=== PATIENT | male | born 1945 | race Caucasian/White ===

== ENCOUNTER → 2022-09-02 12:43 | Outpatient (CLI) | payer MEDICARE, SELFPAY ==
--- NOTE | ~2022-09-02 | US_ITS ---
EXAMINATION: US renal BI DATE: 09/02/2022 13:39 INDICATION: N18.4 - Chronic kidney disease, stage 4 (severe) TECHNIQUE: Multiple grayscale and Doppler ultrasound images of the kidneys were obtained. COMPARISON: None. FINDINGS: The right kidney measures 10.0 x 6.0 x 6.1 cm. The left kidney measures 10.4 x 4.9 x 4.2 cm. The kidn eys demonstrate increased parenchymal echogenicity, cortical thinning, and cortical scarring. Multipl e simple bilateral renal cysts. There is no hydronephrosis. The bladder wall is thickened to 7 mm. IMPRESSION: Medical renal disease. Mild renal cortical atrophy. Multiple bilateral simple renal cysts. Bladder wa ll thickening which can occur with outlet compromise and cystitis. Reviewed, dictated and finalized at location K. IMPRESSION: Medical renal disease. Mild renal cortical atrophy. Multiple bilateral simple r enal cysts. Bladder wall thickening which can occur with outlet compromise and cystitis.
== END ==
PROVIDERS: PCP Internal Medicine Cardiovascular Disease; Visit Provider Family Medicine
DX: N18.4 Chronic kidney disease, stage 4 (severe) (principal); N28.1 Cyst of kidney, acquired; R93.41 Abnormal radiologic findings on diagnostic imaging of renal pelvis, ureter, or bladder
CPT/HCPCS: 76775

== ENCOUNTER 2022-12-07 00:14 | Day surgery (SDC) | payer MEDICARE, SELFPAY ==
--- NOTE | 2022-12-07 08:45 | ECG_ITS ---
Measurements Intervals [place] Rate: 123 P: [place]: 0 QRS: 64 QRSD: 97 T: 120 QT: 328 QTc: 471 Interpretive Statements ATRIAL FIBRILLATION WITH RAPID VENTRICULAR RESPONSE ST-T WAVE ABNORMALITY IN ANTERIOR LEADS- CONSIDER ISCHEMIA BASELINE ARTIFACT- AVL, V4-V6 ABNORMAL ECG NO PREVIOUS ECG AVAILABLE FOR COMPARISON Electronically Signed On 12-07-2022 9:16:30 CDT by Sivakumar Alvarez D.O.
[2022-12-07 09:29] VITALS: BMI 28.9
[2022-12-07 09:32] LABS: Anion Gap 9 mmol/L (8-16); Blood Urea Nitrogen 32 mg/dL (9-20); Calcium 8.6 mg/dL (8.4-10.2); Carbon Dioxide 25 mmol/L (22-30); Chloride 106 mmol/L (98-107); Estimated CRCL calculation 31 ml/min; Estimated Glomerular Filt Rate 37; Glucose 173 mg/dL (65-110); Magnesium 2.2 mg/dL (1.6-2.3); Potassium 3.6 mmol/L (3.4-5.0); Sodium 140 mmol/L (137-145)
[2022-12-07 09:43] VITALS: BP 114/87; PULSE 109; RESP 20; TEMP 36.1; O2SAT 92
[2022-12-07] MEDS: DABIGATRAN ETEXILATE 150 MG CAPSULE PO (10:48)
== END 2022-12-07 11:06 | disposition home or self-care (01) ==
PROVIDERS: PCP Family Medicine; Visit Provider Internal Medicine Cardiovascular Disease
PROC: 5A2204Z Restoration of Cardiac Rhythm, Single (ICD-10-PCS; principal; 2022-12-07 08:30)
DX: I48.0 Paroxysmal atrial fibrillation (principal); I25.10 Atherosclerotic heart disease of native coronary artery without angina pectoris; I12.9 Hypertensive chronic kidney disease with stage 1 through stage 4 chronic kidney disease, or unspecified chronic kidney disease; N18.31 Chronic kidney disease, stage 3a; Z95.5 Presence of coronary angioplasty implant and graft; Z79.84 Long term (current) use of oral hypoglycemic drugs; Z79.01 Long term (current) use of anticoagulants; Z53.9 Procedure and treatment not carried out, unspecified reason
CPT/HCPCS: 36415; 80048; 83735; 99212; A9270; G0463

== ENCOUNTER 2022-12-13 00:17 | Day surgery (SDC) | payer MEDICARE, SELFPAY ==
[2022-12-12 17:00] VITALS: BMI 28.9
[2022-12-13] VITALS (23 sets, daily range): BP systolic 69–120; BP diastolic 49–100; PULSE 57–113; RESP 7–26; TEMP 35.9; O2SAT 92–100; BMI 29.2
--- NOTE | 2022-12-13 08:30 | ECG_ITS ---
Measurements Intervals [place] Rate: 59 P: 39 GA: 194 QRS: 67 QRSD: 102 T: 120 QT: 478 QTc: 477 Interpretive Statements SINUS BRADYCARDIA POSSIBLE RIGHT VENTRICULAR CONDUCTION DELAY [RSR (QR) IN V1/V2] ST DEVIATION AND MODERATE T-WAVE ABNORMALITY, CONSIDER ANTERIOR ISCHEMIA [-0.1+ mV T WAVE IN V3/V4] COMPARED TO ECG 12/13/2022 08:53:17 SINUS BRADYCARDIA NOW PRESENT Electronically Signed On 12-13-2022 12:41:33 CDT by Shanita Marin M.D.
[2022-12-13 09:12] LABS: Anion Gap 8 mmol/L (8-16); Blood Urea Nitrogen 32 mg/dL (9-20); Calcium 8.4 mg/dL (8.4-10.2); Carbon Dioxide 27 mmol/L (22-30); Chloride 104 mmol/L (98-107); Estimated CRCL calculation 33 ml/min; Estimated Glomerular Filt Rate 39; Glucose 194 mg/dL (65-110); Magnesium 2.3 mg/dL (1.6-2.3); Potassium 4.5 mmol/L (3.4-5.0); Sodium 139 mmol/L (137-145)
--- NOTE | 2022-12-13 10:01 | WPDHPUPDATE1 ---
History and Physical Update Update Date/Time: 12/13/22 10:01 History and Physical has been reviewed, including an updated exam of the patient. There are NO changes in the patient's condition. Risks, benefits, and alternatives have been discussed and questions answered. Patient agrees to proceed with procedure.
--- NOTE | 2022-12-13 10:01 | WPDMODSED ---
Moderate Sedation Note-Pt Data Patient Data Diagnosis: Atrial fibrillation Present Complaint: Atrial fibrillation Procedure to be performed/Plan: Cardioversion Allergies Allergy/AdvReac Type Severity Reaction Status Date / Time No Known Allergies Allergy NONE Verified 12/12/22 18:41 Home Medications Medication Instructions Recorded Confirmed Type dabigatran etexilate 150 mg 150 mg PO BID 02/05/19 12/12/22 History capsule (Pradaxa) nitroglycerin 0.4 mg sublingual 0.4 mg sublingual Q5M PRN Chest 02/05/19 12/12/22 History tablet (Nitrostat) Pain cholecalciferol (vitamin D3) 50 50 mcg PO DAILY 07/12/19 12/12/22 History mcg (2,000 unit) capsule coenzyme Q10 400 mg capsule (Co 400 mg PO DAILY 07/12/19 12/12/22 History Q-10) multivitamin with minerals (Men's 1 tablet PO DAILY 07/12/19 12/12/22 History One Daily tablet) ezetimibe 10 mg tablet 10 mg PO DAILY 12/02/19 12/12/22 History metoprolol tartrate 100 mg tablet 200 mg PO Q12H 12/02/19 12/12/22 History rosuvastatin 40 mg tablet 40 mg PO DAILY 12/02/19 12/12/22 History garlic 3 mg capsule 3 mg PO DAILY 05/12/20 12/12/22 History blood sugar diagnostic (Contour #100 ea 11/24/21 08/11/22 Rx Test Strips) glimepiride 4 mg tablet 4 mg PO BID #180 tabs 05/30/22 12/12/22 Rx empagliflozin 10 mg tablet 10 mg PO DAILY #90 tabs 11/25/22 12/12/22 Rx (Jardiance) indapamide 2.5 mg tablet 2.5 mg PO EVERY OTHER DAY #15 tabs 12/07/22 12/12/22 Rx Current Medications: Active Medications Sodium Chloride (Normal Saline Iv) 1,000 mls @ 30 mls/hr IV CONT .Q24H ANICETO Sedation/Anesthesia: No previous sedation/anesthesia problems (including family history). [facility] Past Medical History Medical History CAD in [place] artery Carotid artery disease Chronic renal insufficiency, stage IV (severe) Hyperlipidemia Type 2 diabetes mellitus Surgical History Surgical History History of cardiac catheterization (2002) History of carotid endarterectomy (05/15/09) History of heart artery stent History of total hip replacement Hx of right cataract extraction Family History Family History Father Cerebrovascular accident Carcinoma of colon Sibling Family history of malignant neoplasm of breast in first degree relative Mother Family history of heart disease in male family member before age 55 Family history of cardiovascular disease Other Diabetes mellitus Hypertension Social History Social History Smoking status: Never smoker Second hand tobacco smoke exposure: No Alcohol intake: never Substance use: never Substance use type: does not use Lack of Transportation: No Lack of Food: Never True Current Housing: I Have Housing Concerned About Future Housing: No Difficulty Paying Gas/Electric Bills: No Difficulty Paying for Meds: No Currently Unemployed: No Education: High School Diploma/GED Difficulty w/ Childcare or Family Care: No Living arrangements: alone Occupation/Education: retired Gender identity (if verbalized by the patient): Male Sexual Orientation (if Verbalized by the Patient): Straight or Heterosexual Spiritual care concerns: No Agree to blood products: Yes Mod Sed Physical Exam Physical Exam Pre Procedural Exam: Normal: Appearance, Neuro Exam, Extremities and Skin and Variation: Heart Rate (Rate controlled atrial fibrillation ) and Heart Rhythm (Atrial fibrillation, rate controlled) Hours since solid foods: 12 Hours since liquid intake: 8 Mallampati Classification: class III Internal Medicine - PN: Obj Da Vital Signs Vital Signs: Vital Signs - 24 hr 12/13/22 08:52 Temperature 35.9 C L Pulse Rate 91 Respiratory Rate 26 H Pulse Oximetry 92 Oxygen Delivery Room Air Meds/Results Medicat
--- NOTE | 2022-12-13 10:02 | WPDCARDVER ---
Cardioversion Cardioversion Date of procedure: 12/13/22 Procedure: Synchronized electrical cardioversion Pre-op diagnosis: Atrial fibrillation Post-op diagnosis: Other (Sinus rhythm ) Indications: Atrial fibrillation Description of procedure: Patient [facility] for outpatient elective cardioversion for atrial fibrillation. Procedure discussed with the patient, including procedure details, risks vs benefits. Written informed consent obtained. Patient respiratory status and hemodynamics were monitored throughout. Time out performed by SAWYER Yang. Total of Propofol 40mg IV administered by me. After patient was adequately sedated, synchronized cardioversion was performed with 1 shock at 200 joules, which converted patient to sinus rhythm. Sedation: Total of Propofol 40mg IV Findings: Successful cardioversion to sinus rhythm with 1 shock at 200 joules. Conclusion: Successful cardioversion to sinus rhythm with 1 shock at 200 joules.
--- NOTE | 2022-12-13 10:15 | ECG_ITS ---
Measurements Intervals [place] Rate: 100 P: [place]: 0 QRS: 60 QRSD: 97 T: 0 QT: 368 QTc: 475 Interpretive Statements ATRIAL FIBRILLATION WITH RAPID VENTRICULAR RESPONSE ST DEVIATION AND MODERATE T-WAVE ABNORMALITY, CONSIDER ANTERIOR ISCHEMIA [-0.1+ mV T WAVE IN V3/V4] COMPARED TO ECG 12/07/2022 08:52:02 NO SIGNIFICANT CHANGES Electronically Signed On 12-13-2022 12:37:03 CDT by Shanita Marin M.D.
== END 2022-12-13 13:02 | disposition home or self-care (01) ==
PROVIDERS: PCP Family Medicine; Visit Provider Internal Medicine
PROC: 5A2204Z Restoration of Cardiac Rhythm, Single (ICD-10-PCS; principal; 2022-12-13 10:00)
DX: I48.0 Paroxysmal atrial fibrillation (principal); I25.10 Atherosclerotic heart disease of native coronary artery without angina pectoris; I12.9 Hypertensive chronic kidney disease with stage 1 through stage 4 chronic kidney disease, or unspecified chronic kidney disease; E11.22 Type 2 diabetes mellitus with diabetic chronic kidney disease; N18.4 Chronic kidney disease, stage 4 (severe); E78.5 Hyperlipidemia, unspecified; Z79.84 Long term (current) use of oral hypoglycemic drugs; Z79.01 Long term (current) use of anticoagulants; Z95.5 Presence of coronary angioplasty implant and graft
CPT/HCPCS: 36415; 80048; 83735; 92960; J2704; J7030

== ENCOUNTER 2023-01-09 12:03 | Observation (INO) | payer MEDICARE, SELFPAY ==
[2023-01-09] VITALS (14 sets, daily range): BP systolic 99–137; BP diastolic 61–99; PULSE 86–140; RESP 16–20; TEMP 36.2–36.7; O2SAT 95–98; BMI 27.8
--- NOTE | ~2023-01-09 | XR_ITS ---
EXAMINATION: XR chest 1V portable DATE: 01/09/2023 13:21 INDICATION: Atrial fibrillation with rapid ventricular response TECHNIQUE: frontal view of the chest was obtained. COMPARISON: Chest radiograph dated 03/17/2009 FINDINGS: Mild elevation right hemidiaphragm. There are airspace opacities in the right lower lung zone which i nclude a small right pleural effusion. Mild left basilar opacities with very small left pleural effus ion. No pneumothorax. Heart size is normal. Coronary artery stenting. Tortuous and atherosclerotic th oracic aorta. Mild to moderate degenerative skeletal changes in the spine and at both shoulders. IMPRESSION: 1. Opacities at the bilateral lower lung zones, right greater than left which could represent atelect asis, pneumonia, mild pulmonary edema or some combination thereof. 2. Small bilateral pleural effusions, right greater than left. Reviewed, dictated and finalized at location A. IMPRESSION: 1. Opacities at the bilateral lower lung zones, right greater than left which c ould represent atelectasis, pneumonia, mild pulmonary edema or some combination thereof. 2. Small bilateral pleural effusions, right greater than left.
--- NOTE | 2023-01-09 12:12 | ECG_ITS ---
Measurements Intervals [place] Rate: 128 P: RI: 347 QRS: 61 QRSD: 100 T: 260 QT: 335 QTc: 489 Interpretive Statements ATRIAL FIBRILLATION WITH RAPID VENTRICULAR RESPONSE ST DEVIATION AND MODERATE T-WAVE ABNORMALITY, CONSIDER ANTERIOR ISCHEMIA [-0.1+ mV T WAVE IN V3/V4] ST DEVIATION AND MODERATE T-WAVE ABNORMALITY, CONSIDER INFERIOR ISCHEMIA [-0.1+ mV T WAVE IN II/aVF] COMPARED TO ECG 12/13/2022 10:13:36 ATRIAL FIBRILLATION WITH RVR NOW PRESENT Electronically Signed On 01-10-2023 11:20:06 CDT by Shanita Marin M.D.
[2023-01-09] MEDS: SODIUM CHLORIDE 0.9% IV 500 ML 999 ML IV CONT (12:59)
[2023-01-09] MEDS: dilTIAZem HCl INJ 25 MG/5 ML VIAL 10 MG IV PUSH ×2 (13:02→15:39)
[2023-01-09 13:25] LABS: Basophils Percent Auto 0.3 % (0.2-1.2); Eosinophils Absolute Auto 0.1 K/mm3 (0-0.3); Hematocrit 40.4 % (42.0-52.0); Hemoglobin 11.4 g/dL (14.0-18.0); Immature Granulocyte Absolute 0.03 K/mm3 (0.00-0.031); Immature Granulocyte Percent A 0.4 % (0-0.5); Lymphocytes Absolute Auto 0.87 K/mm3 (0.9-3.2); Lymphocytes Percent Auto 12.8 % (18.3-44.2); Mean Corpuscular HGB Conc 28.2 g/dl (32-36); Mean Corpuscular Volume 92.2 fl (80-100); Mean Platelet Volume 10.7 fl (7.4-10.4); Monocytes Absolute Auto 0.7 K/mm3 (0.1-0.6); Monocytes Percent Auto 10.3 % (2.6-8.5); Neutrophils Absolute Auto 5.1 K/mm3 (1.3-6.7); Neutrophils Percent Auto 75.2 % (45.5-73.1); Nucleated Red Blood Cells Perc 0.3 % (0.0-0.2); Platelet Count Result 233 k/mm3 (150-375); Red Blood Count 4.38 M/mm3 (4.6-6.20); Red Cell Distribution Width 18.8 % (11.5-14.5); White Blood Count 6.8 K/mm3 (4.5-10.0)
[2023-01-09 13:38] LABS: Anisocytosis 2+ (NORMAL); Hypochromasia 1+ (NORMAL); Platelet Estimate Adequate (Adequate); Schistocytes None Seen (NORMAL)
[2023-01-09 13:41] LABS: Alanine Aminotransferase 77 U/L (6-50); Albumin Level 3.8 g/dL (3.5-5.1); Alkaline Phosphatase 140 U/L (38-126); Anion Gap 8 mmol/L (8-16); Aspartate Amino Transferase 84 U/L (17-59); Bilirubin,Total 0.9 mg/dL (0.2-1.3); Blood Urea Nitrogen 29 mg/dL (9-20); Calcium 8.8 mg/dL (8.4-10.2); Carbon Dioxide 31 mmol/L (22-30); Chloride 95 mmol/L (98-107); Estimated CRCL calculation 37 ml/min; Estimated Glomerular Filt Rate 45; Glucose 159 mg/dL (65-110); Magnesium 2.3 mg/dL (1.6-2.3); Potassium 3.6 mmol/L (3.4-5.0); Sodium 134 mmol/L (137-145)
[2023-01-09 14:02] LABS: Troponin I 0.043 ng/mL (0.000-0.034)
--- NOTE | 2023-01-09 15:16 | ED.RECABL ---
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 The patient states he was presenting for a routine appointment, when he was found to be tachycardic. He denies chest pain, shortness of breath or loss of consciousness. Related Data Home Medications Medication Instructions Recorded Confirmed dabigatran etexilate 150 mg 150 mg PO BID 02/05/19 01/02/23 capsule (Pradaxa) nitroglycerin 0.4 mg sublingual 0.4 mg sublingual Q5M PRN Chest 02/05/19 01/02/23 tablet (Nitrostat) Pain cholecalciferol (vitamin D3) 50 50 mcg PO DAILY 07/12/19 01/02/23 mcg (2,000 unit) capsule coenzyme Q10 400 mg capsule (Co 400 mg PO DAILY 07/12/19 01/02/23 Q-10) multivitamin with minerals (Men's 1 tablet PO DAILY 07/12/19 01/02/23 One Daily tablet) ezetimibe 10 mg tablet 10 mg PO DAILY 12/02/19 01/02/23 metoprolol tartrate 100 mg tablet 200 mg PO Q12H 12/02/19 01/02/23 rosuvastatin 40 mg tablet 40 mg PO DAILY 12/02/19 01/02/23 garlic 3 mg capsule 3 mg PO DAILY 05/12/20 01/02/23 Allergies Allergy/AdvReac Type Severity Reaction Status Date / Time No Known Allergies Allergy NONE Verified 01/09/23 11:14 Review of Systems Review of Systems: CONSTITUTIONAL: Denies fever, chills, or sweats. CARDIOVASCULAR: Denies chest pain, palpitations, or edema. RESPIRATORY: Denies cough or dyspnea. GASTROINTESTINAL: Denies abdominal pain, nausea, vomiting, or diarrhea. GENITOURINARY: Denies dysuria or hematuria. SKIN: Denies rash or itching. MUSCULOSKELETAL: Denies back pain, joint pain, or myalgia. NEUROLOGIC: Denies headache, numbness, dizziness, or weakness. PSYCHIATRIC: Denies anxiety or depression. [facility] Past Medical History Medical History (Updated 01/09/23 @ 15:20 by Louis Ibrahim MD) Atrial fibrillation with normal ventricular rate CAD in [place] artery Carotid artery disease Chronic renal insufficiency, stage IV (severe) Hyperlipidemia Type 2 diabetes mellitus Surgical History Surgical History History of cardiac catheterization (2002) History of carotid endarterectomy (05/15/09) History of heart artery stent History of total hip replacement Hx of right cataract extraction Family History Family History Father Cerebrovascular accident Carcinoma of colon Sibling Family history of malignant neoplasm of breast in first degree relative Mother Family history of heart disease in male family member before age 55 Family history of cardiovascular disease Other Diabetes mellitus Hypertension Social History Social History Smoking status: Never smoker Second hand tobacco smoke exposure: No Alcohol intake: never Substance use: never Substance use type: does not use Lack of Transportation: No Lack of Food: Never True Current Housing: I Have Housing Concerned About Future Housing: No Difficulty Paying Gas/Electric Bills: No Difficulty Paying for Meds: No Currently Unemployed: No Education: High School Diploma/GED Difficulty w/ Childcare or Family Care: No Living arrangements: alone Occupation/Education: retired Gender identity (if verbalized by the patient): Male Sexual Orientation (if Verbalized by the Patient): Straight or Heterosexual Spiritual care concerns: No Agree to blood products: Yes Exam Narrative: GENERAL: Well-developed, well-nourished, and in no acute distress. HEAD: Normocephalic, atraumatic. EYES: PERRLA and EOMI. ENT: Nares clear, no rhinorrhea or epistaxis. Mucous membranes moist. Oropharynx wit
[2023-01-09 18:06] LABS: Troponin I 0.041 ng/mL (0.000-0.034)
--- NOTE | 2023-01-09 19:00 | ADMGEN ---
This patient, Andrei Rao, was admitted to IMU Room 200-01. Patient/family oriented to hospital policies and general routines including ID bracelet, bed and alarms, visiting hours, pain management, procedures, bathroom and other care routines, personal items, smoking policy, room service/diet, and visiting hours. Information on how to activate the Rapid Response Team has been discussed. Patient/Family are encouraged to report perceived risks to care and to ask questions if they do not understand what they are told or what they should do.
--- NOTE | 2023-01-09 19:09 | PM.IMHP ---
H&P: HPI History of Present Illness Date/Time: 01/09/23 18:00 Chief Complaint: Rapid heart rate. Narrative: This is a pleasant 77-year-old male with coronary artery disease status post stent, carotid artery disease status post carotid endarterectomy, paroxysmal atrial fibrillation on chronic anticoagulation, type 2 diabetes mellitus, chronic kidney disease stage 3, hypertension, and hyperlipidemia who presented to the emergency department from Dr. Dorsey's office for evaluation of a rapid heart rate. The patient provides the following history. In August of this year he saw Dr. Smith in routine follow-up in had lab work drawn which revealed that his GFR has fallen to 29. He was told to stop taking indapamide and sometime later his GFR mino to 40. Since that time however he has developed increasing lower extremity edema and he was started back on the drug 3 times a week which did not seem to help. It was then increased to 4 times a week without much benefit and he has been back on indapamide daily for the last 3 weeks or so. His swelling has improved and today he had an initial consultation with Dr. Dorsey regarding his kidney function. Vital signs during that visit were significant for rapid atrial fibrillation with rates into the 150s and soft blood pressures. He was directed to the emergency department for further evaluation. Aside from a decrease in energy the past couple of months, he does not have any significant complaints. Regarding the atrial fibrillation, he is completely asymptomatic with that. Patient reports that he had an elective cardioversion on December 13 and to his knowledge he thought he was back in a normal rhythm. In the ED today he was given 2 separate boluses of IV diltiazem 10 mg with improvement in his rates. His troponin came back a bit elevated 0.043 and he is being admitted in this setting for rate control and in order to trend troponins though he is not having any chest pain. EKG shows an electronic atrial pacemaker with ST depression and T-wave abnormalities in V2 through V5 and some ST depression in the high lateral leads as well. Review of Systems Review of Systems: Twelve systems were reviewed. No fever, chills, or sweats. He does have a cough which is occasionally productive of clear sputum. He denies sinus congestion sore throat. No known sick contacts. He denies chest and pleuritic pain. No sensations of racing heart or palpitations. He denies shortness of breath. No nausea, vomiting, or diarrhea. Except as documented, all other systems were reviewed and are negative. [facility] Past Medical History Medical History (Updated 01/09/23 @ 22:49 by Francesca Chilel PA-C) Carotid artery disease Chronic anticoagulation Chronic kidney disease, stage 3 Coronary artery disease Hyperlipidemia Paroxysmal atrial fibrillation Type 2 diabetes mellitus Surgical History Surgical History History of cardiac catheterization (2002) History of carotid endarterectomy (05/15/09) History of heart artery stent History of total hip replacement Hx of right cataract extraction Family History Family History Father Cerebrovascular accident Carcinoma of colon Sibling Family history of malignant neoplasm of breast in first degree relative Mother Family history of heart disease in male family member before age 55 Family history of cardiovascular disease Other Diabetes mellitus Hypertension Social History Social History (Updated 01/09/23 @ 22:46 by Francesca Chilel PA-C) Social History: Surrogate medical decision maker: Razia Petit, niece. Code status: Full code. Smoking status: Never smoker Second hand tobacco smoke exposure: No Alcohol intake: never Substance use: never Substance use type: does not use Lack of Transportation: No Lack of Food: Never True Current Housing: I Have
[2023-01-09 19:43] LABS: Troponin I 0.041 ng/mL (0.000-0.034)
[2023-01-09 19:52] LABS: Glucose Point of Care 82 mg/dl (65-105)
[2023-01-09] MEDS: METOPROLOL TARTRATE 50 MG TAB 200 MG PO (23:35)
[2023-01-09] MEDS: DABIGATRAN ETEXILATE 150 MG CAPSULE PO (23:35)
[2023-01-10] VITALS (30 sets, daily range): BP systolic 83–120; BP diastolic 43–98; PULSE 54–127; RESP 11–29; TEMP 36–36.4; O2SAT 92–100
[2023-01-10 05:02] LABS: Basophils Percent Auto 0.6 % (0.2-1.2); Eosinophils Absolute Auto 0.1 K/mm3 (0-0.3); Eosinophils Percent Auto 2.2 % (0-4.4); Hematocrit 36.1 % (42.0-52.0); Hemoglobin 10.2 g/dL (14.0-18.0); Immature Granulocyte Absolute 0.02 K/mm3 (0.00-0.031); Immature Granulocyte Percent A 0.4 % (0-0.5); Lymphocytes Absolute Auto 0.58 K/mm3 (0.9-3.2); Lymphocytes Percent Auto 11.5 % (18.3-44.2); Mean Corpuscular HGB Conc 28.3 g/dl (32-36); Mean Corpuscular Hemoglobin 25.7 pg (26-34); Mean Corpuscular Volume 90.9 fl (80-100); Mean Platelet Volume 10.3 fl (7.4-10.4); Monocytes Absolute Auto 0.7 K/mm3 (0.1-0.6); Monocytes Percent Auto 13.1 % (2.6-8.5); Neutrophils Absolute Auto 3.6 K/mm3 (1.3-6.7); Neutrophils Percent Auto 72.2 % (45.5-73.1); Platelet Count Result 202 k/mm3 (150-375); Red Blood Count 3.97 M/mm3 (4.6-6.20); Red Cell Distribution Width 18.6 % (11.5-14.5)
[2023-01-10 05:15] LABS: Alanine Aminotransferase 64 U/L (6-50); Albumin Level 3.2 g/dL (3.5-5.1); Alkaline Phosphatase 113 U/L (38-126); Anion Gap 5 mmol/L (8-16); Aspartate Amino Transferase 65 U/L (17-59); Bilirubin,Total 0.7 mg/dL (0.2-1.3); Blood Urea Nitrogen 29 mg/dL (9-20); Calcium 8.4 mg/dL (8.4-10.2); Carbon Dioxide 30 mmol/L (22-30); Chloride 100 mmol/L (98-107); Estimated CRCL calculation 40 ml/min; Estimated Glomerular Filt Rate 49; Glucose 186 mg/dL (65-110); Magnesium 2.3 mg/dL (1.6-2.3); Potassium 3.3 mmol/L (3.4-5.0); Sodium 135 mmol/L (137-145)
[2023-01-10 05:36] LABS: Anisocytosis 1+ (NORMAL); Hypochromasia 1+ (NORMAL); Platelet Estimate Adequate (Adequate); Schistocytes None Seen (NORMAL)
--- NOTE | 2023-01-10 08:35 | PM.CNCAR ---
Assessment and Plan Assessment and plan (1) Atrial fibrillation with rapid ventricular response: Code(s): I48.91 - Unspecified atrial fibrillation Status: Acute Assessment and Plan: History of paroxysmal atrial fibrillation status post electrical cardioversion on 12/13/2022 with jew of sinus rhythm now with recurrence of atrial fibrillation with RVR. Plan for DCCV today. K+ 3.3, so will give 40 mEq p.o. now Continue a/c with Pradaxa (confirmed with pt. that he has not missed any doses). Continue metoprolol tartrate - can shift to Toprol XL at d/c for dosing convenience Close outpatient EP follow up to consider ablation/PPM placement or other management options If he remains stable after DCCV, could discharge later today (2) Coronary artery disease: Code(s): I25.10 - Atherosclerotic heart disease of [place] coronary artery without angina pectoris Status: Acute Assessment and Plan: Stable, asymptomatic. Continue statin. Not on ASA since he takes DOAC (3) Chronic anticoagulation: Code(s): Z79.01 - jail (current) use of anticoagulants Status: Acute Assessment and Plan: Continue a/c with Pradaxa (4) Hypokalemia: Code(s): E87.6 - Hypokalemia Status: Acute Assessment and Plan: K+ 3.3. Give 40 mEq KCL now. History of Present Illness History of Present Illness Consult date/time: 01/10/23 08:35 Requesting physician: Francesca Chilel PA-C Consult reason: atrial fibrillation Reason For Visit: Afib RVR Narrative: Andrei Rao is a 77-year-old male with history of coronary artery disease with chronic total occlusion of the RCA, carotid artery disease status post carotid endarterectomy, peripheral arterial disease, hypertension, dyslipidemia, and paroxysmal atrial fibrillation. He also has a history of persistent atrial flutter status post ablation of cavotricuspid isthmus dependent atrial flutter on 04/20/2021. This is a patient who underwent electrical cardioversion here with successful jew of sinus rhythm. He presents to the hospital now with recurrent atrial fibrillation with rapid ventricular response. 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 He denies feeling any palpitations, chest pain, shortness of breath. He does endorse fatigue. He was given a couple of doses of IV push diltiazem and his rate remains elevated but he is asymptomatic. Review of Systems Review of Systems: All systems reviewed & are unremarkable except as noted in HPI and below PMFSH Past Medical History Medical History Carotid artery disease Chronic anticoagulation Chronic kidney disease, stage 3 Coronary artery disease Hyperlipidemia Paroxysmal atrial fibrillation Type 2 diabetes mellitus Surgical History Surgical History History of cardiac catheterization (2002) History of carotid endarterectomy (05/15/09) History of heart artery stent History of total hip replacement Hx of right cataract extraction Family History Family History Father Cerebrovascular accident Carcinoma of colon Sibling Family history of malignant neoplasm of breast in first degree relative Mother Family history of heart disease in male family member before age 55 Family history of cardiovascular disease Other Diabetes mellitus Hypertension Social History Social History Social History: Surrogate medical decision maker: Razia Petit, niece. Code status: Full code. Smoking status: Never smoker Second hand tobacco smoke exposure: No Alcohol intake: never Substance use: never Substance use type: does not use Lack of Transportation: No Lack of Food: Never True Current
[2023-01-10 08:56] LABS: Glucose Point of Care 158 mg/dl (65-105)
[2023-01-10] MEDS: GLIMEPIRIDE 2 MG TABLET 4 MG PO ×2 (09:08→17:01)
[2023-01-10] MEDS: CHOLECALCIFEROL 1,000 UNITS TABLET 2000 UNITS PO (09:08)
[2023-01-10] MEDS: METOPROLOL TARTRATE 50 MG TAB 200 MG PO ×2 (09:09→20:22)
[2023-01-10] MEDS: EMPAGLIFLOZIN 10 MG TABLET PO (09:13)
[2023-01-10] MEDS: INDAPAMIDE 2.5 MG TABLET PO (09:15)
[2023-01-10] MEDS: EZETIMIBE 10 MG TABLET PO (09:16)
[2023-01-10] MEDS: ROSUVASTATIN 10 MG TABLET 40 MG PO (09:18)
[2023-01-10] MEDS: DABIGATRAN ETEXILATE 150 MG CAPSULE PO ×2 (09:21→20:21)
[2023-01-10] MEDS: POTASSIUM CHLORIDE 20 MEQ ER TABLET 40 MEQ PO (10:47)
--- NOTE | 2023-01-10 12:56 | PC.NURSE ---
to [facility] for cardioversion-via bed accompanied by [facility] RN -consent signed-
--- NOTE | 2023-01-10 13:03 | ECG_ITS ---
Measurements Intervals [place] Rate: 54 P: [place]: 0 QRS: 35 QRSD: 102 T: -60 QT: 464 QTc: 441 Interpretive Statements SINUS BRADYCARDIA ATRIAL PREMATURE COMPLEX AND NON-CONDUCTED ATRIAL PREMATURE COMPLEX INCOMPLETE RIGHT BUNDLE BRANCH BLOCK ST-T WAVE ABNORMALITY IN ANTERIOR LEADS- CONSIDER ISCHEMIA BASELINE ARTIFACT- II, III, V1 ABNORMAL ECG COMPARED TO ECG 01/09/2023 12:19:01 SINUS BRADYCARDIA NOW PRESENT Electronically Signed On 01-11-2023 6:39:16 CDT by Sivakumar Alvarez D.O.
[2023-01-10 13:07] LABS: Glucose Point of Care 135 mg/dl (65-105)
--- NOTE | 2023-01-10 13:37 | WPDMODSED ---
Moderate Sedation Note-Pt Data Patient Data Diagnosis: Atrial fibrillation with RVR Present Complaint: Atrial fibrillation with RVR Procedure to be performed/Plan: Cardioversion Allergies Allergy/AdvReac Type Severity Reaction Status Date / Time No Known Allergies Allergy NONE Verified 01/09/23 11:14 Home Medications Medication Instructions Recorded Confirmed Type dabigatran etexilate 150 mg 150 mg PO BID 02/05/19 01/09/23 History capsule (Pradaxa) nitroglycerin 0.4 mg sublingual 0.4 mg sublingual Q5M PRN Chest 02/05/19 01/09/23 History tablet (Nitrostat) Pain cholecalciferol (vitamin D3) 50 50 mcg PO DAILY 07/12/19 01/09/23 History mcg (2,000 unit) capsule coenzyme Q10 400 mg capsule (Co 400 mg PO DAILY 07/12/19 01/09/23 History Q-10) multivitamin with minerals (Men's 1 tablet PO DAILY 07/12/19 01/09/23 History One Daily tablet) ezetimibe 10 mg tablet 10 mg PO DAILY 12/02/19 01/09/23 History metoprolol tartrate 100 mg tablet 200 mg PO Q12H 12/02/19 01/09/23 History rosuvastatin 40 mg tablet 40 mg PO DAILY 12/02/19 01/09/23 History garlic 3 mg capsule 3 mg PO DAILY 05/12/20 01/09/23 History glimepiride 4 mg tablet 4 mg PO BID #180 tabs 05/30/22 01/09/23 Rx empagliflozin 10 mg tablet 10 mg PO DAILY #90 tabs 11/25/22 01/09/23 Rx (Jardiance) blood sugar diagnostic (Contour #100 ea 01/03/23 01/09/23 Rx Test Strips) ferrous sulfate 325 mg (65 mg 325 mg PO DAILY #30 tabs 01/04/23 01/09/23 Rx iron) tablet (Iron (ferrous sulfate)) indapamide 2.5 mg tablet 2.5 mg PO DAILY 01/09/23 01/09/23 History Current Medications: Active Medications Dabigatran (Dabigatran Etexilate 150 Mg Capsule) 150 mg PO Q12HR ANICETO Last Admin: 01/10/23 09:21 Dose: 150 mg Dextrose (Dextrose 50% 25 Gm/50 Ml Syringe) 12.5 gm IV PUSH PRN PRN; Protocol PRN Reason: Hypoglycemia Ezetimibe (Ezetimibe 10 Mg Tablet) 10 mg PO DAILY [facility] Last Admin: 01/10/23 09:16 Dose: 10 mg Empagliflozin (Empagliflozin 10 Mg Tablet) 10 mg PO DAILY [facility] Last Admin: 01/10/23 09:13 Dose: 10 mg Ferrous Sulfate (Ferrous Sulfate [address]) 325 mg BY MOUTH DAILY [facility] Last Admin: 01/10/23 09:14 Dose: Not Given Glimepiride (Glimepiride 2 Mg Tablet) 4 mg PO BIDWM [facility] Last Admin: 01/10/23 09:08 Dose: 4 mg Glucagon (Glucagon For Inj 1 Mg Vial) 1 mg IM PRN PRN; Protocol PRN Reason: Hypoglycemia Glucose (Glucose Oral Gel 15 Gm Of Glucse In 37.5 Gm Tube) 15 gm PO PRN PRN; Protocol PRN Reason: Hypoglycemia Dextrose (Dextrose 5% 1,000 Ml) 1,000 mls @ 100 mls/hr IVPB PRN PRN; Protocol PRN Reason: Hypoglycemia Sodium Chloride (Normal Saline Iv) 500 mls @ 500 mls/hr IV CONT .Q1H ONE Stop: 01/10/23 14:03 Indapamide (Indapamide 2.5 Mg Tablet) 2.5 mg PO DAILY [facility] Last Admin: 01/10/23 09:15 Dose: 2.5 mg Insulin Aspart (Insulin Aspart (*Bkc) 100 Units/Ml) 3 - 6 units SUB-Q TIDWM [facility]; Protocol Last Admin: 01/10/23 12:48 Dose: Not Given Insulin Aspart (Insulin Aspart (*Bkc) 100 Units/Ml) 1 - 3 units SUB-Q HS [facility]; Protocol Metoprolol Tartrate (Metoprolol Tartrate 50 Mg Tab) 200 mg PO Q12HR [facility] Last Admin: 01/10/23 09:09 Dose: 200 mg Multivitamins/Calcium (Therapeutic Multivitamins/Minerals Tab (*Bkc)) 1 tablet PO DAILY [facility] Last Admin: 01/10/23 09:17 Dose: Not Given Coenzyme Q10 [Co Q- (10] 400 Mg Capsule) 1 each XX DAILY [facility] Stop: 02/09/23 08:59 Garlic 3 Mg Capsule 1 each XX DAILY [facility] Stop: 11/29/23 23:14 Rosuvastatin Calcium (Rosuvastatin 10 Mg Tablet) 40 mg PO DAILY [facility] Last Admin: 01/10/23 09:18 Dose: 40 mg Vitamin D (Cholecalciferol 1,000 Units Tablet) 2,000 units PO DAILY [facility] Last Admin: 01/10/23 09:08 Dose: 2,000 units Sedation/Anesthesia: No previous sedation/anesthesia problems (including family history). [facility] Past Medical History Medical History Carotid artery disease Chronic anticoagulation Chronic kidney disease, stage 3
--- NOTE | 2023-01-10 13:38 | WPDCARDVER ---
Cardioversion Cardioversion Date of procedure: 01/10/23 Procedure: Synchronized electrical cardioversion Pre-op diagnosis: Atrial fibrillation with RVR Post-op diagnosis: Other (Sinus rhythm) Indications: Atrial fibrillation with RVR Description of procedure: Patient presented [facility]version for atrial fibrillation. Procedure discussed with the patient, including procedure details, risks vs benefits. Written informed consent obtained. Patient respiratory status and hemodynamics were monitored throughout. Time out performed by SAWYER Yang. Total of Propofol 40mg IV administered by me. After patient was adequately sedated, synchronized cardioversion was performed with 1 shock at 200 joules, which converted patient to sinus rhythm. Sedation: Total of Propofol 40mg IV Findings: Successful cardioversion to sinus rhythm with 1 shock at 200 joules. Conclusion: Successful cardioversion to sinus rhythm with 1 shock at 200 joules.
--- NOTE | 2023-01-10 14:44 | PM.IMPN ---
Progress Note: A&P Assessment and Plan (1) Atrial fibrillation with rapid ventricular response: Code(s): I48.91 - Unspecified atrial fibrillation Status: Acute Assessment and Plan: SEE BELOW (2) Elevated troponin: Code(s): R79.89 - Other specified abnormal findings of blood chemistry Status: Acute (3) Chronic kidney disease, stage 3: Code(s): N18.30 - Chronic kidney disease, stage 3 unspecified Status: Acute (4) Elevated LFTs: Code(s): R79.89 - Other specified abnormal findings of blood chemistry Status: Acute (5) Chronic anticoagulation: Code(s): Z79.01 - nursing home (current) use of anticoagulants Status: Acute (6) Essential (primary) hypertension: Code(s): I10 - Essential (primary) hypertension Status: Acute (7) Type 2 diabetes mellitus: Qualifiers: Diabetes mellitus terminal operator insulin use: without terminal operator use Diabetes mellitus complication status: without complication Qualified Code(s): E11.9 - Type 2 diabetes mellitus without complications Code(s): E11.9 - Type 2 diabetes mellitus without complications Status: Acute Plan The patient presented to the emergency department for evaluation after he was found to be in atrial fibrillation with rapid ventricular response with rates into the 150s. Labs, imaging, EKG, and all reports were personally reviewed. He is really asymptomatic with the rapid heart rate and the patient thought he had been in normal rhythm since elective cardioversion earlier this month. Rates have improved with IV diltiazem 10 mg IV x2. Patient states compliance with his home medications and is unclear why he is back in atrial fibrillation. Continue p.o. metoprolol to 100 mg q.12 hours and dabigatran for stroke prophylaxis. Pt had successful cardioversion unfortunately pt blood pressure went low continue to watch overnite continue to watch blood pressure and HR in hospital Subjective Date/time seen: 01/10/23 14:44 Interval history: 77-year-old male with coronary artery disease status post stent, carotid artery disease status post carotid endarterectomy, paroxysmal atrial fibrillation on chronic anticoagulation, type 2 diabetes mellitus, chronic kidney disease stage 3, hypertension, and hyperlipidemia who presented to the emergency department from Dr. Dorsey's office for evaluation of a rapid heart rate. The patient provides the following history. In August of this year he saw Dr. Smith in routine follow-up in had lab work drawn which revealed that his GFR has fallen to 29. Pt had successful cardioversion unfortunately pt blood pressure went low continue to watch overnite consider DC in AM Review of Systems Review of Systems: ASymptomatic Exam Narrative: General: Well-developed, nontoxic-appearing male sitting up in bed in no acute distress. Weight: 87.9 kg. BMI: 27.8. HEENT: PERRL, EOMI. Sclera anicteric. Tacky mucous membranes. Neck: Supple. No significant JVD. Respiratory: Respirations are nonlabored. Lung sounds are a bit diminished at the bases but are otherwise clear to auscultation. Cardiovascular: Irregularly irregular rate and rhythm. Gastrointestinal: Abdomen is soft, nontender, and nondistended with positive bowel sounds. Skin: Warm and dry. No rash or lesions on limited exam. Chronic skin changes of the lower extremities. Extremities: No cyanosis or clubbing. 2+ lower extremity edema softening to the knees. Neurological: Alert. Cranial nerves 2-12 are grossly intact. No gross focal deficits to casual conversation. Psychiatric: Pleasant and cooperative with normal mood and affect. Judgment and insight intact. Objective Data Vital Signs Vital Signs: Vital Signs - 24 hr 01/09/23 15:16 01/09/23 15:53 01/09/23 17:38 Temperature Pulse Rate 104 H 97 96 Respiratory Rate 16 16 18 Blood Pressure 128/77 126/72 137/71 Pulse Oximetry 97 95 95 Oxygen Delivery Ox
--- NOTE | 2023-01-10 14:53 | PC.NURSE ---
1445-returned to room post cardioversion- monitor SR 60's with PAC's, BP 107/58- pt alert and oriented - wanting to eat- meal ordered
[2023-01-10 16:59] LABS: Glucose Point of Care 229 mg/dl (65-105)
[2023-01-10 17:13] LABS: Glucose Point of Care 271 mg/dl (65-105)
[2023-01-10] MEDS: INSULIN ASPART (*BKC) 100 UNITS/ML SUB-Q ×2 (17:14→20:23)
[2023-01-10 19:47] LABS: Glucose Point of Care 232 mg/dl (65-105)
[2023-01-11] VITALS (10 sets, daily range): BP systolic 111–140; BP diastolic 69–85; PULSE 56–80; RESP 16–20; TEMP 36.3–36.7; O2SAT 95–98
[2023-01-11] MEDS: GLIMEPIRIDE 2 MG TABLET 4 MG PO ×2 (07:58→17:10)
[2023-01-11] MEDS: METOPROLOL TARTRATE 50 MG TAB 200 MG PO (07:58)
[2023-01-11] MEDS: DABIGATRAN ETEXILATE 150 MG CAPSULE PO (07:59)
[2023-01-11] MEDS: ROSUVASTATIN 10 MG TABLET 40 MG PO (07:59)
[2023-01-11] MEDS: CHOLECALCIFEROL 1,000 UNITS TABLET 2000 UNITS PO (07:59)
[2023-01-11] MEDS: EZETIMIBE 10 MG TABLET PO (07:59)
[2023-01-11] MEDS: THERAPEUTIC MULTIVITAMINS/MINERALS TAB (*BKC) 1 TABLET PO (07:59)
[2023-01-11] MEDS: EMPAGLIFLOZIN 10 MG TABLET PO (08:00)
[2023-01-11] MEDS: INDAPAMIDE 2.5 MG TABLET PO (08:00)
[2023-01-11 08:23] LABS: Glucose Point of Care 155 mg/dl (65-105)
[2023-01-11 08:44] LABS: Anion Gap 10 mmol/L (8-16); Blood Urea Nitrogen 33 mg/dL (9-20); Calcium 8.7 mg/dL (8.4-10.2); Carbon Dioxide 22 mmol/L (22-30); Chloride 103 mmol/L (98-107); Estimated CRCL calculation 31 ml/min; Estimated Glomerular Filt Rate 37; Glucose 164 mg/dL (65-110); Potassium 4.4 mmol/L (3.4-5.0); Sodium 135 mmol/L (137-145)
--- NOTE | 2023-01-11 10:18 | PM.PNCARD ---
Progress Note: A&P Assessment and Plan (1) Atrial fibrillation with rapid ventricular response: Code(s): I48.91 - Unspecified atrial fibrillation Status: Acute Assessment and Plan: History of paroxysmal atrial fibrillation status post electrical cardioversion on 12/13/2022 with roman catholic of sinus rhythm now with recurrence of atrial fibrillation with RVR. Continue a/c with Pradaxa (confirmed with pt. that he has not missed any doses). Continue metoprolol tartrate Underwent cardioversion on 01/10 with roman catholic of sinus rhythm and remains in sinus Close outpatient EP follow up to consider ablation/PPM placement or other management options (2) Coronary artery disease: Code(s): I25.10 - Atherosclerotic heart disease of [place] coronary artery without angina pectoris Status: Acute Assessment and Plan: Stable, asymptomatic.? Continue statin.? Not on ASA since he takes DOAC (3) Chronic anticoagulation: Code(s): Z79.01 - salvage determiner (current) use of anticoagulants Status: Acute Assessment and Plan: Continue a/c with Pradaxa Plan Okay to discharge home from a cardiology standpoint. Recommendations/plan discussed with Hospitalist. Subjective Date/time seen: 01/11/23 10:18 Interval history: Reason for visit: Atrial fibrillation with RVR HPI: Andrei Rao is a 77-year-old male with history of coronary artery disease with chronic total occlusion of the RCA, carotid artery disease status post carotid endarterectomy, peripheral arterial disease, hypertension, dyslipidemia, and paroxysmal atrial fibrillation.? He also has a history of persistent atrial flutter status post ablation of cavotricuspid isthmus dependent atrial flutter on 04/20/2021.? This is a patient who underwent electrical cardioversion here with successful roman catholic of sinus rhythm.? He presents to the hospital now with recurrent atrial fibrillation with rapid ventricular response.? 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 He denies feeling any palpitations, chest pain, shortness of breath.? He does endorse fatigue.? He was given a couple of doses of IV push diltiazem and his rate remains elevated but he is asymptomatic. Date of service 01/11: Remains in sinus rhythm on tele with frequent PACs. Feeling well this morning. Exam Const: General: comfortable and no acute distress HENMT: Mouth: Yes moist mucous membranes Eyes: General: appearance normal, both eyes and all related structures Sclera: sclerae normal Resp: Effort & Inspection: normal respiratory effort Cardio: Rate: regular rate Rhythm: regular rhythm Heart sounds: no murmurs Skin: General skin exam: normal color Neuro: Speech: normal speech Psych: Mental Status: mental status grossly normal Affect: normal affect Objective Data Vital Signs Vital Signs: Vital Signs - 24 hr 01/10/23 12:00 01/10/23 12:00 01/10/23 12:00 Temperature 36.0 C L Pulse Rate 120 H 127 H 127 H Respiratory Rate 20 Blood Pressure 120/76 Pulse Oximetry 94 Oxygen Delivery Room Air Oxygen Flow Rate 01/10/23 13:05 01/10/23 13:15 01/10/23 13:35 Temperature Pulse Rate 110 H 94 58 L Respiratory Rate 23 H 20 25 H Blood Pressure 115/73 113/98 H 83/60 L Pulse Oximetry 94 100 100 Oxygen Delivery Room Air Nasal Cannula Nasal Cannula Oxygen Flow Rate 3 3 01/10/23 13:45 01/10/23 13:20 01/10/23 13:25 Temperature Pulse Rate 65 119 H 116 H Respiratory Rate 11 L 24 H 29 H Blood Pressure 83/60 L 99/72 L 90/70 L Pulse Oximetry 96 100 100 Oxygen Delivery Room Air Nasal Cannula Nasal Cannula Oxygen Flow Rate 3 3 01/10/23 13:30 01/10/23 14:01 01/10/23 14:15 Temperature Pulse Rate 104 H 59 L 62 Respiratory Rate 24 H 13 19 Blood Pressure 96/67 L 89/57 L 92/57 L Pulse Oximetry 100 92 92 Oxygen Delivery Nasal Cannula Room Air Room Air Oxygen Flow Rate 3 01/10
[2023-01-11 12:08] LABS: Glucose Point of Care 189 mg/dl (65-105)
--- NOTE | 2023-01-11 15:02 | PM.DS ---
DS: Admitting Diagnosis Discharge Date 01/11/2023 Admitting Diagnosis Rapid heart rate. DS: Discharge Diagnosis Discharge Diagnosis (1) Atrial fibrillation with rapid ventricular response: Code(s): I48.91 - Unspecified atrial fibrillation Status: Acute Assessment and Plan: SEE BELOW (2) Elevated troponin: Code(s): R79.89 - Other specified abnormal findings of blood chemistry Status: Acute (3) Chronic kidney disease, stage 3: Code(s): N18.30 - Chronic kidney disease, stage 3 unspecified Status: Acute (4) Elevated LFTs: Code(s): R79.89 - Other specified abnormal findings of blood chemistry Status: Acute (5) Chronic anticoagulation: Code(s): Z79.01 - halfway (current) use of anticoagulants Status: Acute (6) Essential (primary) hypertension: Code(s): I10 - Essential (primary) hypertension Status: Acute (7) Type 2 diabetes mellitus: Qualifiers: Diabetes mellitus complication status: without complication Diabetes mellitus emt intermediate insulin use: without alf use Qualified Code(s): E11.9 - Type 2 diabetes mellitus without complications Code(s): E11.9 - Type 2 diabetes mellitus without complications Status: Acute Plan The patient presented to the emergency department for evaluation after he was found to be in atrial fibrillation with rapid ventricular response with rates into the 150s. Labs, imaging, EKG, and all reports were personally reviewed. He is really asymptomatic with the rapid heart rate and the patient thought he had been in normal rhythm since elective cardioversion earlier this month. Rates have improved with IV diltiazem 10 mg IV x2. Patient states compliance with his home medications and is unclear why he is back in atrial fibrillation. Continue p.o. metoprolol to 100 mg q.12 hours and dabigatran for stroke prophylaxis. Pt had successful cardioversion unfortunately pt blood pressure went low continue to watch overnite continue to watch blood pressure and HR in hospital pt is stable now ok to DC seen by cardiology ok to DC DS: Summary Hospital Course Hospital Course: 77-year-old male with coronary artery disease status post stent, carotid artery disease status post carotid endarterectomy, paroxysmal atrial fibrillation on chronic anticoagulation, type 2 diabetes mellitus, chronic kidney disease stage 3, hypertension, and hyperlipidemia who presented to the emergency department from Dr. Dorsey's office for evaluation of a rapid heart rate. The patient provides the following history. In [place] of this year he saw Dr. Smith in routine follow-up in had lab work drawn which revealed that his GFR has fallen to 29. Pt had successful cardioversion unfortunately pt blood pressure went low continue to watch overnite. [facility] Time Spent with Patient Time attestation: Total time spent providing and/or coordinating discharge services:40 minutes on day of DC Exam Narrative: General: Well-developed, nontoxic-appearing male sitting up in bed in no acute distress. Respiratory: Respirations are nonlabored. Lung sounds are a bit diminished at the bases but are otherwise clear to auscultation. Cardiovascular: NSR Gastrointestinal: Abdomen is soft, nontender, and nondistended with positive bowel sounds. Skin: Warm and dry. No rash or lesions on limited exam. Chronic skin changes of the lower extremities. Extremities: No cyanosis or clubbing. 2+ lower extremity edema softening to the knees. Neurological: Alert. Cranial nerves 2-12 are grossly intact. No gross focal deficits to casual conversation. Psychiatric: Pleasant and cooperative with normal mood and affect. Judgment and insight intact. DS: Data Data Completed and Pending Labs on day of discharge: Labs from last 24 hours 01/11/23 01/11/23 01/11/23 12:02 07:59 07:27 Sodium 135 L Potassium 4.4 Chloride 103 Car
--- NOTE | 2023-01-11 17:56 | PC.NURSE ---
discharged instructions discussed with pt and family - both verbalized understanding
== END 2023-01-11 17:54 | disposition home or self-care (01) ==
LOC: ANHED 16:57 → ANHIMU 19:00
PROVIDERS: Internal Medicine; Physician Assistant; Admitting Provider Internal Medicine; Emergency Provider Preventive Medicine Aerospace Medicine; PCP Family Medicine; Visit Provider Family Medicine
PROC: 5A2204Z Restoration of Cardiac Rhythm, Single (ICD-10-PCS; principal; 2023-01-10 11:00)
DX: I48.91 Unspecified atrial fibrillation (principal); R77.8 Other specified abnormalities of plasma proteins; I77.9 Disorder of arteries and arterioles, unspecified; R91.8 Other nonspecific abnormal finding of lung field; I25.10 Atherosclerotic heart disease of native coronary artery without angina pectoris; Z95.5 Presence of coronary angioplasty implant and graft; E11.22 Type 2 diabetes mellitus with diabetic chronic kidney disease; N18.4 Chronic kidney disease, stage 4 (severe); I65.21 Occlusion and stenosis of right carotid artery; R94.31 Abnormal electrocardiogram [ECG] [EKG]; D63.1 Anemia in chronic kidney disease; E87.6 Hypokalemia; E87.1 Hypo-osmolality and hyponatremia; E78.5 Hyperlipidemia, unspecified; Z79.01 Long term (current) use of anticoagulants; Z79.84 Long term (current) use of oral hypoglycemic drugs; Z79.899 Other long term (current) drug therapy
CPT/HCPCS: 36415; 71045; 80048; 80053; 80076; 82948; 83036; 83735; 84443; 84484; 85025; 92960; 93005; 96361; 96374; 96376; 99285; A9270; G0378; J1815; J2704; J7040

== ENCOUNTER 2023-01-12 11:01 | Emergency (ER) | payer MEDICARE, SELFPAY ==
[2023-01-12] VITALS (12 sets, daily range): BP systolic 86–111; BP diastolic 42–64; PULSE 63–81; RESP 14–27; TEMP 36.7; O2SAT 93–99
--- NOTE | ~2023-01-12 | CT_ITS ---
EXAMINATION: CT cervical spine wo con DATE: 01/12/2023 11:22 INDICATION: Syncope. TECHNIQUE: Computed tomography (CT) of the cervical spine was performed without intravenous contrast. Automated exposure control and iterative reconstruction technique were employed. The dose-length pro duct was 453.19 mGy-cm. COMPARISON: CTA neck 02/26/2009 FINDINGS: There is calcified plaque in proximal right internal carotid artery. There are surgical cli ps around proximal left internal carotid artery. There is worsened chronic pleural thickening at righ t lung apex. There is 4 degrees levocurvature of cervicothoracic spine. Vertebral body heights are no rmal. There is severely decreased disc height at C3-C4, C5-C6, and C6-C7. The following disc levels a re specifically discussed: C2-C3: There is no uncovertebral joint osteoarthritis. There is mild right and severe left facet join t osteoarthritis. There is mild left neural foraminal stenosis. There is no central canal stenosis. C3-C4: There is severe bilateral uncovertebral joint osteoarthritis. There is severe bilateral facet joint osteoarthritis. There is mild bilateral neural foraminal stenosis. There is mild central canal stenosis. C4-C5: There is mild bilateral uncovertebral joint osteoarthritis. There is mild right and severe lef t facet joint osteoarthritis. There is no neural foraminal stenosis. There is no central canal stenos is. C5-C6: There is severe bilateral uncovertebral joint osteoarthritis. There is moderate bilateral face t joint osteoarthritis. There is mild bilateral neural foraminal stenosis. There is mild central soham l stenosis. C6-C7: There is severe bilateral uncovertebral joint osteoarthritis. There is moderate bilateral face t joint osteoarthritis. There is mild bilateral neural foraminal stenosis. There is mild central soham l stenosis. C7-T1: There is no uncovertebral joint osteoarthritis. There is severe right and moderate left facet joint osteoarthritis. There is mild right neural foraminal stenosis. There is no central canal stenos is. IMPRESSION: 1. No fracture. 2. Severe cervical spondylosis. Reviewed, dictated and finalized at location E.
--- NOTE | ~2023-01-12 | XR_ITS ---
EXAMINATION: XR chest 1V portable INDICATION: Transient alteration of awareness TECHNIQUE: Portable AP chest at 1128 hours COMPARISON: 01/09/2023 FINDINGS: There are small stable pleural effusions. Bibasilar airspace opacities persist without fletcher ge. There are minimal interstitial opacities. The cardiomediastinal silhouette is stable. No pneumoth orax is identified. IMPRESSION: 1. Small, stable pleural effusions. 2. Bibasilar airspace opacities, consistent with atelectasis versus pneumonia. 3. Mild pulmonary edema. Reviewed, dictated and finalized at location A.
--- NOTE | ~2023-01-12 | CT_ITS ---
EXAMINATION: CT brain wo con DATE: 01/12/2023 11:21 INDICATION: Syncope. TECHNIQUE: Computed tomography (CT) of the head was performed without intravenous contrast. The mA wa s adjusted according to patient size. Iterative reconstruction technique was employed. The dose-lengt h product was 605.33 mGy-cm. COMPARISON: CTA neck 02/26/2009 FINDINGS: There are scattered areas of low attenuation in the cerebral white matter, which is within normal limits for the patient's age. There is no acute infarction or abnormal intracranial mass lesio n. There is a small volume of acute hematoma in left lateral ventricle. The ventricles are normal in size. There is dependent fluid in right maxillary sinus. There is thickening and sclerosis of the wal ls of right maxillary sinus, consistent with chronic sinusitis. The mastoid air cells are normal. The re are likely changes of right ocular lens replacement surgery. IMPRESSION: 1. Small volume of acute hematoma in left lateral ventricle. 2. Chronic sinusitis. Reviewed, dictated and finalized at location E.
--- NOTE | 2023-01-12 11:03 | ECG_ITS ---
Measurements Intervals [place] Rate: 66 P: 53 MO: 188 QRS: 74 QRSD: 103 T: -84 QT: 472 QTc: 495 Interpretive Statements SINUS RHYTHM INCOMPLETE RIGHT BUNDLE BRANCH BLOCK ST-T WAVE ABNORMALITY IN ANTERIOR LEADS- CONSIDER ISCHEMIA BASELINE WANDER- V4-V6 ABNORMAL ECG COMPARED TO ECG 01/10/2023 13:36:11 SINUS RHYTHM NOW PRESENT Electronically Signed On 01-12-2023 11:23:15 CDT by Sivakumar Alvarez D.O.
[2023-01-12 11:36] LABS: Glucose Point of Care 264 mg/dl (65-105)
[2023-01-12 11:40] LABS: Hematocrit 33.8 % (42.0-52.0); Hemoglobin 9.8 g/dL (14.0-18.0); Mean Corpuscular Hemoglobin 26.2 pg (26-34); Mean Corpuscular Volume 90.4 fl (80-100); Platelet Count Result 209 k/mm3 (150-375); Red Blood Count 3.74 M/mm3 (4.6-6.20); Red Cell Distribution Width 18.7 % (11.5-14.5); White Blood Count 17.3 K/mm3 (4.5-10.0)
[2023-01-12 11:52] LABS: Alanine Aminotransferase 55 U/L (6-50); Albumin Level 3.2 g/dL (3.5-5.1); Alkaline Phosphatase 123 U/L (38-126); Anion Gap 8 mmol/L (8-16); Aspartate Amino Transferase 70 U/L (17-59); Bilirubin,Total 1.1 mg/dL (0.2-1.3); Blood Urea Nitrogen 36 mg/dL (9-20); Calcium 8.5 mg/dL (8.4-10.2); Carbon Dioxide 30 mmol/L (22-30); Chloride 95 mmol/L (98-107); Estimated CRCL calculation 28 ml/min; Estimated Glomerular Filt Rate 32; Glucose 263 mg/dL (65-110); Lipase 36 U/L (23-300); Potassium 3.4 mmol/L (3.4-5.0); Sodium 133 mmol/L (137-145)
[2023-01-12 11:54] LABS: INR 2.9; Prothrombin Time 33.1 Seconds (11.1-14.7)
[2023-01-12 11:55] LABS: Partial Thromboplastin Time 84.7 SECONDS (22.3-36.8)
[2023-01-12] MEDS: SODIUM CHLORIDE 0.9% IV 1,000 ML 999 ML IV CONT (12:03)
[2023-01-12 12:07] LABS: Band Neutrophils Percent 13 % (0-6); Lymphocytes Absolute Manual 0.86 K/mm3 (1.1-4.5); Monocytes Absolute Manual 0.51 K/mm3 (0.1-0.90); Monocytes Percent Manual 3 % (3-9); NT Pro B Type Natriuretic Pept 7470 pg/mL (19.9-100); Neutrophils Absolute Manual 15.91 K/mm3 (1.3-6.7); Neutrophils Percent Manual 79 % (46-73); Platelet Estimate Adequate (Adequate); Total Cells Counted 100; Troponin I 0.052 ng/mL (0.000-0.034)
[2023-01-12 12:08] LABS: Anisocytosis 1+ (NORMAL); Burr Cells 1+ (NORMAL); Poikilocytosis 1+ (NORMAL); Polychromasia 1+ (NORMAL); Schistocytes None Seen (NORMAL)
[2023-01-12] MEDS: PHENYLEPHRINE 1,000 MCG/10 ML SYRINGE 100 MCG IV PUSH (12:48)
--- NOTE | 2023-01-12 13:00 | ED.GENADULT ---
HPI - General Adult General Chief complaint: Shortness of Breath/Dyspnea Stated complaint: Code Blue Time Seen by Provider: 01/12/23 11:04 Source: family Mode of arrival: other (strecher) Limitations: no limitations History of Present Illness HPI narrative: 77-year-old with a history of A-fib on Pradaxa, CKD, CAD was brought in from [facility] with a complaint of syncopal episode. Patient was on his way to the rewriter office was found flat in the [facility]. CODE BANDAR was called and upon my arrival patient was alert but slow to respond. Patient was later transferred to the ER for further evaluation. Upon chart review patient was admitted 2 days ago for A-fib with RVR and was discharged home yesterday. Patient presently denies having any headache, chest pain or shortness of breath. Onset (ago): minute(s) (10) Location: head Related Data Home Medications Medication Instructions Recorded Confirmed dabigatran etexilate 150 mg 150 mg PO BID 02/05/19 01/09/23 capsule (Pradaxa) nitroglycerin 0.4 mg sublingual 0.4 mg sublingual Q5M PRN Chest 02/05/19 01/09/23 tablet (Nitrostat) Pain cholecalciferol (vitamin D3) 50 50 mcg PO DAILY 07/12/19 01/09/23 mcg (2,000 unit) capsule coenzyme Q10 400 mg capsule (Co 400 mg PO DAILY 07/12/19 01/09/23 Q-10) multivitamin with minerals (Men's 1 tablet PO DAILY 07/12/19 01/09/23 One Daily tablet) ezetimibe 10 mg tablet 10 mg PO DAILY 12/02/19 01/09/23 metoprolol tartrate 100 mg tablet 200 mg PO Q12H 12/02/19 01/09/23 rosuvastatin 40 mg tablet 40 mg PO DAILY 12/02/19 01/09/23 garlic 3 mg capsule 3 mg PO DAILY 05/12/20 01/09/23 indapamide 2.5 mg tablet 2.5 mg PO DAILY 01/09/23 01/09/23 Allergies Allergy/AdvReac Type Severity Reaction Status Date / Time No Known Allergies Allergy NONE Verified 01/12/23 11:24 Review of Systems Review of Systems: All systems reviewed & are unremarkable except as noted in HPI and below Constitutional: Constitutional: Reports no additional constitutional complaints Eyes: Eyes: Reports no additional eye complaints ENT: Reports system reviewed and no additional complaints, except as documented Cardiovascular: Cardiovascular: Reports no additional cardiovascular complaints Respiratory: Respiratory: Reports no additional respiratory complaints Gastrointestinal: Gastrointestinal: Reports no additional gastrointestinal complaints Musculoskeletal: Musculoskeletal: Reports no additional musculoskeletal complaints Neurologic: Reports system reviewed and no additional complaints, except as documented [facility] Past Medical History Medical History Carotid artery disease Chronic anticoagulation Chronic kidney disease, stage 3 Coronary artery disease Hyperlipidemia Paroxysmal atrial fibrillation Type 2 diabetes mellitus Surgical History Surgical History History of cardiac catheterization (2002) History of carotid endarterectomy (05/15/09) History of heart artery stent History of total hip replacement Hx of right cataract extraction Family History Family History Father Cerebrovascular accident Carcinoma of colon Sibling Family history of malignant neoplasm of breast in first degree relative Mother Family history of heart disease in male family member before age 55 Family history of cardiovascular disease Other Diabetes mellitus Hypertension Social History Social History Social History: Surrogate medical decision maker: Razia Petit, niece. Code status: Full code. Smoking status: Never smoker Second hand tobacco smoke exposure: No Alcohol intake: never Substance use: never Substance use type: does not use Lack of Transportation: No Lack of Food: Never True Current Housing: I Have Housing Concerned A
== END 2023-01-12 13:04 | disposition short-term general hospital (02) ==
LOC: ANHED 11:39
PROVIDERS: Emergency Provider Family Medicine; PCP Family Medicine
DX: I61.5 Nontraumatic intracerebral hemorrhage, intraventricular (principal); R55 Syncope and collapse; I48.0 Paroxysmal atrial fibrillation; I25.10 Atherosclerotic heart disease of native coronary artery without angina pectoris; E11.22 Type 2 diabetes mellitus with diabetic chronic kidney disease; N18.30 Chronic kidney disease, stage 3 unspecified; E78.5 Hyperlipidemia, unspecified; Z79.02 Long term (current) use of antithrombotics/antiplatelets; Z79.84 Long term (current) use of oral hypoglycemic drugs; I45.10 Unspecified right bundle-branch block; R94.31 Abnormal electrocardiogram [ECG] [EKG]; J32.9 Chronic sinusitis, unspecified; M47.812 Spondylosis without myelopathy or radiculopathy, cervical region; R91.8 Other nonspecific abnormal finding of lung field; J81.1 Chronic pulmonary edema
CPT/HCPCS: 36415; 70450; 71045; 72125; 80053; 82948; 83690; 83880; 84484; 85025; 85610; 85730; 92950; 93005; 96365; 96375; 99291; J2371; J7030; J7168

== ENCOUNTER 2023-02-17 08:47 | Inpatient (IN) | payer MEDICARE, SELFPAY ==
[2023-02-17] VITALS (35 sets, daily range): BP systolic 94–115; BP diastolic 47–93; PULSE 57–63; RESP 12–20; TEMP 36.4; O2SAT 89–100; BMI 33.7
--- NOTE | ~2023-02-17 | US_ITS ---
EXAMINATION: US renal BI DATE: 02/19/2023 12:34 INDICATION: elevated creatinine TECHNIQUE: Multiple grayscale and Doppler ultrasound images of the kidneys were obtained. COMPARISON: None. FINDINGS: The right kidney measures 12.7 x 5.5 x 5.9 cm. The left kidney measures 10.4 x 4.4 x 5.1 cm. The kidn eys demonstrate normal parenchymal echogenicity. Cortical thinning on the left. Simple appearing midp ole cyst. There is no hydronephrosis. The bladder is decompressed by Le catheter. IMPRESSION: Left renal atrophy, otherwise unremarkable renal sonogram findings. Reviewed, dictated and finalized at location K. CAPTAIN
--- NOTE | ~2023-02-17 | CT_ITS ---
CT head without contrast Indication: Encephalopathy COMPARISON: 02/27/2023 Technique: Serial scans were obtained through the brain without the administration of contrast. Dose reduction technique was used on this scan by utilizing automated exposure control and iterative recon struction technique. The dose-length product (DLP) was 681.00 mGy-cm. Findings: There is no evidence of intracranial hemorrhage, mass lesion, or acute infarct. The ventri cles and subarachnoid spaces are dilated, consistent with mild atrophy. Low attenuation regions are seen within the periventricular white matter bilaterally, likely representing changes from chronic mi crovascular ischemic disease. There is no evidence of edema, mass effect or midline shift. The visu alized paranasal sinuses and mastoid air cells are clear. Impression: No intracranial hemorrhage, mass, or acute infarct. Atrophy and chronic white matter changes, as above. Reviewed, dictated and finalized at [facility]. WRAPPER Impression: No intracranial hemorrhage, mass, or acute infarct. Atrophy and chronic white matter changes, as above.
--- NOTE | ~2023-02-17 | XR_ITS ---
EXAMINATION: XR chest ET placement INDICATION: Respiratory failure TECHNIQUE: Portable AP chest at 0813 hours COMPARISON: 0152 hours FINDINGS: Endotracheal tube has been inserted which ends 4.5 cm above the alex. The nasogastric tub e is followed as far as the stomach. Its tip is beyond the inferior margin of the radiograph. A right internal jugular central venous catheter ends with its tip in the proximal superior vena cava. There are small pleural effusions. There are is subsegmental atelectasis in the right midlung zone. There are diffuse interstitial and airspace opacities with more focal consolidation seen in the lung bases. The cardiomediastinal silhouette is stable. IMPRESSION: 1. Endotracheal tube ending approximately 4.5 cm above the alex. 2. Nasogastric tube insertion. 3. Diffuse lung disease, consistent with pulmonary edema versus pneumonia 4. Small pleural effusions. 5. Bibasilar airspace opacities, likely atelectasis. Reviewed, dictated and finalized at location B. HEMICAL DEVELOPMENT ENGINEER
--- NOTE | ~2023-02-17 | CT_ITS ---
EXAMINATION: CT abdomen pelvis wo con DATE: 02/18/2023 10:49 INDICATION: Urinary retention TECHNIQUE: Computed tomography (CT) of the abdomen and pelvis was performed without intravenous contr ast. The dose-length product (DLP) was 1510.43 mGy-cm. Automated exposure control and iterative recon struction technique were employed. COMPARISON: None FINDINGS: There are small pleural effusions. There is mild atelectasis of the visualized lung bases. Cardiomegaly is noted. Punctate calcifications in an otherwise normal spleen likely represent healed granulomatous disease. The liver, pancreas, gallbladder, and left adrenal gland are normal. There is a 12 mm low-attenuation lesion of the right adrenal gland, consistent with an adenoma. There is a 1.5 cm hemorrhagic cyst of the left kidney. Simple cysts of the kidneys measure up to 1.5 cm on the left . No stones are identified in the kidneys, ureters, or bladder. No hydronephrosis or hydroureter. The bladder is decompressed by Le catheter. There is circumferential wall thickening of the urinary b ladder. There is calcified atherosclerosis of the aorta and many of the other arteries. No pathologic ally enlarged abdominal or pelvic lymph nodes are identified. Colonic diverticulosis is present witho ut evidence of diverticulitis. No free intraperitoneal gas or evidence of bowel obstruction. Diffuse anasarca is noted. There is a small volume of ascites. The appendix is normal. There is moderate lumb ar spondylosis. There are changes of right hip arthroplasty. IMPRESSION: 1. Circumferential wall thickening of the urinary bladder which could reflect cystitis. 2. Diffuse anasarca. 3. Small pleural effusions with associated atelectasis in the visualized lung bases. Reviewed, dictated and finalized at location F. BLANK GAUGER IMPRESSION: 1. Circumferential wall thickening of the urinary bladder which could reflect c ystitis. 2. Diffuse anasarca. 3. Small pleural effusions with associated atelectasis in the visualized lung b ases.
--- NOTE | ~2023-02-17 | XR_ITS ---
XR chest 1V portable 02/17/2023 09:17 Indication: Shortness of breath and weakness Procedure: AP portable chest Comparison: Comparison to multiple prior studies sequentially, with oldest reviewed study dated 07/2021. Findings: Diffuse bilateral airspace disease which may represent edema or pneumonia. Small pleural ef fusions. No pneumothorax. Cardiomegaly. Impression: 1: Diffuse bilateral airspace disease is unchanged, edema versus pneumonia. 2: Small pleural effusions. Reviewed, dictated and finalized at location B. FORCE SPECIALIST Impression: 1: Diffuse bilateral airspace disease is unchanged, edema versus pneumonia. 2: Small pleural effusions.
--- NOTE | ~2023-02-17 | US_ITS ---
EXAMINATION: US abdomen limited DATE: 02/23/2023 08:18 INDICATION: Hepatitis. TECHNIQUE: Multiple grayscale and Doppler ultrasound images of the abdomen were obtained. COMPARISON: CT abdomen and pelvis 02/18/2023 FINDINGS: There is a 9 mm cyst in the pancreas. The liver is normal without focal lesion. There is an tegrade flow in main portal vein. The gallbladder is normal in size. No gallstones or gallbladder wal l thickening. There is no sonographic Calloway sign. The common duct is normal and measures 6 mm. IMPRESSION: 1. 9 mm pancreatic cyst. The differential diagnosis includes pseudocyst, intraductal papillary mucino us neoplasm (IPMN), mucinous cystic neoplasm (MCN), serous cystadenoma, and neuroendocrine tumor. Con ent physician abdomen MRI without and with contrast in 2 years. Reviewed, dictated and finalized at location A. LITIES COORDINATOR IMPRESSION: 1. 9 mm pancreatic cyst. The differential diagnosis includes pseudocyst, intrad uctal papillary mucinous neoplasm (IPMN), mucinous cystic neoplasm (MCN), serou s cystadenoma, and neuroendocrine tumor. Consider abdomen MRI without and with contrast in 2 years.
--- NOTE | ~2023-02-17 | XR_ITS ---
EXAMINATION: XR chest 1V portable INDICATION: Shortness of breath TECHNIQUE: Portable AP chest at 1321 hours COMPARISON: 02/20/2023 FINDINGS: A moderate interstitial pattern persists but has improved. There are small pleural effusion s, right greater than left. There is no pneumothorax. The cardiomediastinal silhouette is stable. The re is enlargement of the main and central pulmonary arteries, consistent with pulmonary hypertension. IMPRESSION: 1. Diffuse lung disease with interval improvement, consistent with pneumonia and/or pulmonary edema. 2. Small right pleural effusion. Reviewed, dictated and finalized at location B. CIATE MARKETING MANAGER IMPRESSION: 1. Diffuse lung disease with interval improvement, consistent with pneumonia an d/or pulmonary edema. 2. Small right pleural effusion.
--- NOTE | ~2023-02-17 | CT_ITS ---
Clinical Indication: Septic shock CT Scan of the Chest, Abdomen, and Pelvis without Contrast: Technique: Contiguous sections were acquired throughout the chest, abdomen, and pelvis without IV con trast administration. Dose reduction technique was used on this scan by utilizing automated exposure control and iterative reconstruction technique. The dose-length product (DLP) was 1743.17 mGy-cm. COMPARISON: 02/18/2023 Findings: There is no evidence of any significant mediastinal, hilar or axillary lymphadenopathy. There are ath erosclerotic ossifications of the aorta and coronary arteries. Endotracheal tube and NG tube are in p lace. No pericardial effusion. There is moderate to large left pleural effusion, with extensive left lower lobe atelectasis. There i s mild patchy groundglass opacity in the aerated left lung. There is a small to moderate right pleura l effusion, possibly partially loculated. There is mild right basilar atelectasis. There is patchy gr oundglass opacity in the right lung. The liver, spleen, pancreas, adrenals and kidneys are within normal limits. Probable gallbladder slud ge. There are atherosclerotic calcifications of the aorta. No lymphadenopathy. No bowel obstruction or bowel wall thickening. There is no evidence to suggest acute appendicitis. Urinary bladder is collapsed around a Le catheter, with possible superimpose wall thickening. Ther e is streak artifact from right hip arthroplasty. No pelvic mass evident. Small to moderate abdominop elvic ascites present. There are diffuse soft tissue anasarca changes. Impression: Moderate to large left pleural effusion, and small to moderate right pleural effusion which may be pa rtially loculated. Mild pulmonary edema and bibasilar atelectatic change. Small to moderate abdominal pelvic ascites and diffuse soft tissue anasarca, nonspecific. Suspected urinary bladder wall thickening despite decompression. Correlate for cystitis. Probable gallbladder sludge. Reviewed, dictated and finalized at location . ATOR BUILDER Impression: Moderate to large left pleural effusion, and small to moderate right pleural ef fusion which may be partially loculated. Mild pulmonary edema and bibasilar atelectatic change. Small to moderate abdominal pelvic ascites and diffuse soft tissue anasarca, no nspecific. Suspected urinary bladder wall thickening despite decompression. Correlate for cystitis. Probable gallbladder sludge.
--- NOTE | ~2023-02-17 | XR_ITS ---
Portable chest x-ray Comparison: 02/17/2023 Clinical History: CHF Findings: Woniy-[id number] right pleural effusion and minimal left pleural effusion are present. Th ere is probable moderate central pulmonary edema pattern. Cardiomediastinal silhouette is stable. Alexi fernie and soft tissues are unremarkable. Impression: [id number]-rm-[id number] right pleural effusion and minimal left pleural effusion with probable moderate zachary tral pulmonary edema pattern. Correlate clinically for pneumonia. Reviewed, dictated and finalized at location . RN CAR ATTENDANT Impression: Lauul-[id number] right pleural effusion and minimal left pleural effusion with probable moderate central pulmonary edema pattern. Correlate clinically for pneumonia.
--- NOTE | ~2023-02-17 | XR_ITS ---
EXAMINATION: XR abdomen gastric tube insert INDICATION: OG placement TECHNIQUE: Portable AP [id number] at 0812 hours COMPARISON: None available FINDINGS: The OG tube is in the stomach. There are small pleural effusions. The bowel gas pattern is nonspecific. IMPRESSION: 1. OG tube in the stomach. Reviewed, dictated and finalized at location B. TRICAL TRANSMISSION ENGINEER IMPRESSION: 1. OG tube in the stomach.
--- NOTE | ~2023-02-17 | XR_ITS ---
Portable chest x-ray Comparison: 02/28/2023 Clinical History: Line placement Findings: Right IJ line is in satisfactory position. There is patchy, hazy bilateral airspace diseas e, with lower lobe and perihilar predominance. Probable small left pleural effusion. Probable discoid right basilar atelectasis. Cardiomediastinal silhouette is stable. Bones and soft tissues are unrem arkable. Impression: Right IJ line in satisfactory position. No pneumothorax. Patchy airspace disease, as above, suggestive of moderate pulmonary edema versus infection. Correlate clinically. Small left pleural effusion. Discoid right basilar atelectasis. Reviewed, dictated and finalized at [facility]. ETL DEVELOPER Impression: Right IJ line in satisfactory position. No pneumothorax. Patchy airspace disease, as above, suggestive of moderate pulmonary edema versu s infection. Correlate clinically. Small left pleural effusion. Discoid right basilar atelectasis.
--- NOTE | ~2023-02-17 | CT_ITS ---
EXAMINATION: CT brain wo con DATE: 02/27/2023 23:26 INDICATION: Lethargy. TECHNIQUE: Computed tomography (CT) of the head was performed without intravenous contrast. The dose- length product was 681.00 mGy-cm. Automated exposure control and iterative reconstruction technique w ere employed. COMPARISON: CT dated 01/12/2023 FINDINGS: Generalized atrophy. There are scattered mild periventricular and subcortical white matter changes, most likely related to small vessel ischemic disease (microangiopathy). There is intracrania l atherosclerosis. No acute infarction, hemorrhage, mass or mass effect. Paranasal sinuses and mastoi ds are pneumatized. No depressed skull fractures. Resolution of intraventricular hemorrhage on the le ft. IMPRESSION: 1. No acute intracranial abnormality. Reviewed, dictated and finalized at location A. SHIELD REPAIR TECHNICIAN
--- NOTE | ~2023-02-17 | XR_ITS ---
Portable chest x-ray Comparison: 02/27/2023 Clinical History: Hypotension, lethargy Findings: Extensive hazy airspace disease is worsened from prior exam. Probable minimal left pleural effusion. Cardiomediastinal silhouette is stable. Bones and soft tissues are unremarkable. Impression: Worsening hazy bilateral airspace disease. Correlate for worsening pulmonary edema versus infection. Small left pleural effusion. Reviewed, dictated and finalized at [facility]. SUPERVISOR Impression: Worsening hazy bilateral airspace disease. Correlate for worsening pulmonary ed ari versus infection. Small left pleural effusion.
--- NOTE | 2023-02-17 08:51 | ECG_ITS ---
Measurements Intervals [place] Rate: 63 P: 48 TX: 198 QRS: 78 QRSD: 116 T: 240 QT: 482 QTc: 494 Interpretive Statements SINUS RHYTHM INCOMPLETE RIGHT BUNDLE BRANCH BLOCK [90+ ms QRS DURATION, TERMINAL R IN V1/V2, 40+ ms S IN I/aVL/V4/V5/V6] ST DEVIATION AND MODERATE T-WAVE ABNORMALITY, CONSIDER ANTEROLATERAL ISCHEMIA [-0.1+ mV T WAVE IN V3-V6] ABNORMAL ECG COMPARED TO ECG 01/12/2023 11:04:28 NO SIGNIFICANT CHANGES Electronically Signed On 02-17-2023 10:45:50 MAILROOM ASSISTANT by David Blackmon M.D.
[2023-02-17 08:54] LABS: Glucose Point of Care 237 mg/dl (65-105)
--- NOTE | 2023-02-17 09:12 | ED.GENADULT ---
HPI - General Adult General Chief complaint: Weakness Stated complaint: weakness History of Present Illness HPI narrative: 77-year-old male presenting the emergency department for evaluation of increased generalized weakness. Patient reports that over the course of the last month he has been having worsening weakness. Patient reports that he did have ceased a recent cardiac arrest and ultimately got transferred to [facility]. Patient reports he was admitted to [facility] for approximately 1 month. Patient states he is not at home and does have multiple caregivers. Patient states that he has had worsening lower extremity swelling and increased generalized weakness. Related Data Home Medications Medication Instructions Recorded Confirmed dabigatran etexilate 150 mg 150 mg PO BID 02/05/19 02/17/23 capsule (Pradaxa) multivitamin with minerals (Men's 1 tablet PO DAILY 07/12/19 02/17/23 One Daily tablet) rosuvastatin 40 mg tablet 40 mg PO DAILY 02/17/23 02/17/23 torsemide 10 mg tablet 10 mg PO DAILY 02/17/23 02/17/23 Allergies Allergy/AdvReac Type Severity Reaction Status Date / Time No Known Allergies Allergy NONE Verified 02/17/23 08:56 Review of Systems Review of Systems: All systems reviewed & are unremarkable except as noted in HPI and below PMFSH Past Medical History Medical History Carotid artery disease Chronic anticoagulation Chronic kidney disease, stage 3 Coronary artery disease Hyperlipidemia Paroxysmal atrial fibrillation Type 2 diabetes mellitus Surgical History Surgical History History of cardiac catheterization (2002) History of carotid endarterectomy (05/15/09) History of heart artery stent History of total hip replacement Hx of right cataract extraction Family History Family History Father Cerebrovascular accident Carcinoma of colon Sibling Family history of malignant neoplasm of breast in first degree relative Mother Family history of heart disease in male family member before age 55 Family history of cardiovascular disease Other Diabetes mellitus Hypertension Social History Social History Social History: Surrogate medical decision maker: Razia Petit, niece. Code status: Full code. 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 Spiritual care concerns: No Agree to blood products: Yes Exam Narrative: APPEARANCE: Well appearing, no pain, no distress, well-nourished. HEAD: normocephalic, atraumatic. EYES: PERRLA/EOMI, conjunctivae clear. NOSE: Normal no drainage EARS:TMS clear with good light reflex. THROAT: Pharynx clear, no exudate. NECK: Supple. No adenopathy, no masses. RESPIRATORY: Airway patent, respirations nonlabored. Clear to auscultation bilaterally, no rales, rhonchi, wheezing. CARDIOVASCULAR: Regular rate and rhythm without murmurs rubs or gallops. ABDOMINAL: Soft, nontender, nondistended, normal bowel sounds MUSCULOSKELETAL: extensive lower and upper extremity edema NEURO: Alert. Cranial nerves II through XII intact. Good gait. Good coordination SKIN: Warm, dry. Normal Color Course Course Emergency Course: 77-year-old male lavonne
[2023-02-17 09:25] LABS: Basophils Percent Auto 0.2 % (0.2-1.2); Eosinophils Absolute Auto 0.1 K/mm3 (0-0.3); Eosinophils Percent Auto 0.6 % (0-4.4); Hematocrit 32.5 % (42.0-52.0); Hemoglobin 9.2 g/dL (14.0-18.0); Immature Granulocyte Absolute 0.04 K/mm3 (0.00-0.031); Immature Granulocyte Percent A 0.4 % (0-0.5); Lymphocytes Absolute Auto 0.66 K/mm3 (0.9-3.2); Lymphocytes Percent Auto 6.9 % (18.3-44.2); Mean Corpuscular HGB Conc 28.3 g/dl (32-36); Mean Corpuscular Hemoglobin 25.8 pg (26-34); Mean Corpuscular Volume 91.3 fl (80-100); Mean Platelet Volume 11.4 fl (7.4-10.4); Monocytes Absolute Auto 0.8 K/mm3 (0.1-0.6); Monocytes Percent Auto 8.4 % (2.6-8.5); Neutrophils Absolute Auto 7.9 K/mm3 (1.3-6.7); Neutrophils Percent Auto 83.5 % (45.5-73.1); Nucleated Red Blood Cells Perc 0.4 % (0.0-0.2); Platelet Count Result 193 k/mm3 (150-375); Red Blood Count 3.56 M/mm3 (4.6-6.20); Red Cell Distribution Width 22.4 % (11.5-14.5); White Blood Count 9.5 K/mm3 (4.5-10.0)
[2023-02-17 09:38] LABS: Alanine Aminotransferase 78 U/L (6-50); Alkaline Phosphatase 189 U/L (38-126); Anion Gap 10 mmol/L (8-16); Aspartate Amino Transferase 76 U/L (17-59); Bilirubin,Total 0.8 mg/dL (0.2-1.3); Blood Urea Nitrogen 73 mg/dL (9-20); Calcium 7.4 mg/dL (8.4-10.2); Carbon Dioxide 21 mmol/L (22-30); Chloride 105 mmol/L (98-107); Estimated CRCL calculation 16 ml/min; Estimated Glomerular Filt Rate 14; Glucose 237 mg/dL (65-110); Potassium 4.5 mmol/L (3.4-5.0); Sodium 136 mmol/L (137-145)
[2023-02-17 09:44] LABS: NT Pro B Type Natriuretic Pept 6500 pg/mL (19.9-100)
[2023-02-17 09:56] LABS: Anisocytosis 1+ (NORMAL); Ovalocytes 1+ (NORMAL); Platelet Estimate Adequate (Adequate); Poikilocytosis 2+ (NORMAL)
[2023-02-17 09:57] LABS: Schistocytes None Seen (NORMAL)
[2023-02-17 10:02] LABS: Influenza A QL RT-PCR Negative (Negative); Influenza B QL RT-PCR Negative (Negative); RSV RNA, RT-PCR Negative (Negative); SARS-CoV-2 RNA PCR Negative (Negative)
[2023-02-17 10:02] LABS: Appearance Urine Cloudy (Clear); Bacteria Urine None Seen /hpf; Bilirubin Urine Negative (Negative); Blood Urine Negative (Negative); Color Urine Yellow (Yellow); Glucose Urine UA 3+ mg/dL (Negative); Ketones Urine Negative (Negative); Leukocyte Esterase Ur Negative LEU/UL (Negative); Nitrate Urine Negative (Negative); Protein Urine 2+ mg/dL (Negative); RBC Urine 0-2 /hpf (0-2); Squamous Epithelial Cell Urine Occasional /hpf (Few); WBC Urine 0-5 /hpf
[2023-02-17 10:23] LABS: Add Urine Microscopic? YES
[2023-02-17] MEDS: FUROSEMIDE INJ 40 MG/4 ML VIAL IV PUSH ×2 (11:38→20:10)
[2023-02-17] MEDS: SODIUM CHLORIDE 0.9% IV 500 ML IV CONT (12:06)
--- NOTE | 2023-02-17 14:38 | ADMGEN ---
This patient, Andrei Rao, was admitted to Medical Room [address] [place] [address]. Patient/family oriented to hospital policies and general routines including ID bracelet, bed and alarms, visiting hours, pain management, procedures, bathroom and other care routines, personal items, smoking policy, room service/diet, and visiting hours. Information on how to activate the Rapid Response Team has been discussed. Patient/Family are encouraged to report perceived risks to care and to ask questions if they do not understand what they are told or what they should do.
--- NOTE | 2023-02-17 19:55 | PM.IMHP ---
H&P: HPI History of Present Illness Date/Time: 02/17/23 19:55 Chief Complaint: SOB, BLE Edema, Weakness Narrative: 77 y/o M presented here with weakness, BLE edema, and SOB with PMH of CAD, CKD3, HLD, persistent AFib, DM2 and history of cardiac stent placement. Patient presented to the emergency department this morning, 02/17, for bilateral lower extremity weakness, increased swelling to bilateral lower extremities, and worsening shortness of breath. States the BLE swelling and SOB have been ongoing issues since August when he was taken off of his Lasix. Reports that his lower extremity weakness tends to be worse with increased swelling. However, patient was recently seen in [place] ED on 01/12 after he sustained a syncopal episode while in the hospital on his way to the cardiology office. Patient was transferred to ED for further evaluation and found to have a left-sided intraventricular hemorrhage. Transferred to be [facility] ED. Per chart review, he was hospitalized there from 01/12-01/31 where his bleed was monitored and he was treated for his persistent dysrhythmias. Discharged to [facility] due to deconditioning. Received PT/OT from 01/31-02/08 and discharged home with home health. Since this admission, patient has been experiencing the BLE weakness intermittently. States he was able to do his physical therapy exercises a few days ago. Today, patient was unable to move his lower extremities due to swelling and weakness. States he slid out of his chair onto the floor without trauma. However was unable to get up so presented to the emergency department. He was also found to have urinary retention, last urine output before bed on 02/16 around 630-7 p.m. states he had urge to go this morning but due to immobility was unable to get up to go to the bathroom, then urge dissipated. Patient was bladder scanned in the ED and found to be retaining greater than 603 mLs, Le placed and had 900 mLs of output. No abdominal discomfort throughout. ED Workup revealed a normal WBC, stable anemia, BNP of 6500, and a ELIZABETH in setting of CKD (2.0 -> 4.2). UA did not have findings consistent with a UTI. Patient's CXR was largely unchanged from prior, showed diffuse bilateral airspace disease unchanged and small pleural effusions. Review of Systems Review of Systems: All systems reviewed & are unremarkable except as noted in HPI and below [facility] Past Medical History Medical History (Updated 02/17/23 @ 21:07 by Donna Bobby APRN) Carotid artery disease Chronic anticoagulation Chronic kidney disease, stage 3 Coronary artery disease Hyperlipidemia Intraventricular hemorrhage Resolved, Discovered on 01/12/23 Paroxysmal atrial fibrillation Type 2 diabetes mellitus Surgical History Surgical History History of cardiac catheterization (2002) History of carotid endarterectomy (05/15/09) History of heart artery stent History of total hip replacement Hx of right cataract extraction Family History Family History Father Cerebrovascular accident Carcinoma of colon Sibling Family history of malignant neoplasm of breast in first degree relative Mother Family history of heart disease in male family member before age 55 Family history of cardiovascular disease Other Diabetes mellitus Hypertension Social History Social History Social History: Surrogate medical decision maker: Razia Petit, niece. Code status: Full code. Smoking status: Never smoker Second hand tobacco smoke exposure: No Alcohol intake: former Drinks per week: 0 Substance use: never Substance use type: does not use Lack of Transportation: No Lack of Food: Never True Current Housing: I Have Housing Concerned About Future Housing: No Difficulty Paying Gas/Electric Bills: No Dif
[2023-02-17] MEDS: METOPROLOL TARTRATE 50 MG TAB 200 MG PO (22:22)
[2023-02-18] VITALS (11 sets, daily range): BP systolic 92–95; BP diastolic 46–47; PULSE 59–62; RESP 12–16; TEMP 36.2–36.5; O2SAT 93
--- NOTE | 2023-02-18 | ECHO_ITS ---
Patient Info Name: Andrei Rao Age: 77 years : 1945 Gender: Male Ht: 70 in Wt: 235 lbs BSA: 2.33 m2 HR: 60 bpm BP: 95 / 47 mmHg Heart Rhythm: Sinus Rhythm Technical Quality: Good Exam Date: 02/18/2023 9:31 AM Exam Location: Echo Lab Patient Status: Inpatient Admit Date: 02/17/2023 Staff Ordering Physician: Donna Bobby APRN [employer] Tank Car Unloader: Linnea Bolaños RDCS Attending Provider: Jose Fletcher MD Referring Physician: Kanu SHEPPARD; Exam Type: CA echo doppler color flow Study Info Indications - BLE SWELLING, SOB Complete two-dimensional, color flow and Doppler transthoracic echocardiogram is performed. Summary 1. Complete two-dimensional, color flow and Doppler transthoracic echocardiogram is performed. Recommendations * Normal LV size, moderate LVH; normal LV systolic function, ejection fraction 65-70%. Diastolic dysfunction is present. Moderate RV enlargement with hypokinesis. Systolic and diastolic interventricular septal flattening suggestive of RV pressure and volume overload. Mild biatrial enlargement. Normal mitral valve leaflet structure. Moderate MR. Mild aortic valve calcification, moderate aortic stenosis, calculated FRANSISCO 1.3 cm2. Mild aortic regurgitation. Mild tricuspid regurgitation, moderate pulmonary hypertension, RVSP 55 mmHg. Left Ventricle Left ventricular chamber dimension is normal. Left ventricular systolic function is normal, estimated at 65-70%. There is moderately increased left ventricular wall thickness. The left ventricular diastolic function is abnormal. E/e' 16.7 is abnormal. Right Ventricle Right ventricular chamber dimension is moderately enlarged. Right ventricular systolic function is reduced. Left Atria Left atrial chamber dimension is mildly enlarged. Right Atria Right atrial chamber dimension is mildly enlarged. Aortic Valve There is moderate aortic valve stenosis with a peak velocity of 132 cm/s, mean gradient of 5 mmHg, and aortic valve area of 1.3 cm2. There is mild aortic valve regurgitation. There is mild aortic valve calcification. Pulmonic Valve The pulmonic valve is not well visualized. Mitral Valve The mitral valve has normal leaflets. There is moderate mitral valve regurgitation. Tricuspid Valve The tricuspid valve leaflets are normal. There is mild tricuspid valve regurgitation. Moderate pulmonary hypertension, estimated pulmonary arterial systolic pressure is 55 mmHg. Pericardium/Pleural The pericardium appears normal. Inferior Vena Cava Dilated inferior vena cava with <50% collapse upon inspiration consistent with elevated right atrial pressure, 10 mmHg. Aorta The aortic root size at the sinus of Valsalva is normal. Left Ventricular Outflow Tract Name Value Normal LVOT 2D LVOT Diameter 1.9 cm LVOT Doppler LVOT Peak Gradient 2 mmHg LVOT Mean Gradient 1 mmHg LVOT VTI 17 cm LVOT VTI/AV VTI Ratio 0.5 LVOT Stroke Volume 47 ml LVOT CO 2.7 l/min LVOT CI 1.2 l/min/m2 Pulmonic Valve
[2023-02-18 05:04] LABS: Hematocrit 30.4 % (42.0-52.0); Hemoglobin 8.5 g/dL (14.0-18.0); Mean Corpuscular Hemoglobin 25.2 pg (26-34); Mean Corpuscular Volume 90.2 fl (80-100); Platelet Count Result 178 k/mm3 (150-375); Red Blood Count 3.37 M/mm3 (4.6-6.20); Red Cell Distribution Width 22.1 % (11.5-14.5); White Blood Count 9.3 K/mm3 (4.5-10.0)
[2023-02-18 05:05] LABS: Basophils Percent Auto 0.2 % (0.2-1.2); Eosinophils Absolute Auto 0.1 K/mm3 (0-0.3); Eosinophils Percent Auto 1.4 % (0-4.4); Immature Granulocyte Absolute 0.04 K/mm3 (0.00-0.031); Immature Granulocyte Percent A 0.4 % (0-0.5); Lymphocytes Absolute Auto 0.74 K/mm3 (0.9-3.2); Mean Platelet Volume 11.8 fl (7.4-10.4); Monocytes Absolute Auto 0.6 K/mm3 (0.1-0.6); Monocytes Percent Auto 6.8 % (2.6-8.5); Neutrophils Absolute Auto 7.7 K/mm3 (1.3-6.7); Neutrophils Percent Auto 83.2 % (45.5-73.1); Nucleated Red Blood Cells Perc 0.4 % (0.0-0.2)
[2023-02-18 05:17] LABS: Alanine Aminotransferase 65 U/L (6-50); Albumin Level 2.7 g/dL (3.5-5.1); Alkaline Phosphatase 157 U/L (38-126); Anion Gap 10 mmol/L (8-16); Aspartate Amino Transferase 50 U/L (17-59); Blood Urea Nitrogen 76 mg/dL (9-20); Calcium 7.2 mg/dL (8.4-10.2); Carbon Dioxide 20 mmol/L (22-30); Chloride 104 mmol/L (98-107); Estimated CRCL calculation 15 ml/min; Estimated Glomerular Filt Rate 12; Glucose 219 mg/dL (65-110); Magnesium 2.6 mg/dL (1.6-2.3); Phosphorus 4.5 mg/dL (2.5-4.5); Potassium 3.9 mmol/L (3.4-5.0); Sodium 134 mmol/L (137-145)
[2023-02-18 06:08] LABS: Platelet Estimate Adequate (Adequate)
[2023-02-18 06:09] LABS: Crenated RBC 1+ (NORMAL); Hypochromasia 1+ (NORMAL); Ovalocytes 1+ (NORMAL); Schistocytes None Seen (NORMAL); Tear Drop Cells 1+ (NORMAL)
[2023-02-18 07:18] LABS: Creatine Kinase 38 U/L (55-170)
[2023-02-18 07:57] LABS: Glucose Point of Care 205 mg/dl (65-105)
[2023-02-18] MEDS: THERAPEUTIC MULTIVITAMINS/MINERALS TAB (*BKC) 1 TABLET PO (08:34)
[2023-02-18] MEDS: ROSUVASTATIN 10 MG TABLET 40 MG PO (08:34)
[2023-02-18] MEDS: EMPAGLIFLOZIN 25 MG TABLET PO (08:35)
[2023-02-18] MEDS: EZETIMIBE 10 MG TABLET PO (08:35)
[2023-02-18] MEDS: GABAPENTIN 100 MG CAPSULE 200 MG PO ×3 (08:35→16:53)
[2023-02-18] MEDS: INSULIN ASPART (*BKC) 100 UNITS/ML SUB-Q ×3 (08:35→16:54)
[2023-02-18] MEDS: METOPROLOL TARTRATE 50 MG TAB 200 MG PO ×2 (08:35→20:05)
[2023-02-18] MEDS: FUROSEMIDE INJ 40 MG/4 ML VIAL IV PUSH (08:36)
[2023-02-18] MEDS: DABIGATRAN ETEXILATE 150 MG CAPSULE PO (08:57)
--- NOTE | 2023-02-18 10:51 | PCOTNOTE ---
Attempted OT evaluation; pt. out of the room for testing
--- NOTE | 2023-02-18 11:44 | PM.IMPN ---
Progress Note: A&P Assessment and Plan (1) Acute kidney injury superimposed on CKD: Code(s): N17.9 - Acute kidney failure, unspecified; N18.9 - Chronic kidney disease, unspecified Status: Acute Assessment and Plan: Cloth Bolt Bander 4.2, previously 2.00 on 02/08/23. BUN 73, ECC 16, and GFR 14. Suspect this is secondary to obstructive uropathy, unclear etiology. will obtain non-con abd/pelvis CT. No reported difficulty placing Le, no suprapubic or flank pain. UA: cloudy, 2+ protein, 3+glucose. will consult nephrology for further recs. monitor I&Os, renal function and electrolytes. (2) Weakness of both lower extremities: Code(s): R29.898 - Other symptoms and signs involving the musculoskeletal system Status: Acute Assessment and Plan: has been intermittent/ongoing since d/c from [facility] after admission for IVH, believed to be secondary to deconditioning due to this hospitalization. received rehab services and was discharged home with home health. no focal abnormalities on exam. will consult PT/OT for reevaluation for return to rehab facility. weakness worsened by significant BLE swelling, will gently diurese due to ELIZABETH superimposed on CKD. (3) CHF (congestive heart failure): Code(s): I50.9 - Heart failure, unspecified Status: Acute Assessment and Plan: Per d/c summary from [facility], the Echo done on 01/19 showed EF 45-50%, enlarged RV size, slightly decreased RV function, LAE, GENARO, MAC, MV not well visualized, moderate MR, mid to mod TR, trace to small pericardial effusion. proBNP 15,000, treated with spot dose diuresis with resulting ELIZABETH that resolved with discontinuation of diuresis. requesting echo report from [facility]. due to ELIZABETH from diuresis previously and current ELIZABETH superimposed on CKD, will reduce Lasix to 40 IVP daily v Q12H. hold torsemide until further workup of urinary retention. monitor I&O and daily weights. (4) Paroxysmal atrial fibrillation: Code(s): I48.0 - Paroxysmal atrial fibrillation Status: Acute Assessment and Plan: Experienced persistent AFib RVR during admission at the [facility], current home meds prior to admission were Pradaxa and Metoprolol. Previously on sotalol which was discontinued due to prolonged QT. given IV metoprolol and amiodarone bolus then gtt, transitioned to oral amiodarone which was subsequently discontinued due to elevated LFTs. Metoprolol was uptitrated to 200 mg b.i.d. and pradaxa continued. EKG today (01/18) showed sinus rhythm with incomplete RBBB, ST deviation and moderate T-wave abnormality. no significant changes compared to prior on 01/12/23. continue tele monitoring. (5) Type 2 diabetes mellitus: Qualifiers: Diabetes mellitus interactive media designer insulin use: without interactive media designer use Diabetes mellitus complication status: without complication Qualified Code(s): E11.9 - Type 2 diabetes mellitus without complications Code(s): E11.9 - Type 2 diabetes mellitus without complications Status: Acute Assessment and Plan: Hypoglycemia protocol POC blood glucose ACHS home medications resumed/held - Jardiance continued, glimepiride held due to worsening CKD correct regimen ordered - low dose TIDWM and HS A1C 8.0 on 01/09/23 (6) Cellulitis of lower extremity: Code(s): L03.119 - Cellulitis of unspecified part of limb Status: Acute Assessment and Plan: Cipro 250mg po bid for 7 days Plan Home Meds/Chronic Conditions - zetia, gabapentin, crestor, and multivitamin continued Diet: Renal Dialysis Diet GI Prophylaxis: not currently indicated DVT Prophylaxis: SCDs, Pradaxa continued Lines: pIV Code Status: Full Code Subjective Date/time seen: 02/18/23 11:44 Interval history: Patient was seen during the morning rounds today. No shortness of breath or chest pain. No abdominal pain, nausea, no vomiting. Mood stable. Review of Systems Review of Systems: All systems reviewed & are unremarkable ex
[2023-02-18 11:51] LABS: Glucose Point of Care 264 mg/dl (65-105)
--- NOTE | 2023-02-18 13:06 | PCPTNOTE ---
Pt refused evaluation. Educated on purpose and benefit of participating in therapy, pt cont to decline stating may try tomorrow.
--- NOTE | 2023-02-18 13:19 | PCOTNOTE ---
Attempted OT evaluation; pt. refused stating he is unable to move his legs. Requests to try tomorrow.
--- NOTE | 2023-02-18 13:26 | PM.CNNEP ---
Assessment and Plan Assessment and plan (1) Chronic kidney disease, stage 3b: Code(s): N18.32 - Chronic kidney disease, stage 3b Status: Acute Assessment and Plan: The patient has chronic kidney disease. This is most likely due to hypertension and diabetes. He never did have the evaluation for this. Will go ahead in order this. Most likely this is due to the diabetes and the high blood pressure. There are other causes such as glomerulonephritis, interstitial nephritis, infiltrative diseases, and inflammatory diseases. We will check for these. (2) ELIZABETH (acute kidney injury): Code(s): N17.9 - Acute kidney failure, unspecified Status: Acute Assessment and Plan: The patient has acute kidney injury. BUN and creatinine are much higher. He recently had a creatinine of 2.0 on 02/08. Most likely the cause of this acute kidney injury is prostatic obstruction. He has a Le catheter and is making much more urine. His creatinine did rise today but hopefully will start to come down tomorrow. Will check a CPK, urine electrolytes, and a renal ultrasound to complete the evaluation, especially since his creatinine mino and did not yet start falling.. (3) Paroxysmal atrial fibrillation: Code(s): I48.0 - Paroxysmal atrial fibrillation Status: Acute Assessment and Plan: The patient has paroxysmal atrial fibrillation. He is in sinus rhythm now. (4) Anemia: Code(s): D64.9 - Anemia, unspecified Status: Acute Assessment and Plan: Hemoglobin is low. Will check iron levels B12 folate and reticulocyte count. (5) CHF (congestive heart failure): Code(s): I50.9 - Heart failure, unspecified Status: Acute Assessment and Plan: The patient has congestive heart failure. It is not clear about the current anatomy of the heart but it seems that this might be mostly right-sided based on an echocardiogram done in 2020. He is making a lot of urine now so hopefully his swelling will improve since the catheter was placed. (6) Essential (primary) hypertension: Code(s): I10 - Essential (primary) hypertension Status: Acute Assessment and Plan: His blood pressure is a little bit soft. He is no longer on antihypertensives right now he is on metoprolol currently mostly for his heart and for rate control. (7) Type 2 diabetes mellitus: Qualifiers: Diabetes mellitus watermelon inspector insulin use: without shelter use Diabetes mellitus complication status: without complication Qualified Code(s): E11.9 - Type 2 diabetes mellitus without complications Code(s): E11.9 - Type 2 diabetes mellitus without complications Status: Acute Assessment and Plan: The patient has diabetes. Hospitalist to manage this. History of Present Illness Reason for Consult Consult date: 02/18/23 Chief Complaint Chief complaint: ELIZABETH on CKD/Obstructive Uropathy/Edema History of Present Illness Narrative: Andrei is a very pleasant 77-year-old gentleman who has multiple medical problems including chronic kidney disease stage 3, coronary artery disease, paroxysmal atrial fibrillation, diabetes, recent intraventricular hemorrhage, hyperlipidemia, and carotid artery disease. The patient says he has chronic swelling. This was managed pretty well last year and for the 1st half of this year. Then in August, it was noted that his creatinine mino from about 1.4 to about 2.3. This is when he was on ?7 diuretic pills ?. These were all discontinued. Then sometime in September the patient developed swelling and so he called Dr. Patel who started medicines back gradually. At it was 1 a week then 3 week then every day. The escalation and diuretics happened sometime in September through November. Records are unavailable. Once he was on every day his swelling seemed to be controlled better. At the end of December he was seen in my office for his elevated creatinine but he
[2023-02-18 16:06] LABS: Appearance Urine Cloudy (Clear); Bacteria Urine None Seen /hpf; Bilirubin Urine Negative (Negative); Blood Urine 2+ (Negative); Color Urine Yellow (Yellow); Glucose Urine UA 3+ mg/dL (Negative); Hyaline Casts Urine Present /lpf; Ketones Urine Negative (Negative); Leukocyte Esterase Ur Trace LEU/UL (NEGATIVE); Nitrate Urine Negative (Negative); Protein Urine 2+ mg/dL (Negative); RBC Urine 21-50 /hpf (0-2); Specific Grav Ur 1.013 (1.001-1.035); Squamous Epithelial Cell Urine Few /hpf (Few); pH Urine 5.5 (5.0-9.0)
[2023-02-18 16:07] LABS: Add Urine Microscopic? YES
[2023-02-18 16:16] LABS: Creatinine Urine 30.2 mg/dL; Total Protein Urine Random 71 mg/dL; Ur Ttl Prot Creatinine Ratio 2.35 mg/mg (0-0.20); Urea Random Urine 331 MG/DL
[2023-02-18 16:28] LABS: Sodium Urine Random 46 meq/L
[2023-02-18 16:43] LABS: Glucose Point of Care 244 mg/dl (65-105)
[2023-02-18 20:05] LABS: Glucose Point of Care 198 mg/dl (65-105)
[2023-02-18] MEDS: CIPROFLOXACIN 250 MG TABLET PO (20:05)
[2023-02-18 21:26] LABS: Immature Reticulocyte Fraction 36.3 % (3.0-15.9); Reticulocyte Hemoglobin Conten 18.3 pg (28.2-35.7); Reticulocytes Absolute 0.08 M/mm3 (0.02-0.1)
[2023-02-18 21:38] LABS: Creatine Kinase 32 U/L (55-170)
[2023-02-18 21:45] LABS: Complement C3 98 mg/dL (88-165)
[2023-02-18 21:49] LABS: Erythrocyte Sedimentation Rate 57 mm/hr (0-20)
[2023-02-18 22:44] LABS: Folic Acid 11.9 ng/mL (2.76->20)
[2023-02-19] VITALS (11 sets, daily range): BP systolic 97–102; BP diastolic 45–53; PULSE 59–100; RESP 16–20; TEMP 36.6–36.9; O2SAT 92–96; BMI 10.0
[2023-02-19 00:01] LABS: Iron 40 ug/dL (49-181)
[2023-02-19 00:08] LABS: Percent Iron Saturation 12 % (20-50)
[2023-02-19 06:05] LABS: Hematocrit 32.2 % (42.0-52.0); Hemoglobin 9.1 g/dL (14.0-18.0); Mean Corpuscular HGB Conc 28.3 g/dl (32-36); Mean Corpuscular Hemoglobin 25.6 pg (26-34); Mean Corpuscular Volume 90.4 fl (80-100); Platelet Count Result 176 k/mm3 (150-375); Red Blood Count 3.56 M/mm3 (4.6-6.20); Red Cell Distribution Width 21.8 % (11.5-14.5); White Blood Count 8.8 K/mm3 (4.5-10.0)
[2023-02-19 06:23] LABS: Alanine Aminotransferase 64 U/L (6-50); Albumin Level 2.7 g/dL (3.5-5.1); Alkaline Phosphatase 157 U/L (38-126); Anion Gap 9 mmol/L (8-16); Aspartate Amino Transferase 70 U/L (17-59); Bilirubin,Total 0.9 mg/dL (0.2-1.3); Blood Urea Nitrogen 77 mg/dL (9-20); Calcium 7.5 mg/dL (8.4-10.2); Carbon Dioxide 18 mmol/L (22-30); Chloride 105 mmol/L (98-107); Estimated CRCL calculation 15 ml/min; Estimated Glomerular Filt Rate 13; Glucose 189 mg/dL (65-110); Phosphorus 5.1 mg/dL (2.5-4.5); Sodium 132 mmol/L (137-145)
[2023-02-19 08:21] LABS: Glucose Point of Care 228 mg/dl (65-105)
[2023-02-19] MEDS: ROSUVASTATIN 10 MG TABLET 40 MG PO (08:37)
[2023-02-19] MEDS: GABAPENTIN 100 MG CAPSULE 200 MG PO ×3 (08:37→16:53)
[2023-02-19] MEDS: EMPAGLIFLOZIN 25 MG TABLET PO (08:37)
[2023-02-19] MEDS: FUROSEMIDE INJ 40 MG/4 ML VIAL IV PUSH (08:37)
[2023-02-19] MEDS: METOPROLOL TARTRATE 50 MG TAB 200 MG PO ×2 (08:37→20:05)
[2023-02-19] MEDS: INSULIN ASPART (*BKC) 100 UNITS/ML SUB-Q ×4 (08:37→20:02)
[2023-02-19] MEDS: EZETIMIBE 10 MG TABLET PO (08:38)
[2023-02-19] MEDS: THERAPEUTIC MULTIVITAMINS/MINERALS TAB (*BKC) 1 TABLET PO (08:38)
--- NOTE | 2023-02-19 09:25 | PM.IMPN ---
Progress Note: A&P Assessment and Plan (1) Acute kidney injury superimposed on CKD: Code(s): N17.9 - Acute kidney failure, unspecified; N18.9 - Chronic kidney disease, unspecified Status: Acute Assessment and Plan: [employer] Supervisor 4.5 today, previously 2.00 on 02/08/23. BUN 73, ECC 16, and GFR 14. Suspect this is secondary to obstructive uropathy, unclear etiology. will obtain non-con abd/pelvis CT. No reported difficulty placing Le, no suprapubic or flank pain. UA: cloudy, 2+ protein, 3+glucose. Nephrology consult noted. Will continue current treatment. (2) Weakness of both lower extremities: Code(s): R29.898 - Other symptoms and signs involving the musculoskeletal system Status: Acute Assessment and Plan: Feeling better today. moving extremities. has been intermittent/ongoing since d/c from [facility] after admission for IVH, believed to be secondary to deconditioning due to this hospitalization. received rehab services and was discharged home with home health. no focal abnormalities on exam. will consult PT/OT for reevaluation for return to rehab facility. weakness worsened by significant BLE swelling, will gently diurese due to ELIZABETH superimposed on CKD. (3) CHF (congestive heart failure): Code(s): I50.9 - Heart failure, unspecified Status: Acute Assessment and Plan: Per d/c summary from [facility], the Echo done on 01/19 showed EF 45-50%, enlarged RV size, slightly decreased RV function, LAE, GENARO, MAC, MV not well visualized, moderate MR, mid to mod TR, trace to small pericardial effusion. proBNP 15,000, treated with spot dose diuresis with resulting ELIZABETH that resolved with discontinuation of diuresis. requesting echo report from [facility]. due to ELIZABETH from diuresis previously and current ELIZABETH superimposed on CKD, will reduce Lasix to 40 IVP daily v Q12H. hold torsemide until further workup of urinary retention. monitor I&O and daily weights. Swelling of legs is better, will continue current treatment, consult cardiology. (4) Paroxysmal atrial fibrillation: Code(s): I48.0 - Paroxysmal atrial fibrillation Status: Acute Assessment and Plan: Experienced persistent AFib RVR during admission at the [facility], current home meds prior to admission were Pradaxa and Metoprolol. Previously on sotalol which was discontinued due to prolonged QT. given IV metoprolol and amiodarone bolus then gtt, transitioned to oral amiodarone which was subsequently discontinued due to elevated LFTs. Metoprolol was uptitrated to 200 mg b.i.d. and pradaxa continued. EKG today (01/18) showed sinus rhythm with incomplete RBBB, ST deviation and moderate T-wave abnormality. no significant changes compared to prior on 01/12/23. continue tele monitoring. Will ask cardio if Pradaxa is need in light of his bleeding. (5) Type 2 diabetes mellitus: Qualifiers: Diabetes mellitus exterminator termite insulin use: without exterminator termite use Diabetes mellitus complication status: without complication Qualified Code(s): E11.9 - Type 2 diabetes mellitus without complications Code(s): E11.9 - Type 2 diabetes mellitus without complications Status: Acute Assessment and Plan: Continue current treatment and monitor closely. Hypoglycemia protocol POC blood glucose ACHS home medications resumed/held - Jardiance continued, glimepiride held due to worsening CKD correct regimen ordered - low dose TIDWM and HS A1C 8.0 on 01/09/23 (6) Cellulitis of lower extremity: Code(s): L03.119 - Cellulitis of unspecified part of limb Status: Acute Assessment and Plan: Cipro 250mg po bid for 7 days Plan Home Meds/Chronic Conditions - zetia, gabapentin, crestor, and multivitamin continued Diet: Renal Dialysis Diet GI Prophylaxis: not currently indicated DVT Prophylaxis: SCDs, Lines: pIV Code Status: Full Code Subjective Date/time seen: 02/19/23 09:25 Interval history: Patient was seen during the mo
[2023-02-19 12:13] LABS: Glucose Point of Care 248 mg/dl (65-105)
--- NOTE | 2023-02-19 13:09 | PM.PNNEP ---
Progress Note: A&P Assessment and Plan (1) Chronic kidney disease, stage 3b: Code(s): N18.32 - Chronic kidney disease, stage 3b Status: Acute Assessment and Plan: The patient has chronic kidney disease. This is most likely due to hypertension and diabetes. Ultrasound is pending Most likely this is due to the diabetes and the high blood pressure. There are other causes such as glomerulonephritis, interstitial nephritis, infiltrative diseases, and inflammatory diseases. CKD evaluation is underway (2) ELIZABETH (acute kidney injury): Code(s): N17.9 - Acute kidney failure, unspecified Status: Acute Assessment and Plan: The patient has acute kidney injury. BUN and creatinine are much higher. He recently had a creatinine of 2.0 on 02/08. UA shows blood, and protein. the blood could be from the decompression of the bladder or from the barrientos itself. he was on pradaxa at the time. await serology and immunofix. Most likely the cause of this acute kidney injury is prostatic obstruction. however, the creatinine is not coming down. It was 2 only 10 days ago so we can't blame prolongued obstruction. He has a Barrientos catheter and is making much more urine. His creatinine did rise today but hopefully will start to come down tomorrow. see how the eval turns out. stay off pradaxa now and consider biopsy if the ultrasound doesn't show anything anatomic to explain the high creatinine. (3) Paroxysmal atrial fibrillation: Code(s): I48.0 - Paroxysmal atrial fibrillation Status: Acute Assessment and Plan: The patient has paroxysmal atrial fibrillation. He is in sinus rhythm now. (4) Anemia: Code(s): D64.9 - Anemia, unspecified Status: Acute Assessment and Plan: Hemoglobin is low. Tsat is low. ferritin is low as well. consider iron once UTI is treated. (5) CHF (congestive heart failure): Code(s): I50.9 - Heart failure, unspecified Status: Acute Assessment and Plan: The patient has congestive heart failure. It is not clear about the current anatomy of the heart but it seems that this might be mostly right-sided based on an echocardiogram done in 2019. He is making a lot of urine now so hopefully his swelling will improve since the catheter was placed. (6) Essential (primary) hypertension: Code(s): I10 - Essential (primary) hypertension Status: Acute Assessment and Plan: His blood pressure is a little bit soft. He is no longer on antihypertensives right now he is on metoprolol currently mostly for his heart and for rate control. (7) Type 2 diabetes mellitus: Qualifiers: Diabetes mellitus complication status: without complication Diabetes mellitus halfway insulin use: without extermination supervisor use Qualified Code(s): E11.9 - Type 2 diabetes mellitus without complications Code(s): E11.9 - Type 2 diabetes mellitus without complications Status: Acute Assessment and Plan: The patient has diabetes. Hospitalist to manage this. (8) Pyuria: Code(s): R82.81 - Pyuria Status: Acute Assessment and Plan: possibly a UTI? on cipro. will change this to BID. check urine culture Subjective Date/time seen: 02/19/23 13:09 Interval history: Patient feels okay. no cp or sob eating okay Review of Systems Cardiovascular: Cardiovascular: Reports no additional cardiovascular complaints Respiratory: Respiratory: Reports no additional respiratory complaints Gastrointestinal: Gastrointestinal: Reports no additional gastrointestinal complaints Genitourinary: Genitourinary: Reports no additional male genitourinary complaints Exam Narrative: WDWN in NAD skin no rash head ncat lungs clear cor reg no rub abd BS+ nontender and soft ext no edema. Objective Data Vital Signs Vital Signs: Vital Signs - 24 hr 02/18/23 13:40 02/18/23 16:00 02/18/23 19:33 Temper
[2023-02-19 16:58] LABS: Glucose Point of Care 257 mg/dl (65-105)
[2023-02-19 17:47] LABS: Glucose Point of Care 279 mg/dl (65-105)
[2023-02-19] MEDS: CIPROFLOXACIN 250 MG TABLET PO (20:05)
[2023-02-19 20:41] LABS: Glucose Point of Care 287 mg/dl (65-105)
[2023-02-20] VITALS (13 sets, daily range): BP systolic 100–106; BP diastolic 52–58; PULSE 59–77; RESP 14–16; TEMP 36.5; O2SAT 93–95
[2023-02-20 05:29] LABS: Basophils Percent Auto 0.2 % (0.2-1.2); Eosinophils Absolute Auto 0.1 K/mm3 (0-0.3); Eosinophils Percent Auto 1.4 % (0-4.4); Hematocrit 29.7 % (42.0-52.0); Hemoglobin 8.5 g/dL (14.0-18.0); Immature Granulocyte Absolute 0.03 K/mm3 (0.00-0.031); Immature Granulocyte Percent A 0.4 % (0-0.5); Lymphocytes Absolute Auto 0.54 K/mm3 (0.9-3.2); Lymphocytes Percent Auto 6.7 % (18.3-44.2); Mean Corpuscular HGB Conc 28.6 g/dl (32-36); Mean Corpuscular Hemoglobin 25.4 pg (26-34); Mean Corpuscular Volume 88.9 fl (80-100); Monocytes Absolute Auto 0.6 K/mm3 (0.1-0.6); Monocytes Percent Auto 6.9 % (2.6-8.5); Neutrophils Absolute Auto 6.8 K/mm3 (1.3-6.7); Neutrophils Percent Auto 84.4 % (45.5-73.1); Nucleated Red Blood Cells Perc 0.4 % (0.0-0.2); Platelet Count Result 191 k/mm3 (150-375); Red Blood Count 3.34 M/mm3 (4.6-6.20); Red Cell Distribution Width 21.8 % (11.5-14.5); White Blood Count 8.1 K/mm3 (4.5-10.0)
[2023-02-20 05:47] LABS: Alanine Aminotransferase 94 U/L (6-50); Albumin Level 2.6 g/dL (3.5-5.1); Alkaline Phosphatase 192 U/L (38-126); Anion Gap 10 mmol/L (8-16); Aspartate Amino Transferase 117 U/L (17-59); Bilirubin,Total 0.8 mg/dL (0.2-1.3); Blood Urea Nitrogen 72 mg/dL (9-20); Calcium 7.6 mg/dL (8.4-10.2); Carbon Dioxide 21 mmol/L (22-30); Chloride 103 mmol/L (98-107); Estimated CRCL calculation 15 ml/min; Estimated Glomerular Filt Rate 13; Glucose 236 mg/dL (65-110); Phosphorus 5.5 mg/dL (2.5-4.5); Potassium 3.2 mmol/L (3.4-5.0); Sodium 134 mmol/L (137-145)
[2023-02-20 06:03] LABS: Hypochromasia 1+ (NORMAL); Large Platelets Present; Platelet Estimate Adequate (Adequate)
[2023-02-20 06:04] LABS: Anisocytosis 1+ (NORMAL); Burr Cells 1+ (NORMAL); Microcytosis 1+ (NORMAL); Ovalocytes 1+ (NORMAL); Poikilocytosis 1+ (NORMAL); Schistocytes None Seen (NORMAL)
--- NOTE | 2023-02-20 08:35 | PM.CNCAR ---
Assessment and Plan Assessment and plan (1) Paroxysmal atrial fibrillation: Code(s): I48.0 - Paroxysmal atrial fibrillation Status: Acute Assessment and Plan: History of atrial fibrillation. On sotalol which was discontinued due to prolonged QT. It also been on metoprolol and amiodarone. Currently controlled on metoprolol alone. Previously on Pradaxa for anticoagulation. Recent brain bleed following a fall or syncopal episode. Treated conservatively with monitoring for several weeks at [facility]. Will need to review records from [facility] regarding plans and recommendations regarding anticoagulation. Obviously given fall risk, recent bleed, continuing anticoagulation is not without significant risk yet he is at significant stroke risk because of his atrial fibrillation without anticoagulation. This likely would result in considering the patient for candidacy of a left atrial appendage occluded device when more medically stable. (2) Chronic anticoagulation: Code(s): Z79.01 - senior care (current) use of anticoagulants Status: Acute Assessment and Plan: As above (3) CAD in craig artery: Code(s): I25.10 - Atherosclerotic heart disease of craig coronary artery without angina pectoris Status: Acute Assessment and Plan: On statin (4) Intraventricular hemorrhage: Code(s): I61.5 - Nontraumatic intracerebral hemorrhage, intraventricular Status: Acute Assessment and Plan: Recent IV bleed treated conservatively. Will need to review records from what she recited (5) Acute on chronic heart failure with preserved ejection fraction (HFpEF): Code(s): I50.33 - Acute on chronic diastolic (congestive) heart failure Status: Acute Assessment and Plan: Predominantly right-sided. Worsened by worsening renal failure. Diuretics per Dr. Dorsey at this point. Potassium is low and will replace with 40 mEq p.o. x1 today History of Present Illness History of Present Illness Consult date/time: 02/20/23 08:35 Requesting physician: Yordy Marcial MD Consult reason: atrial fibrillation and Other (? Need for anticoagulation) Reason For Visit: ELIZABETH on CKD/Obstructive Uropathy/Edema Narrative: Date of service 02/20/2023 Reason consultation: History of atrial fibrillation brain bleed? Need for anticoagulation Requesting provider: Dr. Marcial History: Patient is a 77-year-old male who has had a complex history as of late. He has been admitted and underwent a cardioversion as recently as December. In early January he either tripped and fell or passed out. He hit his head and had a subsequent interventricular hemorrhage and was transferred and treated at [facility]. He was an [facility] for about 3 weeks and then discharged [facility] for another week to 10 days. He was recently discharged to home. He has a history of CAD, CKD, hyperlipidemia, atrial fibrillation, diabetes who came to this hospital most recently on 02/17/2023 because of worsening swelling, weakness and shortness of breath. Patient states that he slid out of his chair onto the floor without any significant trauma. He was unable to get up. He was having urinary retention and was found have acute renal failure with a baseline creatinine of 2.0 an initial creatinine upon admission was 4.2. This is thought to be related to bladder outlet obstruction. Because of his history, the question from the hospitalist is whether not he needs Pradaxa for anticoagulation at this point. He has severe edema and states that he was so swollen he could not move his feet. He has no significant shortness of breath. No chest pain. No paroxysmal nocturnal dyspnea, orthopnea, palpitations, syncope or presyncope. Review of Systems Review of Systems: All systems reviewed & are unremarkable except as noted in HPI and below Constitutional: Constitutional: Reports weakness Eyes: Eyes: Denies blurry vision ENT: Denies
[2023-02-20 08:42] LABS: Glucose Point of Care 216 mg/dl (65-105)
[2023-02-20] MEDS: INSULIN ASPART (*BKC) 100 UNITS/ML SUB-Q ×4 (08:52→22:15)
[2023-02-20] MEDS: EZETIMIBE 10 MG TABLET PO (08:53)
[2023-02-20] MEDS: THERAPEUTIC MULTIVITAMINS/MINERALS TAB (*BKC) 1 TABLET PO (08:53)
[2023-02-20] MEDS: GABAPENTIN 100 MG CAPSULE 200 MG PO ×3 (08:53→17:28)
[2023-02-20] MEDS: EMPAGLIFLOZIN 25 MG TABLET PO (08:53)
[2023-02-20] MEDS: ROSUVASTATIN 10 MG TABLET 40 MG PO (08:53)
[2023-02-20] MEDS: CIPROFLOXACIN 250 MG TABLET PO ×2 (08:54→20:51)
[2023-02-20] MEDS: FUROSEMIDE INJ 40 MG/4 ML VIAL IV PUSH (08:54)
[2023-02-20] MEDS: POTASSIUM CHLORIDE 20 MEQ ER TABLET 40 MEQ PO (09:23)
--- NOTE | 2023-02-20 11:17 | PM.PNNEP ---
Progress Note: A&P Assessment and Plan (1) ELIZABETH (acute kidney injury): Code(s): N17.9 - Acute kidney failure, unspecified Status: Acute Assessment and Plan: etiology? suspicion falls on obstruction -- however, despite barrientos catheter placement, creatininie not coming down.... continue to make good urine output evaluation to date: renal ultrasound with left renal atrophy UA with blood and protein urine electrolytes non-prenal CPK low serological testing pending consider renal biopsy? follow trend of repeat labs and UOP (2) Chronic kidney disease, stage 3b: Code(s): N18.32 - Chronic kidney disease, stage 3b Status: Acute Assessment and Plan: baseline creatinine runs around 1.4 - 2.0mg/dl in the last several months suspect secondary to hypertension, diabetes, and age related change (3) Paroxysmal atrial fibrillation: Code(s): I48.0 - Paroxysmal atrial fibrillation Status: Acute Assessment and Plan: rate control strategy Cardiology following holding anticoagulation currently (4) Anemia: Code(s): D64.9 - Anemia, unspecified Status: Acute Assessment and Plan: due to iron deficiency and ELIZABETH along with CKD follow trend of H/H IV iron once infection treated (5) CHF (congestive heart failure): Code(s): I50.9 - Heart failure, unspecified Status: Acute Assessment and Plan: appears right sided based on last Echo good urine output noted (on diuretics) follow volume status (6) Essential (primary) hypertension: Code(s): I10 - Essential (primary) hypertension Status: Acute Assessment and Plan: soft BP/relative hypotension noted BP meds on hold except for metoprolol metoprolol is more for rate control follow trend of hemodynamics (7) Pyuria: Code(s): R82.81 - Pyuria Status: Acute Assessment and Plan: possible UTI follow culture data on antibiotics (8) Type 2 diabetes mellitus: Qualifiers: Diabetes mellitus complication status: without complication Diabetes mellitus detention insulin use: without vermin exterminator use Qualified Code(s): E11.9 - Type 2 diabetes mellitus without complications Code(s): E11.9 - Type 2 diabetes mellitus without complications Status: Chronic Assessment and Plan: follow accu-cheks glycemic control per hospitalists Will continue to follow. Subjective Date/time seen: 02/20/23 11:17 Interval history: Follow-up for acute kidney injury/acute renal failure on chronic kidney disease. Chart reviewed -- assuming care from Dr. Doresy; renal function/creatinine about the same in the last 24 hours but continues to make good urine output; no apparent distress noted/voiced; no other issues/events overnight or earlier this morning. Exam Narrative: General: WD/WN male in NAD Heart: normal S1 and S2; no rub Lungs: clear to auscultation Abdomen: soft, nontender, nondistended, positive bowel sounds Extremities: no cyanosis or clubbing; no edema Skin: warm and dry Objective Data Vital Signs Vital Signs: Vital Signs Temp Pulse Resp BP Pulse Ox O2 Del Method O2 Flow Rate 02/20/23 11:00 97.7 F 62 14 103/56 L 95 02/20/23 09:25 65 02/20/23 08:45 65 16 94 Nasal Cannula 2 02/20/23 09:19 65 106/55 L 02/20/23 05:45 97.7 F 60 16 100/52 L 94 02/20/23 04:00 72 02/20/23 00:00 61 02/19/23 20:00 62 02/19/23 20:00 92 Nasal Cannula 1 02/19/23 20:05 100 02/19/23 19:50 97.9 F 100 16 100/53 L 92 02/19/23 16:00 60 Intake/Output Intake/Output: Intake & Output 02/17/23 02/18/23 02/19/23 02/20/23 23:59 23:59 23:59 23:59 Intake Total 1210 1830 1520 830 Output Total 900 2200 2500 1400 Balance 310 -370 -980 -570 Meds/Results Medications: Active Medications Generic Name Dose Route St
--- NOTE | 2023-02-20 11:17 | P.PNNP_ITS ---
Progress Note: A&P Assessment and Plan (1) ELIZABETH (acute kidney injury): Code(s): N17.9 - Acute kidney failure, unspecified Status: Acute Assessment and Plan: * etiology? * suspicion falls on obstruction -- however, despite barrientos catheter placement, creatininie not coming down.... * continue to make good urine output * evaluation to date: * renal ultrasound with left renal atrophy * UA with blood and protein * urine electrolytes non-prenal * CPK low * serological testing pending * consider renal biopsy? * follow trend of repeat labs and UOP (2) Chronic kidney disease, stage 3b: Code(s): N18.32 - Chronic kidney disease, stage 3b Status: Acute Assessment and Plan: * baseline creatinine runs around 1.4 - 2.0mg/dl in the last several months * suspect secondary to hypertension, diabetes, and age related change (3) Paroxysmal atrial fibrillation: Code(s): I48.0 - Paroxysmal atrial fibrillation Status: Acute Assessment and Plan: * rate control strategy * Cardiology following * holding anticoagulation currently (4) Anemia: Code(s): D64.9 - Anemia, unspecified Status: Acute Assessment and Plan: * due to iron deficiency and ELIZABETH along with CKD * follow trend of H/H * IV iron once infection treated (5) CHF (congestive heart failure): Code(s): I50.9 - Heart failure, unspecified Status: Acute Assessment and Plan: * appears right sided based on last Echo * good urine output noted (on diuretics) * follow volume status (6) Essential (primary) hypertension: Code(s): I10 - Essential (primary) hypertension Status: Acute Assessment and Plan: * soft BP/relative hypotension noted * BP meds on hold except for metoprolol * metoprolol is more for rate control * follow trend of hemodynamics (7) Pyuria: Code(s): R82.81 - Pyuria Status: Acute Assessment and Plan: * possible UTI * follow culture data * on antibiotics (8) Type 2 diabetes mellitus: Qualifiers: Diabetes mellitus complication status: without complication Diabetes mellitus buttermaker insulin use: without buttermaker use Qualified Code(s): E11.9 - Type 2 diabetes mellitus without complications Code(s): E11.9 - Type 2 diabetes mellitus without complications Status: Chronic Assessment and Plan: * follow accu-cheks * glycemic control per hospitalists Will continue to follow. Subjective Date/time seen: 02/20/23 11:17 Interval history: Follow-up for acute kidney injury/acute renal failure on chronic kidney disease. Chart reviewed -- assuming care from Dr. Dorsey; renal function/creatinine about the same in the last 24 hours but continues to make good urine output; no apparent distress noted/voiced; no other issues/events overnight or earlier this morning. Exam Narrative: General: WD/WN male in NAD Heart: normal S1 and S2; no rub Lungs: clear to auscultation Abdomen: soft, nontender, nondistended, positive bowel sounds Extremities: no cyanosis or clubbing; no edema Skin: warm and dry Objective Data Vital Signs Vital Signs: Vital Signs Temp Pulse Resp BP Pulse Ox O2 Del Method O2 Flow Rate 02/20/23 11:00 97.7 F 62 14 103/56 L 95 02/20/23 09:25 65
[2023-02-20 12:07] LABS: Glucose Point of Care 254 mg/dl (65-105)
--- NOTE | 2023-02-20 13:18 | PM.IMPN ---
Progress Note: A&P Assessment and Plan (1) Type 2 diabetes mellitus: Qualifiers: Diabetes mellitus residential insulin use: without residential use Diabetes mellitus complication status: without complication Qualified Code(s): E11.9 - Type 2 diabetes mellitus without complications Code(s): E11.9 - Type 2 diabetes mellitus without complications Status: Acute (2) Hyperlipidemia: Qualifiers: Hyperlipidemia type: mixed hyperlipidemia Qualified Code(s): E78.2 - Mixed hyperlipidemia Code(s): E78.5 - Hyperlipidemia, unspecified Status: Acute (3) Primary hypertension: Code(s): I10 - Essential (primary) hypertension Status: Acute (4) Paroxysmal atrial fibrillation: Code(s): I48.0 - Paroxysmal atrial fibrillation Status: Acute (5) Chronic renal insufficiency, stage IV (severe): Code(s): N18.4 - Chronic kidney disease, stage 4 (severe) Status: Acute Plan unclear etiology for advancing CKD as of now, biopsy would be helpful. multimodal contributions including possible UTI, possible outlet obstruction, DM, HTN. pending further workup with nephrology. cont to trend I/O's and BMP fluid overload, combination of ELIZABETH and right heart failure w/ diastolic dysfunction seen on echo 02/18/23. lasix 40mg iv daily p a fib. cardiology consulted. pradaxa on hold for now, pending record review from [facility]. Cont metoprolol 200mg po BID replacing hypokalemia, recheck bmp and magnesium in AM. ciprofloxacin for possible UTI/cellulitis. pending urine culture guarded. full code. SCD's Subjective Date/time seen: 02/20/23 13:18 Interval history: naoe. pt is resting comfortably in bed, flat. he denies symptoms, although does not appear to want to participate with exam much Review of Systems Review of Systems: All systems reviewed & are unremarkable except as noted in HPI and below (subjective) Exam Const: General: comfortable and no acute distress Resp: Effort & Inspection: normal respiratory effort Auscultation: diminished lung sounds Cardio: Rate: regular rate Rhythm: regular rhythm GI: GI Palp: Yes Soft to palpation Extrem: General: edema Objective Data Vital Signs Vital Signs: Vital Signs - 24 hr 02/19/23 14:00 02/19/23 16:00 02/19/23 19:50 Temperature 98.4 F 97.9 F Pulse Rate 60 60 100 Respiratory Rate 20 16 Blood Pressure 97/52 L 100/53 L Pulse Oximetry 92 92 Oxygen Delivery Oxygen Flow Rate 02/19/23 20:05 02/19/23 20:00 02/19/23 20:00 Temperature Pulse Rate 100 62 Respiratory Rate Blood Pressure Pulse Oximetry 92 Oxygen Delivery Nasal Cannula Oxygen Flow Rate 1 02/20/23 00:00 02/20/23 04:00 02/20/23 05:45 Temperature 97.7 F Pulse Rate 61 72 60 Respiratory Rate 16 Blood Pressure 100/52 L Pulse Oximetry 94 Oxygen Delivery Oxygen Flow Rate 02/20/23 09:19 02/20/23 08:45 02/20/23 09:25 Temperature Pulse Rate 65 65 65 Respiratory Rate 16 Blood Pressure 106/55 L Pulse Oximetry 94 Oxygen Delivery Nasal Cannula Oxygen Flow Rate 2 Intake/Output Intake/Output: Intake & Output 02/17/23 02/18/23 02/19/23 02/20/23 23:59 23:59 23:59 23:59 Intake Total 1210 1830 1520 590 Output Total 900 2200 2500 1400 Balance 310 370 980 -810 Meds/Results Medications: Active Medications Generic Name Dose Route Start Last Admin Trade Name Freq PRN Reason Stop Dose Admin Ciprofloxacin 250 mg 02/19/23 09:00 02/20/23 09:24 Ciprofloxacin 250 Mg Tablet PO Not Given Q12HR ANICETO Dabigatran 150 mg 02/18/23 09:00 02/18/23 08:57 Dabigatran Etexilate 150 Mg Capsule PO 150 mg BID ANICETO Administration Dextrose 12.5 gm 02/17/23 22:12 Dextrose 50% 25 Gm/50 Ml Syringe IV PUSH PRN PRN Hypoglycemia Protocol Ezetimibe 10 mg 02/18/23 09:00 02/20/23 08:53 Ezetimibe 10 Mg Tablet PO 10 mg DAILY ANICETO Administration Em
[2023-02-20 16:59] LABS: Glucose Point of Care 262 mg/dl (65-105)
[2023-02-20] MEDS: METOPROLOL TARTRATE 50 MG TAB 200 MG PO (20:52)
[2023-02-20 22:08] LABS: Glucose Point of Care 249 mg/dl (65-105)
[2023-02-21] VITALS (15 sets, daily range): BP systolic 92–105; BP diastolic 43–77; PULSE 59–67; RESP 16–18; TEMP 36.4–36.5; O2SAT 92–98
[2023-02-21 06:26] LABS: Basophils Percent Auto 0.1 % (0.2-1.2); Eosinophils Absolute Auto 0.2 K/mm3 (0-0.3); Eosinophils Percent Auto 2.4 % (0-4.4); Hematocrit 31.3 % (42.0-52.0); Hemoglobin 8.8 g/dL (14.0-18.0); Immature Granulocyte Absolute 0.04 K/mm3 (0.00-0.031); Immature Granulocyte Percent A 0.5 % (0-0.5); Lymphocytes Absolute Auto 0.77 K/mm3 (0.9-3.2); Lymphocytes Percent Auto 9.2 % (18.3-44.2); Mean Corpuscular HGB Conc 28.1 g/dl (32-36); Mean Corpuscular Hemoglobin 25.1 pg (26-34); Mean Corpuscular Volume 89.4 fl (80-100); Monocytes Absolute Auto 0.7 K/mm3 (0.1-0.6); Monocytes Percent Auto 7.8 % (2.6-8.5); Neutrophils Absolute Auto 6.7 K/mm3 (1.3-6.7); Nucleated Red Blood Cells Perc 0.2 % (0.0-0.2); Platelet Count Result 201 k/mm3 (150-375); White Blood Count 8.4 K/mm3 (4.5-10.0)
[2023-02-21 06:55] LABS: Platelet Estimate Adequate (Adequate)
[2023-02-21 06:56] LABS: Crenated RBC 1+ (NORMAL); Helmet Cells 1+ (NORMAL); Ovalocytes 1+ (NORMAL); Schistocytes None Seen (NORMAL); Tear Drop Cells 1+ (NORMAL)
[2023-02-21 07:05] LABS: Alanine Aminotransferase 183 U/L (6-50); Albumin Level 2.7 g/dL (3.5-5.1); Alkaline Phosphatase 230 U/L (38-126); Anion Gap 7 mmol/L (8-16); Aspartate Amino Transferase 314 U/L (17-59); Bilirubin,Total 1.1 mg/dL (0.2-1.3); Blood Urea Nitrogen 70 mg/dL (9-20); Calcium 7.9 mg/dL (8.4-10.2); Carbon Dioxide 26 mmol/L (22-30); Chloride 102 mmol/L (98-107); Estimated CRCL calculation 16 ml/min; Estimated Glomerular Filt Rate 14; Glucose 158 mg/dL (65-110); Magnesium 2.4 mg/dL (1.6-2.3); Phosphorus 5.2 mg/dL (2.5-4.5); Potassium 3.4 mmol/L (3.4-5.0); Sodium 135 mmol/L (137-145)
[2023-02-21 08:10] LABS: Glucose Point of Care 156 mg/dl (65-105)
--- NOTE | 2023-02-21 09:02 | PCPTNOTE ---
Attempted to see patient for PT, however patient declined this morning. Patient reported he has an important meeting at 9:00 a.m. and asked PT to come back later.
[2023-02-21] MEDS: EMPAGLIFLOZIN 25 MG TABLET PO (10:37)
[2023-02-21] MEDS: GABAPENTIN 100 MG CAPSULE 200 MG PO ×3 (10:37→17:24)
[2023-02-21] MEDS: ROSUVASTATIN 10 MG TABLET 40 MG PO (10:37)
[2023-02-21] MEDS: EZETIMIBE 10 MG TABLET PO (10:37)
[2023-02-21] MEDS: THERAPEUTIC MULTIVITAMINS/MINERALS TAB (*BKC) 1 TABLET PO (10:38)
[2023-02-21] MEDS: FUROSEMIDE INJ 40 MG/4 ML VIAL IV PUSH (10:38)
[2023-02-21] MEDS: CIPROFLOXACIN 250 MG TABLET PO ×2 (10:38→22:00)
--- NOTE | 2023-02-21 11:18 | PM.PNNEP ---
Progress Note: A&P Assessment and Plan (1) ELIZABETH (acute kidney injury): Code(s): N17.9 - Acute kidney failure, unspecified Status: Acute Assessment and Plan: slow improvement noted etiology? suspicion falls on obstruction -- however, despite barrientos catheter placement, creatininie not coming down.... continue to make good urine output evaluation to date: renal ultrasound with left renal atrophy UA with blood and protein urine electrolytes non-prenal CPK low serological testing pending consider renal biopsy? follow trend of repeat labs and UOP (2) Chronic kidney disease, stage 3b: Code(s): N18.32 - Chronic kidney disease, stage 3b Status: Acute Assessment and Plan: baseline creatinine runs around 1.4 - 2.0mg/dl in the last several months suspect secondary to hypertension, diabetes, and age related change (3) Paroxysmal atrial fibrillation: Code(s): I48.0 - Paroxysmal atrial fibrillation Status: Acute Assessment and Plan: rate control strategy Cardiology following holding anticoagulation currently (4) Anemia: Code(s): D64.9 - Anemia, unspecified Status: Acute Assessment and Plan: due to iron deficiency and ELIZABETH along with CKD follow trend of H/H IV iron once infection treated (5) CHF (congestive heart failure): Code(s): I50.9 - Heart failure, unspecified Status: Acute Assessment and Plan: appears right sided based on last Echo good urine output noted (on diuretics) follow volume status (6) Essential (primary) hypertension: Code(s): I10 - Essential (primary) hypertension Status: Acute Assessment and Plan: soft BP/relative hypotension noted BP meds on hold except for metoprolol metoprolol is more for rate control follow trend of hemodynamics (7) Pyuria: Code(s): R82.81 - Pyuria Status: Acute Assessment and Plan: possible UTI follow culture data on antibiotics (8) Type 2 diabetes mellitus: Qualifiers: Diabetes mellitus jail insulin use: without manager of marketing use Diabetes mellitus complication status: without complication Qualified Code(s): E11.9 - Type 2 diabetes mellitus without complications Code(s): E11.9 - Type 2 diabetes mellitus without complications Status: Chronic Assessment and Plan: follow accu-cheks glycemic control per hospitalists Will continue to follow. Subjective Date/time seen: 02/21/23 11:18 Interval history: Follow-up for acute kidney injury/acute renal failure on chronic kidney disease. Continues to make good urine output and renal function is a tad better by AM labs; otherwise, report feeling quite well; lowe extremity edema still persists; no apparent distress voiced. Exam Narrative: General: WD/WN male in NAD Heart: normal S1 and S2; no rub Lungs: clear to auscultation Abdomen: soft, nontender, nondistended, positive bowel sounds Extremities: no cyanosis or clubbing; != edema Skin: warm and intact Objective Data Vital Signs Vital Signs: Vital Signs Temp Pulse Resp BP Pulse Ox O2 Del Method O2 Flow Rate 02/21/23 10:15 98 Nasal Cannula 1 02/21/23 10:20 63 104/48 L 98 02/21/23 05:42 97.7 F 60 16 103/56 L 98 02/21/23 04:00 59 L 02/21/23 00:00 65 02/20/23 21:52 97.7 F 77 16 102/58 L 93 02/20/23 20:00 63 14 95 Nasal Cannula 1 02/20/23 20:00 63 02/20/23 20:52 63 02/20/23 16:00 64 02/20/23 12:00 65 02/20/23 14:30 97.7 F 62 14 103/56 L 95 Intake/Output Intake/Output: Intake & Output 02/18/23 02/19/23 02/20/23 02/21/23 23:59 23:59 23:59 23:59 Intake Total 1830 1520 1520 790 Output Total 2200 2500 3450 1700 Balance -370 -980 -1930 -910 Meds/Results Medications: Active Medications Generic Name Dose Route Start Last Admin Trade N
--- NOTE | 2023-02-21 11:18 | P.PNNP_ITS ---
Progress Note: A&P Assessment and Plan (1) ELIZABETH (acute kidney injury): Code(s): N17.9 - Acute kidney failure, unspecified Status: Acute Assessment and Plan: * slow improvement noted * etiology? * suspicion falls on obstruction -- however, despite barrientos catheter placement, creatininie not coming down.... * continue to make good urine output * evaluation to date: * renal ultrasound with left renal atrophy * UA with blood and protein * urine electrolytes non-prenal * CPK low * serological testing pending * consider renal biopsy? * follow trend of repeat labs and UOP (2) Chronic kidney disease, stage 3b: Code(s): N18.32 - Chronic kidney disease, stage 3b Status: Acute Assessment and Plan: * baseline creatinine runs around 1.4 - 2.0mg/dl in the last several months * suspect secondary to hypertension, diabetes, and age related change (3) Paroxysmal atrial fibrillation: Code(s): I48.0 - Paroxysmal atrial fibrillation Status: Acute Assessment and Plan: * rate control strategy * Cardiology following * holding anticoagulation currently (4) Anemia: Code(s): D64.9 - Anemia, unspecified Status: Acute Assessment and Plan: * due to iron deficiency and ELIZABETH along with CKD * follow trend of H/H * IV iron once infection treated (5) CHF (congestive heart failure): Code(s): I50.9 - Heart failure, unspecified Status: Acute Assessment and Plan: * appears right sided based on last Echo * good urine output noted (on diuretics) * follow volume status (6) Essential (primary) hypertension: Code(s): I10 - Essential (primary) hypertension Status: Acute Assessment and Plan: * soft BP/relative hypotension noted * BP meds on hold except for metoprolol * metoprolol is more for rate control * follow trend of hemodynamics (7) Pyuria: Code(s): R82.81 - Pyuria Status: Acute Assessment and Plan: * possible UTI * follow culture data * on antibiotics (8) Type 2 diabetes mellitus: Qualifiers: Diabetes mellitus manager intermediate insulin use: without alf use Diabetes mellitus complication status: without complication Qualified Code(s): E11.9 - Type 2 diabetes mellitus without complications Code(s): E11.9 - Type 2 diabetes mellitus without complications Status: Chronic Assessment and Plan: * follow accu-cheks * glycemic control per hospitalists Will continue to follow. Subjective Date/time seen: 02/21/23 11:18 Interval history: Follow-up for acute kidney injury/acute renal failure on chronic kidney disease. Continues to make good urine output and renal function is a tad better by AM labs; otherwise, report feeling quite well; lowe extremity edema still persists; no apparent distress voiced. Exam Narrative: General: WD/WN male in NAD Heart: normal S1 and S2; no rub Lungs: clear to auscultation Abdomen: soft, nontender, nondistended, positive bowel sounds Extremities: no cyanosis or clubbing; != edema Skin: warm and intact Objective Data Vital Signs Vital Signs: Vital Signs Temp Pulse Resp BP Pulse Ox O2 Del Method O2 Flow Rate 02/21/23 10:15 98 Nasal Cannula 1 02/21/23 10:20 63 104/48 L 98 02/21/23 05:42 97.7 F 6
[2023-02-21 12:10] LABS: IFOB Positive Control Positive; Immunochemical Fecal Occult Bl Positive (N)
[2023-02-21 12:17] LABS: Glucose Point of Care 310 mg/dl (65-105)
[2023-02-21] MEDS: INSULIN ASPART (*BKC) 100 UNITS/ML SUB-Q ×3 (12:52→22:04)
--- NOTE | 2023-02-21 16:56 | PM.PNCARD ---
Progress Note: A&P Assessment and Plan (1) Paroxysmal atrial fibrillation: Code(s): I48.0 - Paroxysmal atrial fibrillation Status: Acute Assessment and Plan: History of atrial fibrillation.? On Sotalol which was discontinued due to prolonged QT.? He has also been on Metoprolol and Amiodarone.? Currently controlled on Metoprolol alone.? Previously on Pradaxa for anticoagulation.? Recent brain bleed following a fall or syncopal episode.? Treated conservatively with monitoring for several weeks at [facility].? Records from [facility] reviewed -- he was discharged on Pradaxa after being admitted with brain bleed. Pradaxa is currently on hold for potential renal biopsy, can resume when no longer needing to be held for biospy. Will need outpatient follow up for consideration for candidacy of a left atrial appendage occluded device when more medically stable. (2) Chronic anticoagulation: Code(s): Z79.01 - terminal clerk (current) use of anticoagulants Status: Acute Assessment and Plan: As noted above. (3) Coronary artery disease: Code(s): I25.10 - Atherosclerotic heart disease of [place] coronary artery without angina pectoris Status: Acute Assessment and Plan: Stable, continue statin (4) Acute on chronic heart failure with preserved ejection fraction (HFpEF): Code(s): I50.33 - Acute on chronic diastolic (congestive) heart failure Status: Acute Assessment and Plan: Predominantly right-sided.? Worsened by worsening renal failure.? Diuretics per Nephrology at this point. Subjective Date/time seen: 02/21/23 16:56 Interval history: Reason for visit: ELIZABETH on CKD/Obstructive Uropathy/Edema HPI: Patient is a 77-year-old male who has had a complex history as of late.? He has been admitted and underwent a cardioversion as recently as December.? In early January he either tripped and fell or passed out.? He hit his head and had a subsequent interventricular hemorrhage and was transferred and treated at [facility].? He was an [facility] for about 3 weeks and then discharged [facility] for another week to 10 days.? He was recently discharged to home.? He has a history of CAD, CKD, hyperlipidemia, atrial fibrillation, diabetes who came to this hospital most recently on 02/17/2023 because of worsening swelling, weakness and shortness of breath.? Patient states that he slid out of his chair onto the floor without any significant trauma.? He was unable to get up.? He was having urinary retention and was found have acute renal failure with a baseline creatinine of 2.0 an initial creatinine upon admission was 4.2.? This is thought to be related to bladder outlet obstruction.? Because of his history, the question from the hospitalist is whether not he needs Pradaxa for anticoagulation at this point.? He has severe edema and states that he was so swollen he could not move his feet.? He has no significant shortness of breath.? No chest pain.? No paroxysmal nocturnal dyspnea, orthopnea, palpitations, syncope or presyncope. Date of service 02/21: Patient tells me that he feels great. No shortness of breath or orthopnea. Still with lower extremity edema. Not a big fan of being on a renal diet. Review of Systems Review of Systems: - Chest pain - Shortness of breath - Orthopnea + Lower extremity edema Exam Const: General: comfortable and no acute distress HENMT: Mouth: Yes moist mucous membranes Eyes: General: appearance normal, both eyes and all related structures Sclera: sclerae normal Neck: Neck: supple Resp: Effort & Inspection: normal respiratory effort Cardio: Rate: regular rate Rhythm: regular rhythm Other: Significant bilateral lower extremity edema Skin: General skin exam: normal color Neuro: Speech: normal speech Psych: Mental Status: mental status grossly normal Affect: normal affect Objective Data Vital Signs Vital Signs: Vital Signs - 24 hr 02/20/23 20:52 02/20
[2023-02-21 17:08] LABS: Glucose Point of Care 235 mg/dl (65-105)
--- NOTE | 2023-02-21 17:24 | PM.IMPN ---
Progress Note: A&P Assessment and Plan (1) Intraventricular hemorrhage: Code(s): I61.5 - Nontraumatic intracerebral hemorrhage, intraventricular Status: Acute (2) Atrial fibrillation with RVR: Code(s): I48.91 - Unspecified atrial fibrillation Status: Acute (3) Chronic kidney disease, stage 3: Code(s): N18.30 - Chronic kidney disease, stage 3 unspecified Status: Acute (4) CHF (congestive heart failure): Code(s): I50.9 - Heart failure, unspecified Status: Acute Plan mild improvement in sCR. continue to monitor this. the patient has no symptoms and he is now off of oxygen. cont treating with abx and lasix. pradaxa on hold until no biopsy needed for sure. reconsider tomorrow if sCR is better again. for now will cover with HSC TID. continue to monitor lfts. at the moment suspect hepatic congestion but need to ensure improvement of LFT's. appreciate nephrology recs full code Subjective Date/time seen: 02/21/23 17:24 Interval history: naoe. the niece is present in room and helps with history. the patient is mainly concerned about what diet he should be eating at home. educated. Review of Systems Review of Systems: All systems reviewed & are unremarkable except as noted in HPI and below (subjective) Exam Const: General: comfortable and no acute distress Eyes: Pupils: Equal, round and reactive pupils present Neck: Neck: supple Resp: Effort & Inspection: normal respiratory effort Auscultation: crackles (scant diffuse) Cardio: Rate: regular rate Rhythm: regular rhythm Heart sounds: no gallops, no murmurs and no rubs GI: GI Palp: Yes Soft to palpation and No Tenderness to palpation present (GI) Extrem: General: edema (3+ edema of LES, erythema b/l LES L>R) Objective Data Vital Signs Vital Signs: Vital Signs - 24 hr 02/20/23 20:52 02/20/23 20:00 02/20/23 20:00 Temperature Pulse Rate 63 63 63 Respiratory Rate 14 Blood Pressure Pulse Oximetry 95 Oxygen Delivery Nasal Cannula Oxygen Flow Rate 1 02/20/23 21:52 02/21/23 00:00 02/21/23 04:00 Temperature 97.7 F Pulse Rate 77 65 59 L Respiratory Rate 16 Blood Pressure 102/58 L Pulse Oximetry 93 Oxygen Delivery Oxygen Flow Rate 02/21/23 05:42 02/21/23 10:20 02/21/23 10:15 Temperature 97.7 F Pulse Rate 60 63 Respiratory Rate 16 Blood Pressure 103/56 L 104/48 L Pulse Oximetry 98 98 98 Oxygen Delivery Nasal Cannula Oxygen Flow Rate 1 02/21/23 08:00 02/21/23 13:13 02/21/23 12:00 Temperature 97.6 F Pulse Rate 66 64 64 Respiratory Rate 18 Blood Pressure 92/47 L Pulse Oximetry 97 Oxygen Delivery Oxygen Flow Rate 02/21/23 13:54 02/21/23 16:00 02/21/23 17:23 Temperature Pulse Rate 65 66 Respiratory Rate Blood Pressure 105/43 L Pulse Oximetry 92 Oxygen Delivery Room Air Oxygen Flow Rate Intake/Output Intake/Output: Intake & Output 02/18/23 02/19/23 02/20/23 02/21/23 23:59 23:59 23:59 23:59 Intake Total 1830 1520 1520 1030 Output Total 2200 2500 3450 1700 Balance -370 -980 -1930 -670 Meds/Results Medications: Active Medications Generic Name Dose Route Start Last Admin Trade Name Freq PRN Reason Stop Dose Admin Ciprofloxacin 250 mg 02/19/23 09:00 02/21/23 10:38 Ciprofloxacin 250 Mg Tablet PO 250 mg Q12HR ANICETO Administration Dabigatran 150 mg 02/18/23 09:00 02/18/23 08:57 Dabigatran Etexilate 150 Mg Capsule PO 150 mg BID ANICETO Administration Dextrose 12.5 gm 02/17/23 22:12 Dextrose 50% 25 Gm/50 Ml Syringe IV PUSH PRN PRN Hypoglycemia Protocol Ezetimibe 10 mg 02/18/23 09:00 02/21/23 10:37 Ezetimibe 10 Mg Tablet PO 10 mg DAILY ANICETO Administration Empagliflozin 25 mg 02/18/23 09:00 02/21/23 10:37 Empagliflozin 25 Mg Tablet PO 25 mg DAILY ANICETO Administration Furosemide 40 mg 02/18/23 09:00 02/21/23 10:38 Furosemide Inj 40 Mg/4 Ml V
[2023-02-21 21:16] LABS: Kappa\\Lambda Light Chains 1.84 (0.26-1.65)
[2023-02-21] MEDS: HEPARIN SODIUM 5,000 UNITS/ML VIAL 5000 UNITS SUB-Q (22:00)
[2023-02-21 22:01] LABS: Glucose Point of Care 265 mg/dl (65-105)
[2023-02-22] VITALS (21 sets, daily range): BP systolic 90–108; BP diastolic 47–70; PULSE 64–130; RESP 17–18; TEMP 36.4–36.7; O2SAT 93–99
[2023-02-22] MEDS: SODIUM CHLORIDE 0.9% IV 500 ML IV CONT (05:20)
--- NOTE | 2023-02-22 05:20 | ECG_ITS ---
Measurements Intervals [place] Rate: 133 P: [place]: 0 QRS: 69 QRSD: 106 T: 258 QT: 359 QTc: 535 Interpretive Statements ATRIAL FIBRILLATION WITH RAPID VENTRICULAR RESPONSE POSSIBLE RIGHT VENTRICULAR CONDUCTION DELAY [RSR (QR) IN V1/V2] ST DEVIATION AND MODERATE T-WAVE ABNORMALITY, CONSIDER ANTEROLATERAL ISCHEMIA [-0.1+ mV T WAVE IN V3-V6] ST DEVIATION AND MODERATE T-WAVE ABNORMALITY, CONSIDER INFERIOR ISCHEMIA [-0.1+ mV T WAVE IN II/aVF] ABNORMAL ECG COMPARED TO ECG 02/17/2023 08:52:53 ATRIAL FIBRILLATION NOW PRESENT Electronically Signed On 02-22-2023 10:40:35 [employer] ARCHITECT by Christo Brennan M.D.
[2023-02-22 05:51] LABS: Hematocrit 34.3 % (42.0-52.0); Hemoglobin 9.8 g/dL (14.0-18.0); Mean Corpuscular HGB Conc 28.6 g/dl (32-36); Mean Corpuscular Hemoglobin 25.8 pg (26-34); Mean Corpuscular Volume 90.3 fl (80-100); Mean Platelet Volume 10.9 fl (7.4-10.4); Platelet Count Result 195 k/mm3 (150-375); Red Cell Distribution Width 22.3 % (11.5-14.5); White Blood Count 7.2 K/mm3 (4.5-10.0)
[2023-02-22 06:05] LABS: Alanine Aminotransferase 415 U/L (6-50); Albumin Level 3.1 g/dL (3.5-5.1); Alkaline Phosphatase 331 U/L (38-126); Anion Gap 10 mmol/L (8-16); Bilirubin,Total 1.3 mg/dL (0.2-1.3); Blood Urea Nitrogen 69 mg/dL (9-20); Calcium 8.1 mg/dL (8.4-10.2); Carbon Dioxide 22 mmol/L (22-30); Chloride 105 mmol/L (98-107); Estimated CRCL calculation 17 ml/min; Estimated Glomerular Filt Rate 15; Glucose 182 mg/dL (65-110); Magnesium 2.4 mg/dL (1.6-2.3); Potassium 3.2 mmol/L (3.4-5.0); Sodium 137 mmol/L (137-145)
[2023-02-22 06:15] LABS: Aspartate Amino Transferase 891 U/L (17-59); Troponin I 0.044 ng/mL (0.000-0.034)
[2023-02-22] MEDS: dilTIAZem HCl INJ 25 MG/5 ML VIAL 10 MG IV PUSH (06:27)
[2023-02-22] MEDS: HEPARIN SODIUM 5,000 UNITS/ML VIAL 5000 UNITS SUB-Q ×3 (06:28→21:29)
--- NOTE | 2023-02-22 06:42 | P.PNCROSS_ITS ---
Event Note Event Note Event Note: I was called to the 2nd floor to see this 77 yo male with male with history of AFIB, who was admitted for nontraumatic intra ventricular hemorrhage and ELIZABETH. he has been on metoprolol twice a day but this was held 2 days ago due to borderline low blood pressure. he does also have history of sleep apnea, he uses CPAP at night but refuses seat. he went into atrial fibrillation with RVR and I was called to see. patient was awake and follows instruction, denies any symptoms. has rapid irregular heartbeat. bilateral lower extremity 2+ edema, decreased breath sound anteriorly bilaterally. EKG showed atrial fibrillation with RVR, patient was given 250 cc of normal saline, blood pressure improved significantly, he was given IV push 10 mg of Cardizem, 100 mg of Lopressor given orally( patient takes 200 mg twice a day). reviewed his labs, he has a rise in liver enzymes which is most likely secondary to hepatic congestion, troponin is borderline elevated, this will be trended. will monitor patient closely and if heart rate rebounds, he will be p laced on a Cardizem drip done transferred to IMU.
[2023-02-22] MEDS: METOPROLOL TARTRATE 50 MG TAB 100 MG PO (06:54)
[2023-02-22 08:28] LABS: Glucose Point of Care 214 mg/dl (65-105)
[2023-02-22] MEDS: INSULIN ASPART (*BKC) 100 UNITS/ML SUB-Q ×3 (08:47→18:40)
[2023-02-22] MEDS: ROSUVASTATIN 10 MG TABLET 40 MG PO (09:02)
[2023-02-22] MEDS: METOPROLOL TARTRATE TAB 25 MG, METOPROLOL TARTRATE TAB 50 MG 75 MG PO (09:02)
[2023-02-22] MEDS: GABAPENTIN 100 MG CAPSULE 200 MG PO ×3 (09:03→17:11)
[2023-02-22] MEDS: EMPAGLIFLOZIN 25 MG TABLET PO (09:03)
[2023-02-22] MEDS: EZETIMIBE 10 MG TABLET PO (09:03)
[2023-02-22] MEDS: POTASSIUM CHLORIDE 20 MEQ ER TABLET 40 MEQ PO (09:03)
[2023-02-22] MEDS: THERAPEUTIC MULTIVITAMINS/MINERALS TAB (*BKC) 1 TABLET PO (09:03)
[2023-02-22] MEDS: FUROSEMIDE INJ 40 MG/4 ML VIAL IV PUSH (09:03)
[2023-02-22] MEDS: CIPROFLOXACIN 250 MG TABLET PO ×2 (09:03→21:29)
[2023-02-22 10:10] LABS: Troponin I 0.039 ng/mL (0.000-0.034)
--- NOTE | 2023-02-22 10:30 | PCOTNOTE ---
The patient treatment was not able to be completed. HR 130 at rest supine. Patient is not appropriate at this time. Discussed with RN. Will plan to continue treatment per plan of care.
[2023-02-22 12:12] LABS: Glucose Point of Care 210 mg/dl (65-105)
--- NOTE | 2023-02-22 13:03 | PM.PNNEP ---
Progress Note: A&P Assessment and Plan (1) ELIZABETH (acute kidney injury): Code(s): N17.9 - Acute kidney failure, unspecified Status: Acute Assessment and Plan: slow improvement noted etiology? suspicion falls on obstruction -- however, despite barrientos catheter placement, creatininie not coming down.... continue to make good urine output evaluation to date: renal ultrasound with left renal atrophy UA with blood and protein urine electrolytes non-prenal CPK low serological testing pending consider renal biopsy? follow trend of repeat labs and UOP (2) Chronic kidney disease, stage 3b: Code(s): N18.32 - Chronic kidney disease, stage 3b Status: Acute Assessment and Plan: baseline creatinine runs around 1.4 - 2.0mg/dl in the last several months suspect secondary to hypertension, diabetes, and age related change (3) Paroxysmal atrial fibrillation: Code(s): I48.0 - Paroxysmal atrial fibrillation Status: Acute Assessment and Plan: rate control strategy Cardiology following holding anticoagulation currently (4) Anemia: Code(s): D64.9 - Anemia, unspecified Status: Acute Assessment and Plan: due to iron deficiency and ELIZABETH along with CKD follow trend of H/H (5) CHF (congestive heart failure): Code(s): I50.9 - Heart failure, unspecified Status: Acute Assessment and Plan: appears right sided based on last Echo good urine output noted (on diuretics) follow volume status (6) Essential (primary) hypertension: Code(s): I10 - Essential (primary) hypertension Status: Acute Assessment and Plan: soft BP/relative hypotension noted BP meds on hold except for metoprolol metoprolol is more for rate control follow trend of hemodynamics (7) Type 2 diabetes mellitus: Qualifiers: Diabetes mellitus [facility] insulin use: without intermodal customer service use Diabetes mellitus complication status: without complication Qualified Code(s): E11.9 - Type 2 diabetes mellitus without complications Code(s): E11.9 - Type 2 diabetes mellitus without complications Status: Chronic Assessment and Plan: follow accu-cheks glycemic control per hospitalists Will continue to follow. Subjective Date/time seen: 02/22/23 13:03 Interval history: Follow-up for acute kidney injury/acute renal failure on chronic kidney disease. Afib with RVR last night but responded to diltiazem and metoprolol administration; renal function continues to slowly improve by recent testing; no apparent distress voiced at the time of my visit. Exam Narrative: General: WD/WN male in NAD Heart: normal S1 and S2; no rub Lungs: clear to auscultation Abdomen: soft, nontender, nondistended, positive bowel sounds Extremities: no cyanosis or clubbing; != edema Skin: no rash Objective Data Vital Signs Vital Signs: Vital Signs Temp Pulse Resp BP Pulse Ox O2 Del Method O2 Flow Rate 02/22/23 13:00 97.6 F 112 H 17 106/62 93 02/22/23 11:45 93 Nasal Cannula 1 02/22/23 11:15 99 Nasal Cannula 2.5 02/22/23 10:00 97 Nasal Cannula 2.5 02/22/23 08:50 113 H 108/58 L 02/22/23 09:02 113 H 02/22/23 06:00 105/60 02/22/23 06:54 120 H 02/22/23 06:51 115 H 102/70 Intake/Output Intake/Output: Intake & Output 02/20/23 02/21/23 02/22/23 02/23/23 23:59 23:59 23:59 23:59 Intake Total 1520 1670 1502 Output Total 3450 3750 4800 7210 Balance -1930 -2080 -3298 -2700 Meds/Results Medications: Active Medications Generic Name Dose Route Start Last Admin Trade Name Freq PRN Reason Stop Dose Admin Ciprofloxacin 250 mg 02/19/23 09:00 02/22/23 21:29 Ciprofloxacin 250 Mg Tablet PO 250 mg Q12HR ANICETO Administration Dextrose 12.5 gm 02/17/23 22:12 Dextrose 50% 25 Gm/50 Ml Syringe IV PUSH PRN PRN Hypoglyce
--- NOTE | 2023-02-22 13:03 | P.PNNP_ITS ---
Progress Note: A&P Assessment and Plan (1) ELIZABETH (acute kidney injury): Code(s): N17.9 - Acute kidney failure, unspecified Status: Acute Assessment and Plan: * slow improvement noted * etiology? * suspicion falls on obstruction -- however, despite barrientos catheter placement, creatininie not coming down.... * continue to make good urine output * evaluation to date: * renal ultrasound with left renal atrophy * UA with blood and protein * urine electrolytes non-prenal * CPK low * serological testing pending * consider renal biopsy? * follow trend of repeat labs and UOP (2) Chronic kidney disease, stage 3b: Code(s): N18.32 - Chronic kidney disease, stage 3b Status: Acute Assessment and Plan: * baseline creatinine runs around 1.4 - 2.0mg/dl in the last several months * suspect secondary to hypertension, diabetes, and age related change (3) Paroxysmal atrial fibrillation: Code(s): I48.0 - Paroxysmal atrial fibrillation Status: Acute Assessment and Plan: * rate control strategy * Cardiology following * holding anticoagulation currently (4) Anemia: Code(s): D64.9 - Anemia, unspecified Status: Acute Assessment and Plan: * due to iron deficiency and ELIZABETH along with CKD * follow trend of H/H (5) CHF (congestive heart failure): Code(s): I50.9 - Heart failure, unspecified Status: Acute Assessment and Plan: * appears right sided based on last Echo * good urine output noted (on diuretics) * follow volume status (6) Essential (primary) hypertension: Code(s): I10 - Essential (primary) hypertension Status: Acute Assessment and Plan: * soft BP/relative hypotension noted * BP meds on hold except for metoprolol * metoprolol is more for rate control * follow trend of hemodynamics (7) Type 2 diabetes mellitus: Qualifiers: Diabetes mellitus draw fire operator insulin use: without draw fire operator use Diabetes mellitus complication status: without complication Qualified Code(s): E11.9 - Type 2 diabetes mellitus without complications Code(s): E11.9 - Type 2 diabetes mellitus without complications Status: Chronic Assessment and Plan: * follow accu-cheks * glycemic control per hospitalists Will continue to follow. Subjective Date/time seen: 02/22/23 13:03 Interval history: Follow-up for acute kidney injury/acute renal failure on chronic kidney disease. Afib with RVR last night but responded to diltiazem and metoprolol administration; renal function continues to slowly improve by recent testing; no apparent distress voiced at the time of my visit. Exam Narrative: General: WD/WN male in NAD Heart: normal S1 and S2; no rub Lungs: clear to auscultation Abdomen: soft, nontender, nondistended, positive bowel sounds Extremities: no cyanosis or clubbing; != edema Skin: no rash Objective Data Vital Signs Vital Signs: Vital Signs Temp Pulse Resp BP Pulse Ox O2 Del Method O2 Flow Rate 02/22/23 13:00 97.6 F 112 H 17 106/62 93 02/22/23 11:45 93 Nasal Cannula 1 02/22/23 11:15 99 Nasal Cannula 2.5 02/22/23 10:00 97 Nasal Cannula 2.5 02/22/23 08:50 113 H 108/58 L 02/22/23 09:02 113 H 02/22/23 06:00 105/60
[2023-02-22 13:57] LABS: Anti Nuclear Antibody Pattern Nuclear, Speckled; Anti Nuclear Antibody Titer >=1:1280 (Negative)
--- NOTE | 2023-02-22 14:46 | PM.PNCARD ---
Progress Note: A&P Assessment and Plan (1) Paroxysmal atrial fibrillation: Code(s): I48.0 - Paroxysmal atrial fibrillation Status: Acute Assessment and Plan: History of atrial fibrillation.? Sotalol discontinued due to prolonged QT.? He has also been on Metoprolol and Amiodarone.? Went into AFIB with RVR overnight, currently heart rates in the low 110s. Therefore, will resume his Metoprolol at a lower dose of 50mg BID (was on 200mg BID at home). If his blood pressures tolerate Metoprolol, can increase dose as needed for additional rate control. Pradaxa is currently on hold for potential renal biopsy, can resume when no longer needing to be held for biospy. Given his renal function, will need to resume Pradaxa at 75mg twice daily. Will need outpatient follow up for consideration for candidacy of a left atrial appendage occluded device when more medically stable. (2) Chronic anticoagulation: Code(s): Z79.01 - ad terminal makeup operator (current) use of anticoagulants Status: Acute Assessment and Plan: Given his renal function, will need to resume Pradaxa at 75mg twice daily. (3) Coronary artery disease: Code(s): I25.10 - Atherosclerotic heart disease of [place] coronary artery without angina pectoris Status: Acute Assessment and Plan: Stable, continue statin (4) Acute on chronic heart failure with preserved ejection fraction (HFpEF): Code(s): I50.33 - Acute on chronic diastolic (congestive) heart failure Status: Acute Assessment and Plan: Predominantly right-sided.? Worsened by worsening renal failure.? Diuretics per Nephrology at this point. Subjective Date/time seen: 02/22/23 14:46 Interval history: Reason for visit: ELIZABETH on CKD/Obstructive Uropathy/Edema HPI: Patient is a 77-year-old male who has had a complex history as of late.? He has been admitted and underwent a cardioversion as recently as December.? In early January he either tripped and fell or passed out.? He hit his head and had a subsequent interventricular hemorrhage and was transferred and treated at [facility].? He was an [facility] for about 3 weeks and then discharged [facility] for another week to 10 days.? He was recently discharged to home.? He has a history of CAD, CKD, hyperlipidemia, atrial fibrillation, diabetes who came to this hospital most recently on 02/17/2023 because of worsening swelling, weakness and shortness of breath.? Patient states that he slid out of his chair onto the floor without any significant trauma.? He was unable to get up.? He was having urinary retention and was found have acute renal failure with a baseline creatinine of 2.0 an initial creatinine upon admission was 4.2.? This is thought to be related to bladder outlet obstruction.? Because of his history, the question from the hospitalist is whether not he needs Pradaxa for anticoagulation at this point.? He has severe edema and states that he was so swollen he could not move his feet.? He has no significant shortness of breath.? No chest pain.? No paroxysmal nocturnal dyspnea, orthopnea, palpitations, syncope or presyncope. Date of service 02/21: Patient tells me that he feels great. No shortness of breath or orthopnea. Still with lower extremity edema. Not a big fan of being on a renal diet. Date of service 02/22: Overnight, patient went into AFIB. Has not received his Metoprolol since 02/20 due to concern for soft blood pressure. Patient was asymptomatic when he went into AFIB. Given Cardizem and Lopressor with improvement. Patient sleeping comfortably at time of my evaluation. Exam Const: General: comfortable and no acute distress Eyes: General: appearance normal, both eyes and all related structures Sclera: sclerae normal Neck: Neck: supple Resp: Effort & Inspection: normal respiratory effort Cardio: Rhythm: abnormal rhythm irregularly irregular Other: Significant bilateral lower extremity edema Skin: General skin
--- NOTE | 2023-02-22 15:06 | PM.IMPN ---
Progress Note: A&P Assessment and Plan (1) Intraventricular hemorrhage: Code(s): I61.5 - Nontraumatic intracerebral hemorrhage, intraventricular Status: Acute (2) Hyperlipidemia: Qualifiers: Hyperlipidemia type: mixed hyperlipidemia Qualified Code(s): E78.2 - Mixed hyperlipidemia Code(s): E78.5 - Hyperlipidemia, unspecified Status: Acute (3) Type 2 diabetes mellitus: Qualifiers: Diabetes mellitus intermediate manager insulin use: without prison use Diabetes mellitus complication status: without complication Qualified Code(s): E11.9 - Type 2 diabetes mellitus without complications Code(s): E11.9 - Type 2 diabetes mellitus without complications Status: Acute (4) Primary hypertension: Code(s): I10 - Essential (primary) hypertension Status: Acute (5) Paroxysmal atrial fibrillation: Code(s): I48.0 - Paroxysmal atrial fibrillation Status: Acute (6) Chronic renal insufficiency, stage IV (severe): Code(s): N18.4 - Chronic kidney disease, stage 4 (severe) Status: Acute Plan 77M w/ PMH CAD s/p stent, CKD stage 3, carotid artery disease s/p carotid endarterectomy, CHF borderline reduced EF, p a fib failed cardioversion on pradaxa, NIDDM, hx of IVH, HTN, HLD, presents with weakness and anasarca. Admitted on 02/17/23 # anasarca - etiology unclear, treat as below - mild improvement # acute decompensated HF borderline reduced EF - echo from [facility] 01/19 EF 45-50%, enlarged RV size, slightly decreased RV function, LAE, GENARO, MAC, MV not well visualized, moderate MR, mid to mod TR, trace to small pericardial effusion - cardiology consulted. cont lasix 40mg iv qday, daily weights, fluid restriction, I/Os - 02/22 lungs improved, still with LE edema likely 2/2 to superimposed hepatic renal issues # ELIZABETH on CKD stage 3 - baseline sCR 1.7-2.0. as high as 4.60 in this admission. now down to 3.9 on 02/22 - nephrology consulted, though to be due to outlet obstruction vs ATN vs low effective arterial volume - cont trending renal function. biopsy still a consideration if it gets worse again # a fib w/ RVR - previously on sotalol. dc'ed 2/2 to prolonged QTc. amiodarone also dc'ed 2/2 elevated LFTs - complicated by low BP due to other issues. cardiology following. metoprolol was on hold for low BP but 02/22 evening restarting 50mg po bid per cardiology. - replacing potassium as well, monitor this - cont tele monitoring - pradaxa on hold # hx HTN - torsemide on hold. cont lasix. metoprolol started at lower dose since his BP's have been soft. giving albumin 50G x to assist with intravascular volume # recent IVH - monitored at [facility], upon discharge his pradaxa was restarted #NIDDM - accuchecks w/ ISS # cellulitis/UTI - cont ciprofloxacin, follow WBC and cultures # stool occult positive - unclear why this was taken. consult GI # transaminitis - he has had elevated LFT as far back as 2020. unclear etiology and it doesn't appear it has been investigated. his LFTs are trending up and it is unclear if this is due to CHF or another cause. - amiodarone since dc'ed. d/c zetia and statin - check ammonia level - liver ultrasound on 02/23 - pending infectious and automimmune hepatitis panel - consult GI FEN: saline lock IV, renal diet, NPO at midnight for liver ultrasound GI prophylaxis: none indicated DVT prophylaxis: heparin TID, restart pradaxa when appropriate Lines: pIV Code Status: Full Code Dispo: stable. PT OT consulted More than 35 minutes spent on chart review, patient interaction and assessment and plan. Subjective Date/time seen: 02/22/23 15:06 Interval history: NAOE. Nurse reports the patient may have been altered, once reporting he was in his house, but at the moment he is A&Ox3 and appears to behave like his normal self. He has no complaints today. Review of Systems Review of Systems: All systems reviewed & are unremarkable except as noted in
[2023-02-22 15:24] LABS: Ammonia < 9 umol/L (9-30)
--- NOTE | 2023-02-22 15:27 | WPDGICN ---
Assessment and Plan Assessment and plan (1) Elevated transaminase level: Code(s): R74.01 - Elevation of levels of liver transaminase levels Status: Acute Assessment and Plan: I think this is from hepatic congestion (he has exacerbation of chf with anasarca in setting of Afib with rvr) will get hepatitis panel recent CT scan showed normal liver (2) Atrial fibrillation with RVR: Code(s): I48.91 - Unspecified atrial fibrillation Status: Acute Assessment and Plan: on treatment (3) Acute on chronic heart failure with preserved ejection fraction (HFpEF): Code(s): I50.33 - Acute on chronic diastolic (congestive) heart failure Status: Acute Assessment and Plan: by cardiology (4) Chronic anemia: Code(s): D64.9 - Anemia, unspecified Status: Acute Assessment and Plan: h/h has been stable probably multifactorial occult blood in stool no overt gib given recent intracraneal bleeding, he will be high risk for anesthesia recommend conservative approach unless obvious GIB (5) Occult blood positive stool: Code(s): R19.5 - Other fecal abnormalities Status: Acute Assessment and Plan: no overt gib (6) Acute on chronic renal failure: Code(s): N17.9 - Acute kidney failure, unspecified; N18.9 - Chronic kidney disease, unspecified Status: Acute GI Consult Note Consult date/time: 02/22/23 15:27 Reason for consult: elevated transaminases, fobt + HPI: Andrei Rao is a 77 year old male with history of CAD, CKD, hyperlipidemia, atrial fibrillation, diabetes (history is obtained from records as he is confused). He has been admitted and underwent a cardioversion as recently as December then early January he either tripped and fell or passed out, developed interventricular hemorrhage and was transferred and treated at [place], he was there for 3 weeks and then discharged [facility] for another 10 days and then finally home. This time admitted to the hospital on 02/17/2023 because of worsening swelling, weakness and shortness of breath.?He had urinary retention and was found have acute renal failure with a baseline creatinine of 2.0 an initial creatinine upon admission was 4.2, hgb ~ 9, normal platelets. Today more elevated transaminases 400-800 (baseline 60-100) but he also had episode of Afib with RVR and CHF, also mild elevation of troponins. Primary checked occult blood in stool and positive but no overt gib. Had recent CT scan that showed normal liver, he has anasarca. Review of Systems Review of Systems: ROS unobtainable: Yes unobtainable due to mental status [facility] Past Medical History Medical History (Updated 02/22/23 @ 15:37 by Christophe Sprague MD) Acute on chronic renal failure Carotid artery disease Chronic anemia Chronic anticoagulation Chronic kidney disease, stage 3 Coronary artery disease Elevated transaminase level Hyperlipidemia Intraventricular hemorrhage Resolved, Discovered on 01/12/23 Occult blood positive stool Paroxysmal atrial fibrillation Type 2 diabetes mellitus Surgical History Surgical History History of cardiac catheterization (2002) History of carotid endarterectomy (05/15/09) History of heart artery stent History of total hip replacement Hx of right cataract extraction Family History Family History Father Cerebrovascular accident Carcinoma of colon Sibling Family history of malignant neoplasm of breast in first degree relative Mother Family history of heart disease in male family member before age 55 Family history of cardiovascular disease Other Diabetes mellitus Hypertension Social History Social History Social History: Surrogate medical decision maker: Razia Petit, niece. Code status: Full co
[2023-02-22] MEDS: METOPROLOL TARTRATE 50 MG TAB PO ×2 (16:02→21:29)
[2023-02-22] MEDS: ALBUMIN HUMAN 25% 25 GM/100 ML 200 ML IVPB (16:03)
[2023-02-22 17:26] LABS: Glucose Point of Care 223 mg/dl (65-105)
[2023-02-22 19:36] LABS: Complement Total CH50 >60 U/mL (31-60)
[2023-02-22 20:55] LABS: Glucose Point of Care 182 mg/dl (65-105)
[2023-02-23] VITALS (11 sets, daily range): BP systolic 93–112; BP diastolic 48–68; PULSE 90–129; RESP 15–18; TEMP 36.2–36.8; O2SAT 91–98
[2023-02-23 05:51] LABS: Basophils Percent Auto 0.8 % (0.2-1.2); Eosinophils Absolute Auto 0.1 K/mm3 (0-0.3); Eosinophils Percent Auto 2.4 % (0-4.4); Hematocrit 33.5 % (42.0-52.0); Hemoglobin 8.5 g/dL (14.0-18.0); Immature Granulocyte Absolute 0.02 K/mm3 (0.00-0.031); Immature Granulocyte Percent A 0.4 % (0-0.5); Lymphocytes Absolute Auto 0.62 K/mm3 (0.9-3.2); Lymphocytes Percent Auto 12.3 % (18.3-44.2); Mean Corpuscular HGB Conc 25.4 g/dl (32-36); Mean Corpuscular Hemoglobin 25.8 pg (26-34); Mean Corpuscular Volume 101.8 fl (80-100); Mean Platelet Volume 11.7 fl (7.4-10.4); Monocytes Absolute Auto 0.4 K/mm3 (0.1-0.6); Monocytes Percent Auto 8.3 % (2.6-8.5); Neutrophils Absolute Auto 3.8 K/mm3 (1.3-6.7); Neutrophils Percent Auto 75.8 % (45.5-73.1); Platelet Count Result 139 k/mm3 (150-375); Red Blood Count 3.29 M/mm3 (4.6-6.20); White Blood Count 5.1 K/mm3 (4.5-10.0)
[2023-02-23 06:06] LABS: Alanine Aminotransferase 372 U/L (6-50); Albumin Level 3.1 g/dL (3.5-5.1); Alkaline Phosphatase 286 U/L (38-126); Anion Gap 10 mmol/L (8-16); Aspartate Amino Transferase 693 U/L (17-59); Bilirubin,Total 1.1 mg/dL (0.2-1.3); Blood Urea Nitrogen 64 mg/dL (9-20); Calcium 8.3 mg/dL (8.4-10.2); Carbon Dioxide 24 mmol/L (22-30); Chloride 105 mmol/L (98-107); Estimated CRCL calculation 18 ml/min; Estimated Glomerular Filt Rate 16; Glucose 146 mg/dL (65-110); Magnesium 2.3 mg/dL (1.6-2.3); Sodium 139 mmol/L (137-145)
[2023-02-23 06:07] LABS: Ammonia 13 umol/L (9-30)
[2023-02-23] MEDS: HEPARIN SODIUM 5,000 UNITS/ML VIAL 5000 UNITS SUB-Q ×3 (06:24→21:41)
[2023-02-23 07:25] LABS: Hepatitis B Surface Antigen Negative (Negative)
[2023-02-23 07:30] LABS: HAV RESULT Negative (Negative); Hepatitis B Core IgM Result Negative (Negative)
[2023-02-23 07:35] LABS: Anisocytosis 2+ (NORMAL); Poikilocytosis 1+ (NORMAL); Target Cells 1+ (NORMAL)
[2023-02-23 07:36] LABS: Ovalocytes 1+ (NORMAL); Schistocytes None Seen (NORMAL)
[2023-02-23 07:42] LABS: Hepatitis C Virus Antibody Negative (Negative)
[2023-02-23 08:30] LABS: Glucose Point of Care 133 mg/dl (65-105)
[2023-02-23] MEDS: THERAPEUTIC MULTIVITAMINS/MINERALS TAB (*BKC) 1 TABLET PO (09:32)
[2023-02-23] MEDS: METOPROLOL TARTRATE 50 MG TAB PO (09:32)
[2023-02-23] MEDS: GABAPENTIN 100 MG CAPSULE 200 MG PO ×3 (09:33→17:36)
[2023-02-23] MEDS: CIPROFLOXACIN 250 MG TABLET PO ×2 (09:33→21:40)
[2023-02-23] MEDS: EMPAGLIFLOZIN 25 MG TABLET PO (09:33)
[2023-02-23] MEDS: POTASSIUM CHLORIDE 20 MEQ ER TABLET 40 MEQ PO (09:33)
[2023-02-23] MEDS: FUROSEMIDE INJ 40 MG/4 ML VIAL IV PUSH (09:34)
--- NOTE | 2023-02-23 12:09 | PM.IMPN ---
Progress Note: A&P Assessment and Plan (1) Acute on chronic renal failure: Code(s): N17.9 - Acute kidney failure, unspecified; N18.9 - Chronic kidney disease, unspecified Status: Acute (2) Occult blood positive stool: Code(s): R19.5 - Other fecal abnormalities Status: Acute (3) Chronic anemia: Code(s): D64.9 - Anemia, unspecified Status: Acute (4) Elevated transaminase level: Code(s): R74.01 - Elevation of levels of liver transaminase levels Status: Acute (5) Intraventricular hemorrhage: Code(s): I61.5 - Nontraumatic intracerebral hemorrhage, intraventricular Status: Acute (6) Type 2 diabetes mellitus: Qualifiers: Diabetes mellitus senior living insulin use: without termite control representative use Diabetes mellitus complication status: without complication Qualified Code(s): E11.9 - Type 2 diabetes mellitus without complications Code(s): E11.9 - Type 2 diabetes mellitus without complications Status: Acute (7) CHF (congestive heart failure): Code(s): I50.9 - Heart failure, unspecified Status: Acute Plan 77M w/ PMH CAD s/p stent, CKD stage 3, carotid artery disease s/p carotid endarterectomy, CHF borderline reduced EF, p a fib failed cardioversion on pradaxa, NIDDM, hx of IVH, HTN, HLD, presents with weakness and anasarca. Admitted on 02/17/23 #weakness - PT/OT consulted # anasarca - etiology unclear, treat as below - mild improvement # acute decompensated HF borderline reduced EF - echo from [place] 01/19 EF 45-50%, enlarged RV size, slightly decreased RV function, LAE, GENARO, MAC, MV not well visualized, moderate MR, mid to mod TR, trace to small pericardial effusion - cardiology consulted. cont lasix 40mg iv qday, daily weights, fluid restriction, I/Os - 02/23, lungs w/ scant crackles. still with LE edema likely 2/2 to superimposed hepatic + renal issues. albumin 3.1 # ELIZABETH on CKD stage 3 - baseline sCR 1.7-2.0. as high as 4.60 in this admission. now down to 3.7 - nephrology consulted, though to be due to outlet obstruction vs ATN vs low effective arterial volume - cont trending renal function. biopsy still a consideration if it gets worse again # a fib w/ RVR - previously on sotalol. dc'ed 2/2 to prolonged QTc. amiodarone also dc'ed 2/2 elevated LFTs - complicated by low BP due to other issues. cardiology following. metoprolol was on hold for low BP but 02/22 evening restarting 50mg po bid per cardiology. 02/23 tachycardia, appreciate cardiology recs. - hypokalemia, cont replacing. cont tele monitor. pradaxa on hold. consider renal dosing when restarting # hx HTN - torsemide on hold. cont lasix. metoprolol started at lower dose since his BP's have been soft. giving albumin 50G x 1 to assist with intravascular volume # recent IVH - monitored at [place], upon discharge his pradaxa was restarted #NIDDM - accuchecks w/ ISS # cellulitis/UTI - cont ciprofloxacin, follow WBC and cultures # stool occult positive - unclear why this was taken. consult GI - 02/23 GI recommend monitoring, no scope for now # transaminitis - he has had elevated LFT as far back as 2020. unclear etiology and it doesn't appear it has been investigated. his LFTs are trending up and it is unclear if this is due to CHF or another cause. - amiodarone since dc'ed. d/c zetia and statin - liver ultrasound on 02/23 demonstrating 9mm pancreatic cysts, f/u as outpatient. - pending infectious and automimmune hepatitis panel - consult GI, no further recommendations FEN: saline lock IV, renal diet GI prophylaxis: none indicated DVT prophylaxis: heparin TID, restart pradaxa when biopsy is no longer a consideration Lines: pIV Code Status: Full Code Dispo: stable. PT OT consulted More than 35 minutes spent on chart review, patient interaction and assessment and plan. Subjective Date/time seen: 02/23/23 12:09 Interval history: NAOE. pt is sitting up in chair with OT. he denies complain
[2023-02-23 12:17] LABS: Glucose Point of Care 206 mg/dl (65-105)
[2023-02-23] MEDS: INSULIN ASPART (*BKC) 100 UNITS/ML SUB-Q ×3 (12:31→21:39)
--- NOTE | 2023-02-23 13:01 | P.PNNP_ITS ---
Progress Note: A&P Assessment and Plan (1) ELIZABETH (acute kidney injury): Code(s): N17.9 - Acute kidney failure, unspecified Status: Acute Assessment and Plan: * slow improvement noted * etiology? * suspicion falls on obstruction -- however, despite barrientos catheter placement, creatininie not coming down.... * continue to make good urine output * evaluation to date: * renal ultrasound with left renal atrophy * UA with blood and protein * urine electrolytes non-prenal * CPK low * serological testing pending * consider renal biopsy? * follow trend of repeat labs and UOP (2) Chronic kidney disease, stage 3b: Code(s): N18.32 - Chronic kidney disease, stage 3b Status: Acute Assessment and Plan: * baseline creatinine runs around 1.4 - 2.0mg/dl in the last several months * suspect secondary to hypertension, diabetes, and age related change (3) Paroxysmal atrial fibrillation: Code(s): I48.0 - Paroxysmal atrial fibrillation Status: Acute Assessment and Plan: * rate control strategy * Cardiology following * holding anticoagulation currently (4) Anemia: Code(s): D64.9 - Anemia, unspecified Status: Acute Assessment and Plan: * due to iron deficiency and ELIZABETH along with CKD * follow trend of H/H (5) CHF (congestive heart failure): Code(s): I50.9 - Heart failure, unspecified Status: Acute Assessment and Plan: * appears right sided based on last Echo * good urine output noted (on diuretics) * follow volume status (6) Essential (primary) hypertension: Code(s): I10 - Essential (primary) hypertension Status: Acute Assessment and Plan: * soft BP/relative hypotension noted * BP meds on hold except for metoprolol * metoprolol is more for rate control * follow trend of hemodynamics (7) Type 2 diabetes mellitus: Qualifiers: Diabetes mellitus terminal manager insulin use: without terminal manager use Diabetes mellitus complication status: without complication Qualified Code(s): E11.9 - Type 2 diabetes mellitus without complications Code(s): E11.9 - Type 2 diabetes mellitus without complications Status: Chronic Assessment and Plan: * follow accu-cheks * glycemic control per hospitalists Will continue to follow. Subjective Date/time seen: 02/23/23 13:01 Interval history: Follow-up for acute kidney injury/acute renal failure on chronic kidney disease. No apparent distress noted at the time of my visit; LFTs still remain elevated but good urine output noted and slow improvement in renal function noted; no other issues/events overnight or earlier today. Exam Narrative: General: WD/WN male in NAD Heart: normal S1 and S2; no rub Lungs: decreased at bases Abdomen: soft, nontender, nondistended, positive bowel sounds Extremities: no cyanosis or clubbing; 1 - 2+ edema Skin: no nodules Objective Data Vital Signs Vital Signs: Vital Signs Temp Pulse Resp BP Pulse Ox O2 Del Method O2 Flow Rate 02/23/23 09:00 116 H 18 95 Nasal Cannula 1 02/23/23 09:32 116 H 02/23/23 06:00 97.2 F L 124 H 18 112/68 95 02/23/23 04:00 112 H 02/23/23 00:00 127 H 02/22/23 20:00 112 H 02/22/23 23:30 95 Nasal Cannula 1 1
--- NOTE | 2023-02-23 13:01 | PM.PNNEP ---
Progress Note: A&P Assessment and Plan (1) ELIZABETH (acute kidney injury): Code(s): N17.9 - Acute kidney failure, unspecified Status: Acute Assessment and Plan: slow improvement noted etiology? suspicion falls on obstruction -- however, despite barrientos catheter placement, creatininie not coming down.... continue to make good urine output evaluation to date: renal ultrasound with left renal atrophy UA with blood and protein urine electrolytes non-prenal CPK low serological testing pending consider renal biopsy? follow trend of repeat labs and UOP (2) Chronic kidney disease, stage 3b: Code(s): N18.32 - Chronic kidney disease, stage 3b Status: Acute Assessment and Plan: baseline creatinine runs around 1.4 - 2.0mg/dl in the last several months suspect secondary to hypertension, diabetes, and age related change (3) Paroxysmal atrial fibrillation: Code(s): I48.0 - Paroxysmal atrial fibrillation Status: Acute Assessment and Plan: rate control strategy Cardiology following holding anticoagulation currently (4) Anemia: Code(s): D64.9 - Anemia, unspecified Status: Acute Assessment and Plan: due to iron deficiency and ELIZABETH along with CKD follow trend of H/H (5) CHF (congestive heart failure): Code(s): I50.9 - Heart failure, unspecified Status: Acute Assessment and Plan: appears right sided based on last Echo good urine output noted (on diuretics) follow volume status (6) Essential (primary) hypertension: Code(s): I10 - Essential (primary) hypertension Status: Acute Assessment and Plan: soft BP/relative hypotension noted BP meds on hold except for metoprolol metoprolol is more for rate control follow trend of hemodynamics (7) Type 2 diabetes mellitus: Qualifiers: Diabetes mellitus half-way insulin use: without ferry terminal supervisor use Diabetes mellitus complication status: without complication Qualified Code(s): E11.9 - Type 2 diabetes mellitus without complications Code(s): E11.9 - Type 2 diabetes mellitus without complications Status: Chronic Assessment and Plan: follow accu-cheks glycemic control per hospitalists Will continue to follow. Subjective Date/time seen: 02/23/23 13:01 Interval history: Follow-up for acute kidney injury/acute renal failure on chronic kidney disease. No apparent distress noted at the time of my visit; LFTs still remain elevated but good urine output noted and slow improvement in renal function noted; no other issues/events overnight or earlier today. Exam Narrative: General: WD/WN male in NAD Heart: normal S1 and S2; no rub Lungs: decreased at bases Abdomen: soft, nontender, nondistended, positive bowel sounds Extremities: no cyanosis or clubbing; 1 - 2+ edema Skin: no nodules Objective Data Vital Signs Vital Signs: Vital Signs Temp Pulse Resp BP Pulse Ox O2 Del Method O2 Flow Rate 02/23/23 09:00 116 H 18 95 Nasal Cannula 1 02/23/23 09:32 116 H 02/23/23 06:00 97.2 F L 124 H 18 112/68 95 02/23/23 04:00 112 H 02/23/23 00:00 127 H 02/22/23 20:00 112 H 02/22/23 23:30 95 Nasal Cannula 1 02/22/23 21:30 Nasal Cannula 1 02/22/23 21:29 124 H 02/22/23 20:14 98.1 F 125 H 18 103/47 L 95 02/22/23 16:00 117 H 02/22/23 16:02 130 H 02/22/23 16:01 130 H 100/56 L 97 02/22/23 14:00 97.6 F 112 H 17 106/62 93 Intake/Output Intake/Output: Intake & Output 02/20/23 02/21/23 02/22/23 02/23/23 23:59 23:59 23:59 23:59 Intake Total 1520 1670 1702 740 Output Total 3450 3750 4800 2700 -1929 -0 -3098 -1960 Meds/Results Medications: Active Medications Generic Name Dose Route Start Last Admin Trade Name Freq PRN Reason Stop Dose Admin Ciprofloxacin 250 mg 02/19/23 0
--- NOTE | 2023-02-23 14:45 | PM.PNCARD ---
Progress Note: A&P Assessment and Plan (1) Paroxysmal atrial fibrillation: Code(s): I48.0 - Paroxysmal atrial fibrillation Status: Acute Assessment and Plan: History of atrial fibrillation.? Sotalol discontinued due to prolonged QT.? He has also been on Metoprolol and Amiodarone.? Went into AFIB with RVR earlier in hospitalization, currently heart rates in the 120's - 130's. Therefore, will increase Metoprolol to 75mg BID (was on 200mg BID at home). If his blood pressures tolerate Metoprolol, can increase dose as needed for additional rate control. Pradaxa is currently on hold for potential renal biopsy, can resume when no longer needing to be held for biospy. Given his renal function, will need to resume Pradaxa at 75mg twice daily. Will need outpatient follow up for consideration for candidacy of a left atrial appendage occluded device when more medically stable. 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 (3) Coronary artery disease: Code(s): I25.10 - Atherosclerotic heart disease of ione coronary artery without angina pectoris Status: Acute Assessment and Plan: Stable, continue statin (4) Acute on chronic heart failure with preserved ejection fraction (HFpEF): Code(s): I50.33 - Acute on chronic diastolic (congestive) heart failure Status: Acute Assessment and Plan: Predominantly right-sided.? Worsened by worsening renal failure.? Diuretics per Nephrology at this point. Subjective Date/time seen: 02/23/23 14:45 Interval history: Cardiology follow up for AF, CHF State he is feeling well today. Does not have any specific complaints. Review of Systems Review of Systems: All systems reviewed & are unremarkable except as noted in HPI and below Exam Const: General: comfortable and no acute distress HENMT: Face/Nose/Sinus: Normal nares present Mouth: Yes moist mucous membranes Eyes: General: appearance normal, both eyes and all related structures Sclera: sclerae normal Neck: Neck: supple and no JVD Chest: Other: No reproducible chest wall pain to palpation Resp: Effort & Inspection: normal respiratory effort Auscultation: rales (bilateral bases) and diminished lung sounds Cardio: Rate: tachycardic Rhythm: regular rhythm and abnormal rhythm irregularly irregular Heart sounds: no murmurs Other: Significant bilateral lower extremity edema GI: Inspection: non-distended Urinary Catheter: Urinary Catheter: patent and draining Skin: General skin exam: normal color and rashes (Stasis changes noted bilateral lower extremity) Rashes: rashes noted (Stasis changes noted bilateral lower extremity) Neuro: General: No confusion Speech: normal speech and Abnormal speech present Sensory Exam: normal sensation Extrem: General: edema Other: 2+ bilateral lower extremity edema Psych: Mental Status: mental status grossly normal Affect: normal affect Objective Data Vital Signs Vital Signs: Vital Signs - 24 hr 02/22/23 16:01 02/22/23 16:02 02/22/23 16:00 Temperature Pulse Rate 130 H 130 H 117 H Respiratory Rate Blood Pressure 100/56 L Pulse Oximetry 97 Oxygen Delivery Oxygen Flow Rate 02/22/23 20:14 02/22/23 21:29 02/22/23 21:30 Temperature 36.7 C Pulse Rate 125 H 124 H Respiratory Rate 18 Blood Pressure 103/47 L Pulse Oximetry 95 Oxygen Delivery Nasal Cannula Oxygen Flow Rate 1 02/22/23 23:30 02/22/23 20:00 02/23/23 00:00 Temperature Pulse Rate 112 H 127 H Respiratory Rate Blood Pressure Pulse Oximetry 95 Oxygen Delivery Nasal Cannula Oxygen Flow Rate 1 02/23/23 04:00 02/23/23 06:00 02/23/23 09:32 Temperature 36.2 C L Pulse Rate 112 H 124 H 116 H Respiratory Rate 18 Blood Press
--- NOTE | 2023-02-23 15:55 | WPDGIPROGNO ---
Progress Note: A&P Assessment and Plan (1) Elevated transaminase level: Code(s): R74.01 - Elevation of levels of liver transaminase levels Status: Acute Assessment and Plan: slowly trending down this can be explained by rt sided heart failure, ckd, etc liver ultrasound reviewed hepatitis negative [place] (2) Chronic anemia: Code(s): D64.9 - Anemia, unspecified Status: Acute Assessment and Plan: no overt gib last colonoscopy about 10 years ago but he is not in good shape to get one, plus had intracraneal bleeding recommend conservative approach family member even asking if in near future he may be a candidate for comfort mostly (3) Occult blood positive stool: Code(s): R19.5 - Other fecal abnormalities Status: Acute (4) Acute on chronic renal failure: Code(s): N17.9 - Acute kidney failure, unspecified; N18.9 - Chronic kidney disease, unspecified Status: Acute Assessment and Plan: by nephrology (5) Intraventricular hemorrhage: Code(s): I61.5 - Nontraumatic intracerebral hemorrhage, intraventricular Status: Acute (6) Paroxysmal atrial fibrillation: Code(s): I48.0 - Paroxysmal atrial fibrillation Status: Acute (7) Acute on chronic heart failure with preserved ejection fraction (HFpEF): Code(s): I50.33 - Acute on chronic diastolic (congestive) heart failure Status: Acute Subjective Date/time seen: 02/23/23 15:55 Interval history: he is talking more today and not as confused, family members at bedside Review of Systems Review of Systems: All systems reviewed & are unremarkable except as noted in HPI and below Exam Const: Other: awake and alert, less confused HENMT: Face/Nose/Sinus: Normal nares present Eyes: General: appearance normal, both eyes and all related structures Sclera: sclerae normal Neck: Neck: supple Resp: Auscultation: rales and no wheezes Cardio: Rhythm: abnormal rhythm irregularly irregular Other: Significant bilateral lower extremity edema GI: GI Palp: Yes Soft to palpation and No Tenderness to palpation present (GI) Auscultation: normal bowel sounds Skin: Other: chronic venous stasis legs Neuro: Speech: normal speech Other: awake and alert but confused Extrem: General: pedal edema Psych: Mental Status: mental status grossly normal Affect: normal affect Objective Data Vital Signs Vital Signs: Vital Signs - 24 hr 02/22/23 16:01 02/22/23 16:02 02/22/23 16:00 Temperature Pulse Rate 130 H 130 H 117 H Respiratory Rate Blood Pressure 100/56 L Pulse Oximetry 97 Oxygen Delivery Oxygen Flow Rate 02/22/23 20:14 02/22/23 21:29 02/22/23 21:30 Temperature 98.1 F Pulse Rate 125 H 124 H Respiratory Rate 18 Blood Pressure 103/47 L Pulse Oximetry 95 Oxygen Delivery Nasal Cannula Oxygen Flow Rate 1 02/22/23 23:30 02/22/23 20:00 02/23/23 00:00 Temperature Pulse Rate 112 H 127 H Respiratory Rate Blood Pressure Pulse Oximetry 95 Oxygen Delivery Nasal Cannula Oxygen Flow Rate 1 02/23/23 04:00 02/23/23 06:00 02/23/23 09:32 Temperature 97.2 F L Pulse Rate 112 H 124 H 116 H Respiratory Rate 18 Blood Pressure 112/68 Pulse Oximetry 95 Oxygen Delivery Oxygen Flow Rate 02/23/23 09:00 02/23/23 08:00 02/23/23 12:00 Temperature Pulse Rate 116 H 116 H 125 H Respiratory Rate 18 Blood Pressure Pulse Oximetry 95 Oxygen Delivery Nasal Cannula Oxygen Flow Rate 1 02/23/23 14:00 Temperature 97.8 F Pulse Rate 90 Respiratory Rate 17 Blood Pressure 93/48 L Pulse Oximetry 91 Oxygen Delivery Oxygen Flow Rate Intake/Output Intake/Output: Intake & Output 02/20/23 02/21/23 02/22/23 02/23/23 23:59 23:59 23:59 23:59 Intake Total 1520 1670 1702 740 Output Total 2090 3750 4800 2700 [facility] -1930 -2080 -3098 -1960 Meds/Results Medi
[2023-02-23 17:14] LABS: Glucose Point of Care 233 mg/dl (65-105)
[2023-02-23 20:39] LABS: Glucose Point of Care 293 mg/dl (65-105)
[2023-02-23] MEDS: METOPROLOL TARTRATE 25 MG TABLET 75 MG PO (21:40)
[2023-02-24] VITALS (17 sets, daily range): BP systolic 98–126; BP diastolic 60–89; PULSE 72–130; RESP 14–18; TEMP 36.1–36.5; O2SAT 92–98
[2023-02-24] MEDS: HEPARIN SODIUM 5,000 UNITS/ML VIAL 5000 UNITS SUB-Q ×3 (05:00→20:53)
[2023-02-24 05:51] LABS: Basophils Percent Auto 0.5 % (0.2-1.2); Eosinophils Absolute Auto 0.2 K/mm3 (0-0.3); Eosinophils Percent Auto 2.9 % (0-4.4); Hematocrit 31.6 % (42.0-52.0); Hemoglobin 8.8 g/dL (14.0-18.0); Immature Granulocyte Absolute 0.02 K/mm3 (0.00-0.031); Immature Granulocyte Percent A 0.4 % (0-0.5); Lymphocytes Absolute Auto 0.78 K/mm3 (0.9-3.2); Lymphocytes Percent Auto 14.2 % (18.3-44.2); Mean Corpuscular HGB Conc 27.8 g/dl (32-36); Mean Corpuscular Hemoglobin 25.2 pg (26-34); Mean Corpuscular Volume 90.5 fl (80-100); Mean Platelet Volume 10.7 fl (7.4-10.4); Monocytes Absolute Auto 0.6 K/mm3 (0.1-0.6); Monocytes Percent Auto 10.3 % (2.6-8.5); Neutrophils Percent Auto 71.7 % (45.5-73.1); Platelet Count Result 183 k/mm3 (150-375); Red Blood Count 3.49 M/mm3 (4.6-6.20); Red Cell Distribution Width 22.8 % (11.5-14.5); White Blood Count 5.5 K/mm3 (4.5-10.0)
[2023-02-24 06:06] LABS: Alanine Aminotransferase 388 U/L (6-50); Albumin Level 3.1 g/dL (3.5-5.1); Alkaline Phosphatase 329 U/L (38-126); Anion Gap 7 mmol/L (8-16); Aspartate Amino Transferase 638 U/L (17-59); Bilirubin,Total 1.2 mg/dL (0.2-1.3); Blood Urea Nitrogen 59 mg/dL (9-20); Calcium 8.6 mg/dL (8.4-10.2); Carbon Dioxide 28 mmol/L (22-30); Chloride 106 mmol/L (98-107); Estimated CRCL calculation 17 ml/min; Estimated Glomerular Filt Rate 16; Glucose 181 mg/dL (65-110); Magnesium 2.2 mg/dL (1.6-2.3); Potassium 3.3 mmol/L (3.4-5.0); Sodium 141 mmol/L (137-145)
[2023-02-24 07:42] LABS: Platelet Estimate Adequate (Adequate)
[2023-02-24 07:43] LABS: Anisocytosis 1+ (NORMAL); Hypochromasia 1+ (NORMAL); Schistocytes None Seen (NORMAL); Target Cells 1+ (NORMAL)
--- NOTE | 2023-02-24 07:57 | PM.IMPN ---
Progress Note: A&P Assessment and Plan (1) Acute on chronic renal failure: Code(s): N17.9 - Acute kidney failure, unspecified; N18.9 - Chronic kidney disease, unspecified Status: Acute (2) Occult blood positive stool: Code(s): R19.5 - Other fecal abnormalities Status: Acute (3) Chronic anemia: Code(s): D64.9 - Anemia, unspecified Status: Acute (4) Elevated transaminase level: Code(s): R74.01 - Elevation of levels of liver transaminase levels Status: Acute (5) Intraventricular hemorrhage: Code(s): I61.5 - Nontraumatic intracerebral hemorrhage, intraventricular Status: Acute (6) Type 2 diabetes mellitus: Qualifiers: Diabetes mellitus complication status: without complication Diabetes mellitus jail insulin use: without jail use Qualified Code(s): E11.9 - Type 2 diabetes mellitus without complications Code(s): E11.9 - Type 2 diabetes mellitus without complications Status: Acute (7) CHF (congestive heart failure): Code(s): I50.9 - Heart failure, unspecified Status: Acute Plan 77M w/ PMH CAD s/p stent, CKD stage 3, carotid artery disease s/p carotid endarterectomy, CHF borderline reduced EF, p a fib failed cardioversion on pradaxa, NIDDM, hx of IVH, HTN, HLD, presents with weakness and anasarca. Admitted on 02/17/23 #weakness - PT/OT consulted # anasarca - etiology unclear, treat as below - mild improvement # acute decompensated HF borderline reduced EF - echo from [place] 01/19 EF 45-50%, enlarged RV size, slightly decreased RV function, LAE, GENARO, MAC, MV not well visualized, moderate MR, mid to mod TR, trace to small pericardial effusion - cardiology consulted. cont lasix 40mg iv qday, daily weights, fluid restriction, I/Os - 02/23, lungs w/ scant crackles. still with LE edema likely 2/2 to superimposed hepatic + renal issues. albumin 3.1 BNP 7470 # ELIZABETH on CKD stage 3 - baseline sCR 1.7-2.0. Peaked to 4.60 in this admission. now trending down - nephrology consulted, though to be due to outlet obstruction vs ATN vs low effective arterial volume - cont trending renal function. biopsy still a consideration if it gets worse again CK normal proteinuria: 2.35 mg/mg TONIA screen is positive with elevaed CH50, noraml C3 and C4 Elevated kappa/lambda ratio ERNIE urine and serum pending # a fib w/ RVR - previously on sotalol. dc'ed 2/ to prolonged QTc. amiodarone also dc'ed 2/2 elevated LFTs - complicated by low BP due to other issues. cardiology following. metoprolol was on hold for low BP but 02/22 evening restarting 50mg po bid per cardiology. 02/23 tachycardia, appreciate cardiology recs. - hypokalemia, cont replacing. cont tele monitor. pradaxa on hold. consider renal dosing when restarting tsh is normal # hx HTN - torsemide on hold. cont lasix iv. metoprolol started at lower dose since his BP's have been soft. giving albumin 50G x 1 to assist with intravascular volume # recent IVH 01/2023 - monitored at [place], upon discharge his pradaxa was restarted #NIDDM - accuchecks w/ ISS # cellulitis/UTI - cont ciprofloxacin, follow WBC and cultures # stool occult positive - unclear why this was taken. consult GI - 02/23 GI recommend monitoring, no scope for now h and h remains stable # transaminitis - he has had elevated LFT as far back as 2020. unclear etiology and it doesn't appear it has been investigated. his LFTs are trending up and it is unclear if this is due to CHF or another cause. - amiodarone since dc'ed. d/c zetia and statin - liver ultrasound on 02/23 demonstrating 9mm pancreatic cysts, f/u as outpatient. - pending infectious and automimmune hepatitis panel - consult GI, no further recommendations lft trending downwards now hepatitis panel neative FEN: saline lock IV, renal diet GI prophylaxis: none indicated DVT prophylaxis: heparin TID, restart pradaxa when biopsy is no longer a consideration Lines: pIV Code St
--- NOTE | 2023-02-24 08:09 | PCNWS ---
Weekly nutritional screen. Patient is tolerating current diet with adequate intake. No weight loss reported. Patient has been educated on current diet order. No nutritional needs at this time.
[2023-02-24 08:10] LABS: Glucose Point of Care 163 mg/dl (65-105)
--- NOTE | 2023-02-24 09:08 | PM.PNCARD ---
Progress Note: A&P Assessment and Plan (1) Paroxysmal atrial fibrillation: Code(s): I48.0 - Paroxysmal atrial fibrillation Status: Acute Assessment and Plan: History of atrial fibrillation.? Sotalol discontinued due to prolonged QT.? He has also been on Metoprolol and Amiodarone.? Went into AFIB with RVR earlier in hospitalization, currently heart rates in the 120's - 130's. Therefore, will increase Metoprolol to 100mg BID (was on 200mg BID at home) and give an extra dose of 25mg p.o. x1 now. If his blood pressures tolerate Metoprolol, can increase dose as needed for additional rate control. Pradaxa is currently on hold for potential renal biopsy, can resume when no longer needing to be held for biospy. Given his renal function, will need to resume Pradaxa at 75mg twice daily. Since no plan for biopsy, should be ok to resume a/c - will discuss with hospitalist Will need outpatient follow up for consideration for candidacy of a left atrial appendage occluded device when more medically stable. 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 (3) Coronary artery disease: Code(s): I25.10 - Atherosclerotic heart disease of [place] coronary artery without angina pectoris Status: Acute Assessment and Plan: Stable, continue statin (4) Acute on chronic heart failure with preserved ejection fraction (HFpEF): Code(s): I50.33 - Acute on chronic diastolic (congestive) heart failure Status: Acute Assessment and Plan: Predominantly right-sided.? Worsened by worsening renal failure.? Diuretics per Nephrology at this point. Plan Spoke with hospitalist - possible renal biopsy, so plan to continue to hold a/c until at least Monday. Subjective Date/time seen: 02/24/23 09:08 Interval history: Cardiology follow up for AF, CHF State he is feeling well today. Does not have any specific complaints. Date of service 02/24/23: Heart rate remains elevated despite increasing metoprolol yesterday. He continues to deny feeling any palpitations. Review of Systems Review of Systems: All systems reviewed & are unremarkable except as noted in HPI and below Constitutional: Constitutional: Denies excessive sweating and Reports weakness Eyes: Eyes: Denies blurry vision ENT: Denies epistaxis Cardiovascular: Cardiovascular: Denies chest pain, Reports pedal edema and Reports leg edema Respiratory: Respiratory: Denies wheezing Gastrointestinal: Gastrointestinal: Denies abdominal pain Genitourinary: Genitourinary: Denies hematuria Musculoskeletal: Musculoskeletal: Denies back pain Integumentary/Breasts: Skin/Breast: Reports rash Neurologic: Reports Abnormal speech present, Denies confusion and Reports weakness Psychiatric: Psychiatric: Denies anxiety and Denies confusion Endocrine: Endocrine: Denies excessive sweating Hematologic/Lymphatic: Hematologic/Lymphatic: Denies easy bleeding Allergic/Immunologic: Allergic/Immunologic: Denies GI upset with certain foods and Denies wheezing Exam Narrative: Awake alert oriented appears stated age Const: General: comfortable and no acute distress; No confusion Orientation/consciousness: No confusion HENMT: Face/Nose/Sinus: Normal nares present Mouth: Yes moist mucous membranes Eyes: General: appearance normal, both eyes and all related structures Sclera: sclerae normal Neck: Neck: supple and no JVD Chest: Other: No reproducible chest wall pain to palpation Resp: Effort & Inspection: normal respiratory effort Auscultation: diminished lung sounds Cardio: Rate: tachycardic Rhythm: regular rhythm and abnormal rhythm irregularly irregular Heart sounds: no murmurs Other: Significant bilateral lower extremity edema GI: Inspection: non-distende
[2023-02-24] MEDS: POTASSIUM CHLORIDE 20 MEQ ER TABLET 40 MEQ PO (09:31)
[2023-02-24] MEDS: THERAPEUTIC MULTIVITAMINS/MINERALS TAB (*BKC) 1 TABLET PO (09:32)
[2023-02-24] MEDS: GABAPENTIN 100 MG CAPSULE 200 MG PO ×3 (09:32→17:23)
[2023-02-24] MEDS: CIPROFLOXACIN 250 MG TABLET PO ×2 (09:32→20:50)
[2023-02-24] MEDS: EMPAGLIFLOZIN 25 MG TABLET PO (09:32)
[2023-02-24] MEDS: METOPROLOL TARTRATE 25 MG TABLET 75 MG PO (09:32)
[2023-02-24] MEDS: FUROSEMIDE INJ 40 MG/4 ML VIAL IV PUSH (09:33)
--- NOTE | 2023-02-24 09:35 | P.PNNP_ITS ---
Progress Note: A&P Assessment and Plan (1) ELIZABETH (acute kidney injury): Code(s): N17.9 - Acute kidney failure, unspecified Status: Acute Assessment and Plan: * slow improvement noted * etiology? * suspicion falls on obstruction -- however, despite barrientos catheter placement, creatininie not coming down.... * continue to make good urine output * evaluation to date: * renal ultrasound with left renal atrophy * UA with blood and protein * urine electrolytes non-prenal * CPK low * serological testing pending * consider renal biopsy? * since creatinine improving, will follow trend for a few more days... * follow trend of repeat labs and UOP (2) Chronic kidney disease, stage 3b: Code(s): N18.32 - Chronic kidney disease, stage 3b Status: Acute Assessment and Plan: * baseline creatinine runs around 1.4 - 2.0mg/dl in the last several months * suspect secondary to hypertension, diabetes, and age related change (3) Paroxysmal atrial fibrillation: Code(s): I48.0 - Paroxysmal atrial fibrillation Status: Acute Assessment and Plan: * rate control strategy * Cardiology following * holding anticoagulation currently (4) Anemia: Code(s): D64.9 - Anemia, unspecified Status: Acute Assessment and Plan: * due to iron deficiency and ELIZABETH along with CKD * follow trend of H/H (5) CHF (congestive heart failure): Code(s): I50.9 - Heart failure, unspecified Status: Acute Assessment and Plan: * appears right sided based on last Echo * good urine output noted (on diuretics) * follow volume status (6) Essential (primary) hypertension: Code(s): I10 - Essential (primary) hypertension Status: Acute Assessment and Plan: * soft BP/relative hypotension noted * BP meds on hold except for metoprolol * metoprolol is more for rate control * follow trend of hemodynamics (7) Type 2 diabetes mellitus: Qualifiers: Diabetes mellitus penitentiary insulin use: without continuous churn buttermaker use Diabetes mellitus complication status: without complication Qualified Code(s): E11.9 - Type 2 diabetes mellitus without complications Code(s): E11.9 - Type 2 diabetes mellitus without complications Status: Chronic Assessment and Plan: * follow accu-cheks * glycemic control per hospitalists Will continue to follow. Subjective Date/time seen: 12/15/23 09:35 Interval history: Follow-up for acute kidney injury/acute renal failure on chronic kidney disease. No new issues or problems to report; continues to make good urine output and renal function/creatinine is improving albeit slowly; no apparent distress voiced. Exam Narrative: General: WD/WN male in NAD Heart: normal S1 and S2; no rub Lungs: decreased at bases Abdomen: soft, nontender, nondistended, positive bowel sounds Extremities: no cyanosis or clubbing; 1 - 2+ edema Skin: warm and dry Objective Data Vital Signs Vital Signs: Vital Signs Temp Pulse Resp BP Pulse Ox O2 Del Method O2 Flow Rate 02/24/23 09:26 98 Nasal Cannula 1 02/24/23 09:32 72 02/24/23 09:31 72 126/89 02/24/23 05:45 97.4 F L 124 H 14 106/68 93 02/24/23 04:00 112 H 02/24/23 00:10 111/76 02/24/23 00:00 127 H
--- NOTE | 2023-02-24 09:35 | PM.PNNEP ---
Progress Note: A&P Assessment and Plan (1) ELIZABETH (acute kidney injury): Code(s): N17.9 - Acute kidney failure, unspecified Status: Acute Assessment and Plan: slow improvement noted etiology? suspicion falls on obstruction -- however, despite barrientos catheter placement, creatininie not coming down.... continue to make good urine output evaluation to date: renal ultrasound with left renal atrophy UA with blood and protein urine electrolytes non-prenal CPK low serological testing pending consider renal biopsy? since creatinine improving, will follow trend for a few more days... follow trend of repeat labs and UOP (2) Chronic kidney disease, stage 3b: Code(s): N18.32 - Chronic kidney disease, stage 3b Status: Acute Assessment and Plan: baseline creatinine runs around 1.4 - 2.0mg/dl in the last several months suspect secondary to hypertension, diabetes, and age related change (3) Paroxysmal atrial fibrillation: Code(s): I48.0 - Paroxysmal atrial fibrillation Status: Acute Assessment and Plan: rate control strategy Cardiology following holding anticoagulation currently (4) Anemia: Code(s): D64.9 - Anemia, unspecified Status: Acute Assessment and Plan: due to iron deficiency and ELIZABETH along with CKD follow trend of H/H (5) CHF (congestive heart failure): Code(s): I50.9 - Heart failure, unspecified Status: Acute Assessment and Plan: appears right sided based on last Echo good urine output noted (on diuretics) follow volume status (6) Essential (primary) hypertension: Code(s): I10 - Essential (primary) hypertension Status: Acute Assessment and Plan: soft BP/relative hypotension noted BP meds on hold except for metoprolol metoprolol is more for rate control follow trend of hemodynamics (7) Type 2 diabetes mellitus: Qualifiers: Diabetes mellitus retirement insulin use: without assistant terminal manager use Diabetes mellitus complication status: without complication Qualified Code(s): E11.9 - Type 2 diabetes mellitus without complications Code(s): E11.9 - Type 2 diabetes mellitus without complications Status: Chronic Assessment and Plan: follow accu-cheks glycemic control per hospitalists Will continue to follow. Subjective Date/time seen: 02/24/23 09:35 Interval history: Follow-up for acute kidney injury/acute renal failure on chronic kidney disease. No new issues or problems to report; continues to make good urine output and renal function/creatinine is improving albeit slowly; no apparent distress voiced. Exam Narrative: General: WD/WN male in NAD Heart: normal S1 and S2; no rub Lungs: decreased at bases Abdomen: soft, nontender, nondistended, positive bowel sounds Extremities: no cyanosis or clubbing; 1 - 2+ edema Skin: warm and dry Objective Data Vital Signs Vital Signs: Vital Signs Temp Pulse Resp BP Pulse Ox O2 Del Method O2 Flow Rate 02/24/23 09:26 98 Nasal Cannula 1 02/24/23 09:32 72 02/24/23 09:31 72 126/89 02/24/23 05:45 97.4 F L 124 H 14 106/68 93 02/24/23 04:00 112 H 02/24/23 00:10 111/76 02/24/23 00:00 127 H 02/23/23 20:00 129 H 02/23/23 21:40 Nasal Cannula 1 02/23/23 21:40 125 H 02/23/23 20:42 98.2 F 113 H 15 101/49 L 98 Intake/Output Intake/Output: Intake & Output 02/21/23 02/22/23 02/23/23 02/24/23 23:59 23:59 23:59 23:59 Intake Total 1670 1702 1850 480 Output Total 3750 4800 4300 2300 Balance -2080 -3098 -2450 -1820 Meds/Results Medications: Active Medications Generic Name Dose Route Start Last Admin Trade Name Freq PRN Reason Stop Dose Admin Ciprofloxacin 250 mg 02/19/23 09:00 02/24/23 09:32 Ciprofloxacin 250 Mg Tablet PO 250 mg Q12HR ANICETO Administration Dextrose 12.5 g
[2023-02-24] MEDS: METOPROLOL TARTRATE 25 MG TABLET PO (11:15)
[2023-02-24 12:04] LABS: Glucose Point of Care 202 mg/dl (65-105)
[2023-02-24] MEDS: INSULIN ASPART (*BKC) 100 UNITS/ML SUB-Q ×3 (12:06→21:01)
[2023-02-24 17:20] LABS: Glucose Point of Care 283 mg/dl (65-105)
[2023-02-24] MEDS: METOPROLOL TARTRATE 50 MG TAB 100 MG PO (20:50)
[2023-02-24 20:51] LABS: Glucose Point of Care 242 mg/dl (65-105)
[2023-02-24 20:51] LABS: Glucose Point of Care 264 mg/dl (65-105)
[2023-02-25] VITALS (12 sets, daily range): BP systolic 93–117; BP diastolic 49–91; PULSE 111–134; RESP 12–18; TEMP 36.2–36.7; O2SAT 92–96
[2023-02-25 05:14] LABS: Basophils Percent Auto 0.7 % (0.2-1.2); Eosinophils Absolute Auto 0.2 K/mm3 (0-0.3); Eosinophils Percent Auto 3.1 % (0-4.4); Hematocrit 30.3 % (42.0-52.0); Hemoglobin 8.5 g/dL (14.0-18.0); Immature Granulocyte Absolute 0.02 K/mm3 (0.00-0.031); Immature Granulocyte Percent A 0.4 % (0-0.5); Lymphocytes Absolute Auto 0.85 K/mm3 (0.9-3.2); Lymphocytes Percent Auto 15.4 % (18.3-44.2); Mean Corpuscular HGB Conc 28.1 g/dl (32-36); Mean Corpuscular Hemoglobin 25.2 pg (26-34); Mean Corpuscular Volume 89.9 fl (80-100); Monocytes Absolute Auto 0.5 K/mm3 (0.1-0.6); Monocytes Percent Auto 9.6 % (2.6-8.5); Neutrophils Absolute Auto 3.9 K/mm3 (1.3-6.7); Neutrophils Percent Auto 70.8 % (45.5-73.1); Platelet Count Result 190 k/mm3 (150-375); Red Blood Count 3.37 M/mm3 (4.6-6.20); Red Cell Distribution Width 22.9 % (11.5-14.5); White Blood Count 5.5 K/mm3 (4.5-10.0)
[2023-02-25 05:26] LABS: Alanine Aminotransferase 315 U/L (6-50); Alkaline Phosphatase 291 U/L (38-126); Anion Gap 6 mmol/L (8-16); Aspartate Amino Transferase 369 U/L (17-59); Bilirubin,Total 1.1 mg/dL (0.2-1.3); Blood Urea Nitrogen 56 mg/dL (9-20); Calcium 8.4 mg/dL (8.4-10.2); Carbon Dioxide 28 mmol/L (22-30); Chloride 106 mmol/L (98-107); Estimated CRCL calculation 18 ml/min; Estimated Glomerular Filt Rate 16; Glucose 186 mg/dL (65-110); Magnesium 2.2 mg/dL (1.6-2.3); Potassium 3.1 mmol/L (3.4-5.0); Sodium 140 mmol/L (137-145)
[2023-02-25 05:52] LABS: Anisocytosis 2+ (NORMAL); Hypochromasia 2+ (NORMAL); Platelet Estimate Adequate (Adequate); Poikilocytosis 2+ (NORMAL)
[2023-02-25 05:53] LABS: Ovalocytes 1+ (NORMAL); Schistocytes None Seen (NORMAL)
[2023-02-25] MEDS: HEPARIN SODIUM 5,000 UNITS/ML VIAL 5000 UNITS SUB-Q ×3 (06:05→21:27)
[2023-02-25 07:59] LABS: Glucose Point of Care 181 mg/dl (65-105)
[2023-02-25] MEDS: POTASSIUM CHLORIDE 20 MEQ ER TABLET 40 MEQ PO (09:27)
[2023-02-25] MEDS: CIPROFLOXACIN 250 MG TABLET PO ×2 (09:28→20:49)
[2023-02-25] MEDS: EMPAGLIFLOZIN 25 MG TABLET PO (09:28)
[2023-02-25] MEDS: THERAPEUTIC MULTIVITAMINS/MINERALS TAB (*BKC) 1 TABLET PO (09:28)
[2023-02-25] MEDS: GABAPENTIN 100 MG CAPSULE 200 MG PO ×3 (09:28→17:26)
[2023-02-25] MEDS: METOPROLOL TARTRATE 50 MG TAB 100 MG PO ×2 (09:29→20:49)
--- NOTE | 2023-02-25 11:35 | PM.PNCARD ---
Progress Note: A&P Assessment and Plan (1) Atrial fibrillation with RVR: Code(s): I48.91 - Unspecified atrial fibrillation Status: Acute (2) Acute on chronic heart failure with preserved ejection fraction (HFpEF): Code(s): I50.33 - Acute on chronic diastolic (congestive) heart failure Status: Acute Plan Diastolic CHF with Persistent AF . Heart rate control has been difficult to achieve and he is now on a high dose of metoprolol. Will not make any further adjustments today as he is otherwise asymptomatic and hemodynamically stable. Patient states that my partner, Dr. Rivers did speak to him about the option of seeing an electrical products engineer to consider an AV junction ablation/pacemaker implant as a better long-term strategy in terms of managing his heart rate. He states this was discussed but an appointment was never made. I believe we should make an attempt to have him see electrical products engineer in consultation given the frequency of his admissions with AF where good heart rate control has been difficult to provide. David Blackmon MD [facility] Subjective Date/time seen: Date of service: 02/25/23 11:35 Interval history: Cardiology follow up for AF, CHF State he is feeling well today. Does not have any specific complaints. Date of service 02/24/23: Heart rate remains elevated despite increasing metoprolol yesterday. He continues to deny feeling any palpitations. Date of service : Asymptomatic . HR generally 100-120 , BP soft Exam Narrative: Awake alert oriented appears stated age Const: General: comfortable and no acute distress; No confusion Orientation/consciousness: No confusion HENMT: Face/Nose/Sinus: Normal nares present Mouth: Yes moist mucous membranes Eyes: General: appearance normal, both eyes and all related structures Sclera: sclerae normal Neck: Neck: supple and no JVD Chest: Other: No reproducible chest wall pain to palpation Resp: Effort & Inspection: normal respiratory effort Auscultation: rales (bilateral bases) and diminished lung sounds Cardio: Rate: regular rate and tachycardic Rhythm: regular rhythm and abnormal rhythm irregularly irregular Heart sounds: no murmurs Other: Significant bilateral lower extremity edema GI: Inspection: non-distended Urinary Catheter: Urinary Catheter: patent and draining Skin: General skin exam: normal color and rashes (Stasis changes noted bilateral lower extremity) Rashes: rashes noted (Stasis changes noted bilateral lower extremity) Neuro: General: No confusion Speech: normal speech and Abnormal speech present Sensory Exam: normal sensation Extrem: General: edema Other: 2+ bilateral lower extremity edema Psych: Mental Status: mental status grossly normal Affect: normal affect Objective Data Vital Signs Vital Signs: Vital Signs - 24 hr 02/24/23 12:08 02/24/23 12:00 02/24/23 13:39 Temperature 36.1 C L Pulse Rate 118 H 129 H Respiratory Rate 18 Blood Pressure 98/60 L Pulse Oximetry 92 96 Oxygen Delivery Room Air 02/24/23 16:00 02/24/23 19:51 02/24/23 20:50 Temperature 36.5 C Pulse Rate 117 H 130 H 122 H Respiratory Rate 18 Blood Pressure 104/68 Pulse Oximetry 96 Oxygen Delivery 02/24/23 20:00 02/25/23 00:00 02/25/23 04:00 Temperature Pulse Rate 124 H 112 H 117 H Respiratory Rate Blood Pressure Pulse Oximetry Oxygen Delivery 02/25/23 05:00 02/25/23 08:20 02/25/23 09:29 Temperature 36.7 C 36.6 C Pulse Rate 133 H 122 H 122 H Respiratory Rate 17 12 Blood Pressure 98/49 L 99/67 L Pulse Oximetry 92 93 Oxygen Delivery 02/25/23 09:25 02/25/23 08:03 Temperature Pulse Rate 123 H Respiratory Rate Blood Pressure Pulse Oximetry Oxygen Delivery Room Air Intake/Output Intake/Output: Intake & Output 02/22/23 02/23/23 02/24/23 02/25/23 23:59 23:59 23:59 23:59 Intake Total 1702 1850 1270 740 Output T
--- NOTE | 2023-02-25 11:52 | PM.PNNEP ---
Progress Note: A&P Assessment and Plan (1) ELIZABETH (acute kidney injury): Code(s): N17.9 - Acute kidney failure, unspecified Status: Acute Assessment and Plan: slow improvement noted etiology? suspicion falls on obstruction -- however, despite barrientos catheter placement, creatininie not coming down.... continue to make good urine output evaluation to date: renal ultrasound with left renal atrophy UA with blood and protein urine electrolytes non-prenal CPK low serological testing pending consider renal biopsy? since creatinine improving, will follow trend for a few more days... follow trend of repeat labs and UOP (2) Chronic kidney disease, stage 3b: Code(s): N18.32 - Chronic kidney disease, stage 3b Status: Acute Assessment and Plan: baseline creatinine runs around 1.4 - 2.0mg/dl in the last several months suspect secondary to hypertension, diabetes, and age related change (3) Paroxysmal atrial fibrillation: Code(s): I48.0 - Paroxysmal atrial fibrillation Status: Acute Assessment and Plan: rate control strategy Cardiology following holding anticoagulation currently (4) Anemia: Code(s): D64.9 - Anemia, unspecified Status: Acute Assessment and Plan: due to iron deficiency and ELIZABETH along with CKD follow trend of H/H (5) CHF (congestive heart failure): Code(s): I50.9 - Heart failure, unspecified Status: Acute Assessment and Plan: appears right sided based on last Echo good urine output noted (on diuretics) follow volume status (6) Essential (primary) hypertension: Code(s): I10 - Essential (primary) hypertension Status: Acute Assessment and Plan: soft BP/relative hypotension noted BP meds on hold except for metoprolol metoprolol is more for rate control follow trend of hemodynamics (7) Type 2 diabetes mellitus: Qualifiers: Diabetes mellitus assisted insulin use: without high school librarian use Diabetes mellitus complication status: without complication Qualified Code(s): E11.9 - Type 2 diabetes mellitus without complications Code(s): E11.9 - Type 2 diabetes mellitus without complications Status: Chronic Assessment and Plan: follow accu-cheks glycemic control per hospitalists Will continue to follow. Subjective Date/time seen: 02/25/23 11:52 Interval history: Follow-up for acute kidney injury/acute renal failure on chronic kidney disease. Despite diuresis and reasonable urine output, lower exremity edema seems about the same; renal function continues to slowly improved; no apparent distress voiced at the time of my visit. Exam Narrative: General: WD/WN male in NAD Heart: normal S1 and S2; no rub Lungs: decreased at bases Abdomen: soft, nontender, nondistended, positive bowel sounds Extremities: no cyanosis or clubbing; 1 - 2+ edema Skin: warm and intact Objective Data Vital Signs Vital Signs: Vital Signs 02/24/23 11:07 02/24/23 11:15 02/24/23 12:08 Temperature Pulse Rate 116 H Respiratory Rate Blood Pressure Pulse Oximetry 96 92 Oxygen Delivery Nasal Cannula Room Air Oxygen Flow Rate 1 02/24/23 12:00 02/24/23 13:39 02/24/23 16:00 Temperature 97.0 F L Pulse Rate 118 H 129 H 117 H Respiratory Rate 18 Blood Pressure 98/60 L Pulse Oximetry 96 Oxygen Delivery Oxygen Flow Rate 02/24/23 19:51 02/24/23 20:50 02/24/23 20:00 Temperature 97.7 F Pulse Rate 130 H 122 H 124 H Respiratory Rate 18 Blood Pressure 104/68 Pulse Oximetry 96 Oxygen Delivery Oxygen Flow Rate 02/25/23 00:00 02/25/23 04:00 02/25/23 05:00 Temperature 98.1 F Pulse Rate 112 H 117 H 133 H Respiratory Rate 17 Blood Pressure 98/49 L Pulse Oximetry 92 Oxygen Delivery Oxygen Flow Rate 02/25/23 08:20 02/25/23 09:29 02/25/23 11:25 Temperature 97.9 F 97.2
--- NOTE | 2023-02-25 11:52 | P.PNNP_ITS ---
Progress Note: A&P Assessment and Plan (1) ELIZABETH (acute kidney injury): Code(s): N17.9 - Acute kidney failure, unspecified Status: Acute Assessment and Plan: * slow improvement noted * etiology? * suspicion falls on obstruction -- however, despite barrientos catheter placement, creatininie not coming down.... * continue to make good urine output * evaluation to date: * renal ultrasound with left renal atrophy * UA with blood and protein * urine electrolytes non-prenal * CPK low * serological testing pending * consider renal biopsy? * since creatinine improving, will follow trend for a few more days... * follow trend of repeat labs and UOP (2) Chronic kidney disease, stage 3b: Code(s): N18.32 - Chronic kidney disease, stage 3b Status: Acute Assessment and Plan: * baseline creatinine runs around 1.4 - 2.0mg/dl in the last several months * suspect secondary to hypertension, diabetes, and age related change (3) Paroxysmal atrial fibrillation: Code(s): I48.0 - Paroxysmal atrial fibrillation Status: Acute Assessment and Plan: * rate control strategy * Cardiology following * holding anticoagulation currently (4) Anemia: Code(s): D64.9 - Anemia, unspecified Status: Acute Assessment and Plan: * due to iron deficiency and ELIZABETH along with CKD * follow trend of H/H (5) CHF (congestive heart failure): Code(s): I50.9 - Heart failure, unspecified Status: Acute Assessment and Plan: * appears right sided based on last Echo * good urine output noted (on diuretics) * follow volume status (6) Essential (primary) hypertension: Code(s): I10 - Essential (primary) hypertension Status: Acute Assessment and Plan: * soft BP/relative hypotension noted * BP meds on hold except for metoprolol * metoprolol is more for rate control * follow trend of hemodynamics (7) Type 2 diabetes mellitus: Qualifiers: Diabetes mellitus superintendent marine oil terminal insulin use: without superintendent marine oil terminal use Diabetes mellitus complication status: without complication Qualified Code(s): E11.9 - Type 2 diabetes mellitus without complications Code(s): E11.9 - Type 2 diabetes mellitus without complications Status: Chronic Assessment and Plan: * follow accu-cheks * glycemic control per hospitalists Will continue to follow. Subjective Date/time seen: 12/16/23 11:52 Interval history: Follow-up for acute kidney injury/acute renal failure on chronic kidney disease. Despite diuresis and reasonable urine output, lower exremity edema seems about the same; renal function continues to slowly improved; no apparent distress voiced at the time of my visit. Exam Narrative: General: WD/WN male in NAD Heart: normal S1 and S2; no rub Lungs: decreased at bases Abdomen: soft, nontender, nondistended, positive bowel sounds Extremities: no cyanosis or clubbing; 1 - 2+ edema Skin: warm and intact Objective Data Vital Signs Vital Signs: Vital Signs 02/24/23 11:07 02/24/23 11:15 02/24/23 12:08 Temperature Pulse Rate 116 H Respiratory Rate Blood Pressure Pulse Oximetry 96 92 Oxygen Delivery Nasal Cannula Room Air Oxygen Flow Rate 1 02/24/23 12:0
[2023-02-25 11:53] LABS: Glucose Point of Care 276 mg/dl (65-105)
[2023-02-25] MEDS: INSULIN ASPART (*BKC) 100 UNITS/ML SUB-Q ×2 (12:04→17:25)
--- NOTE | 2023-02-25 12:51 | PM.IMPN ---
Progress Note: A&P Assessment and Plan (1) Acute on chronic renal failure: Code(s): N17.9 - Acute kidney failure, unspecified; N18.9 - Chronic kidney disease, unspecified Status: Acute (2) Occult blood positive stool: Code(s): R19.5 - Other fecal abnormalities Status: Acute (3) Chronic anemia: Code(s): D64.9 - Anemia, unspecified Status: Acute (4) Elevated transaminase level: Code(s): R74.01 - Elevation of levels of liver transaminase levels Status: Acute (5) Intraventricular hemorrhage: Code(s): I61.5 - Nontraumatic intracerebral hemorrhage, intraventricular Status: Acute (6) Type 2 diabetes mellitus: Qualifiers: Diabetes mellitus senior living insulin use: without keno terminal operator use Diabetes mellitus complication status: without complication Qualified Code(s): E11.9 - Type 2 diabetes mellitus without complications Code(s): E11.9 - Type 2 diabetes mellitus without complications Status: Acute (7) CHF (congestive heart failure): Code(s): I50.9 - Heart failure, unspecified Status: Acute Plan 77M w/ PMH CAD s/p stent, CKD stage 3, carotid artery disease s/p carotid endarterectomy, CHF borderline reduced EF, p a fib failed cardioversion on pradaxa, NIDDM, hx of IVH, HTN, HLD, presents with weakness and anasarca. Admitted on 02/17/23 #weakness - PT/OT consulted # anasarca - etiology unclear, treat as below - mild improvement continue diuresis # acute decompensated HF borderline reduced EF - echo from [facility] 01/19 EF 45-50%, enlarged RV size, slightly decreased RV function, LAE, GENARO, MAC, MV not well visualized, moderate MR, mid to mod TR, trace to small pericardial effusion - cardiology consulted. cont lasix 40mg iv qday, daily weights, fluid restriction, I/Os - 02/23, lungs w/ scant crackles. still with LE edema likely 2/2 to superimposed hepatic + renal issues. albumin 3.1 BNP 7470 Diuresis limited due to borderline blood pressure. Will add midodrine for blood pressure along with albumin # ELIZABETH on CKD stage 3 - baseline sCR 1.7-2.0. Peaked to 4.60 in this admission. now trending down - nephrology consulted, though to be due to outlet obstruction vs ATN vs low effective arterial volume - cont trending renal function. biopsy still a consideration if it gets worse again CK normal proteinuria: 2.35 mg/mg TONIA screen is positive with elevaed CH50, noraml C3 and C4 Elevated kappa/lambda ratio ERNIE urine and serum pending Biopsy of kidney if renal dysfunction still persist on Monday Pradaxa on hold because of this. # a fib w/ RVR - previously on sotalol. dc'ed 2 to prolonged QTc. amiodarone also dc'ed 2 elevated LFTs - complicated by low BP due to other issues. cardiology following. metoprolol was on hold for low BP but 02/22 evening restarting 50mg po bid per cardiology. 02/23 tachycardia, appreciate cardiology recs. - hypokalemia, cont replacing. cont tele monitor. pradaxa on hold. consider renal dosing when restarting tsh is normal # hx HTN - torsemide on hold. cont lasix iv. metoprolol started at lower dose since his BP's have been soft. giving albumin 50G x 1 to assist with intravascular volume # recent IVH 01/2023 - monitored at [facility], upon discharge his pradaxa was restarted #NIDDM - accuchecks w/ ISS # cellulitis/UTI - cont ciprofloxacin, follow WBC and cultures # stool occult positive - unclear why this was taken. consult GI - 02/23 GI recommend monitoring, no scope for now h and h remains stable # transaminitis - he has had elevated LFT as far back as 2020. unclear etiology and it doesn't appear it has been investigated. his LFTs are trending up and it is unclear if this is due to CHF or another cause. - amiodarone since dc'ed. d/c zetia and statin - liver ultrasound on 02/23 demonstrating 9mm pancreatic cysts, f/u as outpatient. - pending infectious and automimmune hepatitis panel - consult GI, no further recommendations lf
[2023-02-25] MEDS: FUROSEMIDE INJ 40 MG/4 ML VIAL IV PUSH (14:08)
[2023-02-25] MEDS: ALBUMIN HUMAN 25% 25 GM/100 ML 200 ML IVPB ×2 (14:11→21:27)
[2023-02-25 16:43] LABS: Glucose Point of Care 234 mg/dl (65-105)
[2023-02-25] MEDS: MIDODRINE HCL 2.5 MG TABLET 5 MG PO (17:26)
[2023-02-25 21:00] LABS: Glucose Point of Care 181 mg/dl (65-105)
[2023-02-26] VITALS (12 sets, daily range): BP systolic 94–107; BP diastolic 55–72; PULSE 90–131; RESP 17–19; TEMP 36.4–36.6; O2SAT 92–99
[2023-02-26 05:11] LABS: Basophils Percent Auto 0.4 % (0.2-1.2); Eosinophils Absolute Auto 0.2 K/mm3 (0-0.3); Eosinophils Percent Auto 3.2 % (0-4.4); Hemoglobin 7.6 g/dL (14.0-18.0); Immature Granulocyte Absolute 0.01 K/mm3 (0.00-0.031); Immature Granulocyte Percent A 0.2 % (0-0.5); Lymphocytes Absolute Auto 0.76 K/mm3 (0.9-3.2); Lymphocytes Percent Auto 14.5 % (18.3-44.2); Mean Corpuscular HGB Conc 28.1 g/dl (32-36); Mean Corpuscular Hemoglobin 25.5 pg (26-34); Mean Corpuscular Volume 90.6 fl (80-100); Mean Platelet Volume 11.1 fl (7.4-10.4); Monocytes Absolute Auto 0.5 K/mm3 (0.1-0.6); Monocytes Percent Auto 9.4 % (2.6-8.5); Neutrophils Absolute Auto 3.8 K/mm3 (1.3-6.7); Neutrophils Percent Auto 72.3 % (45.5-73.1); Platelet Count Result 148 k/mm3 (150-375); Red Blood Count 2.98 M/mm3 (4.6-6.20); Red Cell Distribution Width 22.9 % (11.5-14.5); White Blood Count 5.2 K/mm3 (4.5-10.0)
[2023-02-26 05:20] LABS: Alanine Aminotransferase 224 U/L (6-50); Albumin Level 3.7 g/dL (3.5-5.1); Alkaline Phosphatase 223 U/L (38-126); Anion Gap 10 mmol/L (8-16); Aspartate Amino Transferase 216 U/L (17-59); Bilirubin,Total 1.3 mg/dL (0.2-1.3); Blood Urea Nitrogen 56 mg/dL (9-20); Calcium 8.7 mg/dL (8.4-10.2); Carbon Dioxide 27 mmol/L (22-30); Chloride 103 mmol/L (98-107); Estimated CRCL calculation 19 ml/min; Estimated Glomerular Filt Rate 18; Glucose 159 mg/dL (65-110); Magnesium 2.1 mg/dL (1.6-2.3); Sodium 140 mmol/L (137-145)
[2023-02-26] MEDS: ALBUMIN HUMAN 25% 25 GM/100 ML 200 ML IVPB ×3 (05:27→21:28)
[2023-02-26] MEDS: HEPARIN SODIUM 5,000 UNITS/ML VIAL 5000 UNITS SUB-Q ×3 (05:32→21:29)
[2023-02-26 07:30] LABS: Anisocytosis 2+ (NORMAL); Hypochromasia 2+ (NORMAL); Macrocytosis 1+ (NORMAL); Ovalocytes 1+ (NORMAL); Platelet Estimate Decreased (Adequate); Schistocytes None Seen (NORMAL)
[2023-02-26 08:42] LABS: Glucose Point of Care 145 mg/dl (65-105)
[2023-02-26] MEDS: THERAPEUTIC MULTIVITAMINS/MINERALS TAB (*BKC) 1 TABLET PO (09:12)
[2023-02-26] MEDS: MIDODRINE HCL 2.5 MG TABLET 5 MG PO ×2 (09:12→17:29)
[2023-02-26] MEDS: GABAPENTIN 100 MG CAPSULE 200 MG PO ×3 (09:12→17:29)
[2023-02-26] MEDS: CIPROFLOXACIN 250 MG TABLET PO ×2 (09:13→21:28)
[2023-02-26] MEDS: EMPAGLIFLOZIN 25 MG TABLET PO (09:13)
[2023-02-26] MEDS: METOPROLOL TARTRATE 50 MG TAB 100 MG PO ×2 (09:13→21:29)
[2023-02-26] MEDS: FUROSEMIDE INJ 40 MG/4 ML VIAL IV PUSH (09:14)
[2023-02-26] MEDS: POTASSIUM CHLORIDE 20 MEQ ER TABLET 40 MEQ PO ×2 (09:14→17:30)
[2023-02-26 12:01] LABS: Glucose Point of Care 166 mg/dl (65-105)
--- NOTE | 2023-02-26 12:17 | PM.IMPN ---
Progress Note: A&P Assessment and Plan (1) Acute on chronic renal failure: Code(s): N17.9 - Acute kidney failure, unspecified; N18.9 - Chronic kidney disease, unspecified Status: Acute (2) Occult blood positive stool: Code(s): R19.5 - Other fecal abnormalities Status: Acute (3) Chronic anemia: Code(s): D64.9 - Anemia, unspecified Status: Acute (4) Elevated transaminase level: Code(s): R74.01 - Elevation of levels of liver transaminase levels Status: Acute (5) Intraventricular hemorrhage: Code(s): I61.5 - Nontraumatic intracerebral hemorrhage, intraventricular Status: Acute (6) Type 2 diabetes mellitus: Qualifiers: Diabetes mellitus custodial insulin use: without assistant terminal manager use Diabetes mellitus complication status: without complication Qualified Code(s): E11.9 - Type 2 diabetes mellitus without complications Code(s): E11.9 - Type 2 diabetes mellitus without complications Status: Acute (7) CHF (congestive heart failure): Code(s): I50.9 - Heart failure, unspecified Status: Acute Plan 77M w/ PMH CAD s/p stent, CKD stage 3, carotid artery disease s/p carotid endarterectomy, CHF borderline reduced EF, p a fib failed cardioversion on pradaxa, NIDDM, hx of IVH, HTN, HLD, presents with weakness and anasarca. Admitted on 02/17/23 #weakness - PT/OT consulted # anasarca - etiology unclear, treat as below - mild improvement continue diuresis # acute decompensated HF borderline reduced EF - echo from [facility] 01/19 EF 45-50%, enlarged RV size, slightly decreased RV function, LAE, GENARO, MAC, MV not well visualized, moderate MR, mid to mod TR, trace to small pericardial effusion - cardiology consulted. cont lasix 40mg iv qday, daily weights, fluid restriction, I/Os - 02/23, lungs w/ scant crackles. still with LE edema likely 2/2 to superimposed hepatic + renal issues. albumin 3.1 BNP 7470 Diuresis limited due to borderline blood pressure. Will add midodrine for blood pressure along with albumin # ELIZABETH on CKD stage 3 - baseline sCR 1.7-2.0. Peaked to 4.60 in this admission. now trending down - nephrology consulted, though to be due to outlet obstruction vs ATN vs low effective arterial volume - cont trending renal function. biopsy still a consideration if it gets worse again CK normal proteinuria: 2.35 mg/mg TONIA screen is positive with elevaed CH50, noraml C3 and C4 Elevated kappa/lambda ratio ERNIE urine and serum pending Biopsy of kidney if renal dysfunction still persist on Monday Pradaxa on hold because of this. # a fib w/ RVR - previously on sotalol. dc'ed 2 to prolonged QTc. amiodarone also dc'ed 2/ elevated LFTs - complicated by low BP due to other issues. cardiology following. metoprolol was on hold for low BP but 02/22 evening restarting 50mg po bid per cardiology. 02/23 tachycardia, appreciate cardiology recs. - hypokalemia, cont replacing. cont tele monitor. pradaxa on hold. consider renal dosing when restarting tsh is normal Up titration be on metoprolol 100 mg b.i.d. per Cardiology Appears he used to be on 200 mg b.i.d. at home # hx HTN - torsemide on hold. cont lasix iv. metoprolol started at lower dose since his BP's have been soft. giving albumin 50G x 1 to assist with intravascular volume # recent IVH 01/2023 - monitored at [facility], upon discharge his pradaxa was restarted #NIDDM - accuchecks w/ ISS # cellulitis/UTI - cont ciprofloxacin, follow WBC and cultures finish the course today # stool occult positive - unclear why this was taken. consult GI - 02/23 GI recommend monitoring, no scope for now h and h remains stable # transaminitis - he has had elevated LFT as far back as 2020. unclear etiology and it doesn't appear it has been investigated. his LFTs are trending up and it is unclear if this is due to CHF or another cause. - amiodarone since dc'ed. d/c zetia and statin - liver ultrasound on 02/23 demonstrating 9mm montes
--- NOTE | 2023-02-26 13:30 | PM.PNNEP ---
Progress Note: A&P Assessment and Plan (1) ELIZABETH (acute kidney injury): Code(s): N17.9 - Acute kidney failure, unspecified Status: Acute Assessment and Plan: slow improvement noted etiology? suspicion falls on obstruction -- however, despite barrientos catheter placement, creatininie not coming down.... continue to make good urine output evaluation to date: renal ultrasound with left renal atrophy UA with blood and protein urine electrolytes non-prenal CPK low serological testing pending consider renal biopsy? since creatinine improving, will follow trend for a few more days... follow trend of repeat labs and UOP (2) Chronic kidney disease, stage 3b: Code(s): N18.32 - Chronic kidney disease, stage 3b Status: Acute Assessment and Plan: baseline creatinine runs around 1.4 - 2.0mg/dl in the last several months suspect secondary to hypertension, diabetes, and age related change (3) Paroxysmal atrial fibrillation: Code(s): I48.0 - Paroxysmal atrial fibrillation Status: Acute Assessment and Plan: rate control strategy Cardiology following holding anticoagulation currently (4) Anemia: Code(s): D64.9 - Anemia, unspecified Status: Acute Assessment and Plan: due to iron deficiency and ELIZABETH along with CKD follow trend of H/H (5) CHF (congestive heart failure): Code(s): I50.9 - Heart failure, unspecified Status: Acute Assessment and Plan: appears right sided based on last Echo good urine output noted (on diuretics) follow volume status (6) Essential (primary) hypertension: Code(s): I10 - Essential (primary) hypertension Status: Acute Assessment and Plan: soft BP/relative hypotension noted BP meds on hold except for metoprolol metoprolol is more for rate control follow trend of hemodynamics (7) Type 2 diabetes mellitus: Qualifiers: Diabetes mellitus penitentiary insulin use: without home and family living professor use Diabetes mellitus complication status: without complication Qualified Code(s): E11.9 - Type 2 diabetes mellitus without complications Code(s): E11.9 - Type 2 diabetes mellitus without complications Status: Chronic Assessment and Plan: follow accu-cheks glycemic control per hospitalists Will continue to follow. Subjective Date/time seen: 02/26/23 13:30 Interval history: Follow-up for acute kidney injury/acute renal failure on chronic kidney disease. Heart rate continues to fluctuate despite rate control strategy; slightly better hemodynamics noted; stable urine output with diuresis and renal function slightly improved as well. Exam Narrative: General: WD/WN male in NAD Heart: normal S1 and S2; no rub Lungs: decreased at bases Abdomen: soft, nontender, nondistended, positive bowel sounds Extremities: no cyanosis or clubbing; 1 - 2+ edema Skin: no rash Objective Data Vital Signs Vital Signs: Vital Signs Temp Pulse Resp BP Pulse Ox O2 Del Method 02/26/23 13:13 97.5 F L 110 H 19 98/55 L 92 02/26/23 12:00 104 H 02/26/23 08:00 131 H 02/26/23 09:05 Room Air 02/26/23 09:13 125 H 02/26/23 08:05 97.6 F 90 17 107/68 98 02/26/23 05:55 97.9 F 128 H 19 97/72 L 99 02/26/23 04:00 122 H 02/26/23 00:00 111 H 02/25/23 21:04 97.6 F 131 H 18 117/91 H 92 02/25/23 20:49 122 H 02/25/23 20:00 125 H 02/25/23 16:00 125 H Intake/Output Intake/Output: Intake & Output 02/23/23 02/24/23 02/25/23 02/26/23 23:59 23:59 23:59 23:59 Intake Total 1850 1270 2150 1140 Output Total 4300 4400 2450 1300 Balance -6470 -3130 -300 -160 Meds/Results Medications: Active Medications Generic Name Dose Route Start Last Admin Trade Name Terra PRN Reason Stop Dose Admin Ciprofloxacin 250 mg 02/19/23 09:00 02/26/23 09:13 Ciprofloxacin 250 Mg T
--- NOTE | 2023-02-26 13:30 | P.PNNP_ITS ---
Progress Note: A&P Assessment and Plan (1) ELIZABETH (acute kidney injury): Code(s): N17.9 - Acute kidney failure, unspecified Status: Acute Assessment and Plan: * slow improvement noted * etiology? * suspicion falls on obstruction -- however, despite barrientos catheter placement, creatininie not coming down.... * continue to make good urine output * evaluation to date: * renal ultrasound with left renal atrophy * UA with blood and protein * urine electrolytes non-prenal * CPK low * serological testing pending * consider renal biopsy? * since creatinine improving, will follow trend for a few more days... * follow trend of repeat labs and UOP (2) Chronic kidney disease, stage 3b: Code(s): N18.32 - Chronic kidney disease, stage 3b Status: Acute Assessment and Plan: * baseline creatinine runs around 1.4 - 2.0mg/dl in the last several months * suspect secondary to hypertension, diabetes, and age related change (3) Paroxysmal atrial fibrillation: Code(s): I48.0 - Paroxysmal atrial fibrillation Status: Acute Assessment and Plan: * rate control strategy * Cardiology following * holding anticoagulation currently (4) Anemia: Code(s): D64.9 - Anemia, unspecified Status: Acute Assessment and Plan: * due to iron deficiency and ELIZABETH along with CKD * follow trend of H/H (5) CHF (congestive heart failure): Code(s): I50.9 - Heart failure, unspecified Status: Acute Assessment and Plan: * appears right sided based on last Echo * good urine output noted (on diuretics) * follow volume status (6) Essential (primary) hypertension: Code(s): I10 - Essential (primary) hypertension Status: Acute Assessment and Plan: * soft BP/relative hypotension noted * BP meds on hold except for metoprolol * metoprolol is more for rate control * follow trend of hemodynamics (7) Type 2 diabetes mellitus: Qualifiers: Diabetes mellitus watermelon harvesting supervisor insulin use: without watermelon harvesting supervisor use Diabetes mellitus complication status: without complication Qualified Code(s): E11.9 - Type 2 diabetes mellitus without complications Code(s): E11.9 - Type 2 diabetes mellitus without complications Status: Chronic Assessment and Plan: * follow accu-cheks * glycemic control per hospitalists Will continue to follow. Subjective Date/time seen: 02/26/23 13:30 Interval history: Follow-up for acute kidney injury/acute renal failure on chronic kidney disease. Heart rate continues to fluctuate despite rate control strategy; slightly better hemodynamics noted; stable urine output with diuresis and renal function slightly improved as well. Exam Narrative: General: WD/WN male in NAD Heart: normal S1 and S2; no rub Lungs: decreased at bases Abdomen: soft, nontender, nondistended, positive bowel sounds Extremities: no cyanosis or clubbing; 1 - 2+ edema Skin: no rash Objective Data Vital Signs Vital Signs: Vital Signs Temp Pulse Resp BP Pulse Ox O2 Del Method 02/26/23 13:13 97.5 F L 110 H 19 98/55 L 92 02/26/23 12:00 104 H 02/26/23 08:00 131 H 02/26/23 09:05 Room Air 02/26/23 09:13 125 H 02/26/23 08:05 97.6 F 90 17 107/68 98 02/26/23 05:55 97.9 F
[2023-02-26 17:14] LABS: Glucose Point of Care 227 mg/dl (65-105)
[2023-02-26] MEDS: EPOETIN ALFA 20,000 UNITS/ML VIAL 20000 UNITS SUB-Q (17:29)
[2023-02-26] MEDS: INSULIN ASPART (*BKC) 100 UNITS/ML SUB-Q ×2 (17:31→21:31)
[2023-02-26 21:15] LABS: Glucose Point of Care 272 mg/dl (65-105)
[2023-02-27] VITALS (14 sets, daily range): BP systolic 94–118; BP diastolic 59–68; PULSE 106–131; RESP 16–19; TEMP 36.4–36.6; O2SAT 91–93
[2023-02-27] MEDS: ALBUMIN HUMAN 25% 25 GM/100 ML 200 ML IVPB ×3 (05:05→21:42)
[2023-02-27 06:11] LABS: Basophils Percent Auto 0.6 % (0.2-1.2); Eosinophils Absolute Auto 0.1 K/mm3 (0-0.3); Eosinophils Percent Auto 1.5 % (0-4.4); Hematocrit 27.5 % (42.0-52.0); Hemoglobin 7.8 g/dL (14.0-18.0); Immature Granulocyte Absolute 0.03 K/mm3 (0.00-0.031); Immature Granulocyte Percent A 0.6 % (0-0.5); Lymphocytes Absolute Auto 0.87 K/mm3 (0.9-3.2); Lymphocytes Percent Auto 16.6 % (18.3-44.2); Mean Corpuscular HGB Conc 28.4 g/dl (32-36); Mean Corpuscular Hemoglobin 25.5 pg (26-34); Mean Corpuscular Volume 89.9 fl (80-100); Mean Platelet Volume 11.2 fl (7.4-10.4); Monocytes Absolute Auto 0.6 K/mm3 (0.1-0.6); Monocytes Percent Auto 10.5 % (2.6-8.5); Neutrophils Absolute Auto 3.7 K/mm3 (1.3-6.7); Neutrophils Percent Auto 70.2 % (45.5-73.1); Platelet Count Result 134 k/mm3 (150-375); Red Blood Count 3.06 M/mm3 (4.6-6.20); Red Cell Distribution Width 23.3 % (11.5-14.5); White Blood Count 5.2 K/mm3 (4.5-10.0)
[2023-02-27 06:17] LABS: Alanine Aminotransferase 158 U/L (6-50); Albumin Level 4.3 g/dL (3.5-5.1); Alkaline Phosphatase 192 U/L (38-126); Anion Gap 17 mmol/L (8-16); Aspartate Amino Transferase 162 U/L (17-59); Bilirubin,Total 2.2 mg/dL (0.2-1.3); Blood Urea Nitrogen 62 mg/dL (9-20); Calcium 9.1 mg/dL (8.4-10.2); Carbon Dioxide 20 mmol/L (22-30); Chloride 105 mmol/L (98-107); Estimated CRCL calculation 20 ml/min; Estimated Glomerular Filt Rate 19; Glucose 188 mg/dL (65-110); Magnesium 2.4 mg/dL (1.6-2.3); Sodium 142 mmol/L (137-145)
[2023-02-27 06:19] LABS: INR 2.5; Prothrombin Time 28.8 Seconds (11.1-14.7)
[2023-02-27 06:20] LABS: Partial Thromboplastin Time 75.4 SECONDS (22.3-36.8)
[2023-02-27 07:58] LABS: Hypochromasia 3+ (NORMAL); Schistocytes None Seen (NORMAL)
[2023-02-27 07:59] LABS: Helmet Cells 1+ (NORMAL); Ovalocytes 2+ (NORMAL); Polychromasia 1+ (NORMAL); Tear Drop Cells 1+ (NORMAL)
[2023-02-27 08:06] LABS: Glucose Point of Care 190 mg/dl (65-105)
[2023-02-27] MEDS: FUROSEMIDE INJ 40 MG/4 ML VIAL IV PUSH (08:43)
[2023-02-27] MEDS: GABAPENTIN 100 MG CAPSULE 200 MG PO ×2 (08:44→12:30)
[2023-02-27] MEDS: METOPROLOL TARTRATE 50 MG TAB 100 MG PO ×2 (08:44→21:46)
[2023-02-27] MEDS: CIPROFLOXACIN 250 MG TABLET PO (08:44)
[2023-02-27] MEDS: MIDODRINE HCL 2.5 MG TABLET 5 MG PO (08:44)
[2023-02-27] MEDS: EMPAGLIFLOZIN 25 MG TABLET PO (08:44)
[2023-02-27] MEDS: THERAPEUTIC MULTIVITAMINS/MINERALS TAB (*BKC) 1 TABLET PO (08:44)
--- NOTE | 2023-02-27 10:09 | PCPTNOTE ---
Attempted to see patient for PT, however patient declined due to not feeling well and patient too tired to participated in PT.
[2023-02-27] MEDS: METOPROLOL TARTRATE 25 MG TABLET PO ×2 (10:10→21:45)
--- NOTE | 2023-02-27 11:15 | P.PNNP_ITS ---
Progress Note: A&P Assessment and Plan (1) ELIZABETH (acute kidney injury): Code(s): N17.9 - Acute kidney failure, unspecified Status: Acute Assessment and Plan: * slow improvement noted * etiology? * suspicion falls on obstruction -- however, despite barrientos catheter placement, creatininie not coming down.... * continue to make good urine output * evaluation to date: * renal ultrasound with left renal atrophy * UA with blood and protein * urine electrolytes non-prenal * CPK low * serological testing noted * proceed with renal biopsy once INR safe * follow trend of repeat labs and UOP (2) Chronic kidney disease, stage 3b: Code(s): N18.32 - Chronic kidney disease, stage 3b Status: Acute Assessment and Plan: * baseline creatinine runs around 1.4 - 2.0mg/dl in the last several months * suspect secondary to hypertension, diabetes, and age related change (3) Paroxysmal atrial fibrillation: Code(s): I48.0 - Paroxysmal atrial fibrillation Status: Acute Assessment and Plan: * rate control strategy * Cardiology following * holding anticoagulation currently (4) Anemia: Code(s): D64.9 - Anemia, unspecified Status: Acute Assessment and Plan: * due to iron deficiency and ELIZABETH along with CKD * follow trend of H/H (5) CHF (congestive heart failure): Code(s): I50.9 - Heart failure, unspecified Status: Acute Assessment and Plan: * appears right sided based on last Echo * good urine output noted (on diuretics) * follow volume status (6) Essential (primary) hypertension: Code(s): I10 - Essential (primary) hypertension Status: Acute Assessment and Plan: * soft BP/relative hypotension noted * BP meds on hold except for metoprolol * metoprolol is more for rate control * follow trend of hemodynamics (7) Type 2 diabetes mellitus: Qualifiers: Diabetes mellitus adjunct faculty for medical terminology insulin use: without usp use Diabetes mellitus complication status: without complication Qualified Code(s): E11.9 - Type 2 diabetes mellitus without complications Code(s): E11.9 - Type 2 diabetes mellitus without complications Status: Chronic Assessment and Plan: * follow accu-cheks * glycemic control per hospitalists Will continue to follow. Subjective Date/time seen: 02/27/23 11:15 Interval history: Follow-up for acute kidney injury/acute renal failure on chronic kidney disease. Heart rate continues to fluctuate despite rate control efforts; slightly better hemodynamics noted; stable urine output with diuresis and renal function slightly improved as well but not back to baseline. Exam Narrative: General: WD/WN male in NAD Heart: normal S1 and S2; no rub Lungs: decreased at bases Abdomen: soft, nontender, nondistended, positive bowel sounds Extremities: no cyanosis or clubbing; 1 - 2+ edema Skin: no nodules Objective Data Vital Signs Vital Signs: Vital Signs Temp Pulse Resp BP Pulse Ox O2 Del Method 02/27/23 10:10 124 H 02/27/23 08:00 Room Air 02/27/23 08:00 130 H 02/27/23 08:44 124 H 02/27/23 05:01 97.6 F 110 H 16 118/60 93 02/27/23 04:00 122 H 02/27/23 00:00 131 H 02/26/23 20:00 129 H
--- NOTE | 2023-02-27 11:15 | PM.PNNEP ---
Progress Note: A&P Assessment and Plan (1) ELIZABETH (acute kidney injury): Code(s): N17.9 - Acute kidney failure, unspecified Status: Acute Assessment and Plan: slow improvement noted etiology? suspicion falls on obstruction -- however, despite barrinetos catheter placement, creatininie not coming down.... continue to make good urine output evaluation to date: renal ultrasound with left renal atrophy UA with blood and protein urine electrolytes non-prenal CPK low serological testing noted proceed with renal biopsy once INR safe follow trend of repeat labs and UOP (2) Chronic kidney disease, stage 3b: Code(s): N18.32 - Chronic kidney disease, stage 3b Status: Acute Assessment and Plan: baseline creatinine runs around 1.4 - 2.0mg/dl in the last several months suspect secondary to hypertension, diabetes, and age related change (3) Paroxysmal atrial fibrillation: Code(s): I48.0 - Paroxysmal atrial fibrillation Status: Acute Assessment and Plan: rate control strategy Cardiology following holding anticoagulation currently (4) Anemia: Code(s): D64.9 - Anemia, unspecified Status: Acute Assessment and Plan: due to iron deficiency and ELIZABETH along with CKD follow trend of H/H (5) CHF (congestive heart failure): Code(s): I50.9 - Heart failure, unspecified Status: Acute Assessment and Plan: appears right sided based on last Echo good urine output noted (on diuretics) follow volume status (6) Essential (primary) hypertension: Code(s): I10 - Essential (primary) hypertension Status: Acute Assessment and Plan: soft BP/relative hypotension noted BP meds on hold except for metoprolol metoprolol is more for rate control follow trend of hemodynamics (7) Type 2 diabetes mellitus: Qualifiers: Diabetes mellitus group home insulin use: without manager terminal use Diabetes mellitus complication status: without complication Qualified Code(s): E11.9 - Type 2 diabetes mellitus without complications Code(s): E11.9 - Type 2 diabetes mellitus without complications Status: Chronic Assessment and Plan: follow accu-cheks glycemic control per hospitalists Will continue to follow. Subjective Date/time seen: 02/27/23 11:15 Interval history: Follow-up for acute kidney injury/acute renal failure on chronic kidney disease. Heart rate continues to fluctuate despite rate control efforts; slightly better hemodynamics noted; stable urine output with diuresis and renal function slightly improved as well but not back to baseline. Exam Narrative: General: WD/WN male in NAD Heart: normal S1 and S2; no rub Lungs: decreased at bases Abdomen: soft, nontender, nondistended, positive bowel sounds Extremities: no cyanosis or clubbing; 1 - 2+ edema Skin: no nodules Objective Data Vital Signs Vital Signs: Vital Signs Temp Pulse Resp BP Pulse Ox O2 Del Method 02/27/23 10:10 124 H 02/27/23 08:00 Room Air 02/27/23 08:00 130 H 02/27/23 08:44 124 H 02/27/23 05:01 97.6 F 110 H 16 118/60 93 02/27/23 04:00 122 H 02/27/23 00:00 131 H 02/26/23 20:00 129 H 02/27/23 00:14 97.7 F 128 H 18 104/68 91 02/26/23 21:30 Room Air 02/26/23 21:29 120 H 02/26/23 21:11 94/59 L 02/26/23 16:00 119 H 02/26/23 14:03 97.5 F L 110 H 19 98/55 L 92 Intake/Output Intake/Output: Intake & Output 02/24/23 02/25/23 02/26/23 02/27/23 23:59 23:59 23:59 23:59 Intake Total 1270 2150 2170 890 Output Total 4400 2450 2350 600 Balance -3130 -300 -180 290 Meds/Results Medications: Active Medications Generic Name Dose Route Start Last Admin Trade Name Terra PRN Reason Stop Dose Admin Ciprofloxacin 250 mg 02/19/23 09:00 02/27/23 08:44 Ciprofloxacin 250 Mg Tablet PO 250 mg
--- NOTE | 2023-02-27 11:47 | PCPTNOTE ---
Attempted to see patient for PT, however patient declined. Patient reported he had a rough night and has been NPO, and does not want to do therapy.
[2023-02-27 12:29] LABS: Glucose Point of Care 187 mg/dl (65-105)
--- NOTE | 2023-02-27 13:38 | PM.IMPN ---
Progress Note: A&P Assessment and Plan (1) Acute on chronic renal failure: Code(s): N17.9 - Acute kidney failure, unspecified; N18.9 - Chronic kidney disease, unspecified Status: Acute (2) Occult blood positive stool: Code(s): R19.5 - Other fecal abnormalities Status: Acute (3) Chronic anemia: Code(s): D64.9 - Anemia, unspecified Status: Acute (4) Elevated transaminase level: Code(s): R74.01 - Elevation of levels of liver transaminase levels Status: Acute (5) Intraventricular hemorrhage: Code(s): I61.5 - Nontraumatic intracerebral hemorrhage, intraventricular Status: Acute (6) Type 2 diabetes mellitus: Qualifiers: Diabetes mellitus detention insulin use: without risk assessor use Diabetes mellitus complication status: without complication Qualified Code(s): E11.9 - Type 2 diabetes mellitus without complications Code(s): E11.9 - Type 2 diabetes mellitus without complications Status: Acute (7) CHF (congestive heart failure): Code(s): I50.9 - Heart failure, unspecified Status: Acute Plan 77M w/ PMH CAD s/p stent, CKD stage 3, carotid artery disease s/p carotid endarterectomy, CHF borderline reduced EF, p a fib failed cardioversion on pradaxa, NIDDM, hx of IVH, HTN, HLD, presents with weakness and anasarca. Admitted on 02/17/23 #weakness - PT/OT consulted # anasarca - etiology unclear, treat as below - mild improvement continue diuresis # acute decompensated HF borderline reduced EF - echo from [facility] 01/19 EF 45-50%, enlarged RV size, slightly decreased RV function, LAE, GENARO, MAC, MV not well visualized, moderate MR, mid to mod TR, trace to small pericardial effusion - cardiology consulted. cont lasix 40mg iv qday, daily weights, fluid restriction, I/Os - 02/23, lungs w/ scant crackles. still with LE edema likely 2/2 to superimposed hepatic + renal issues. albumin 3.1 BNP 7470 Diuresis limited due to borderline blood pressure. Will add midodrine for blood pressure along with albumin # ELIZABETH on CKD stage 3 - baseline sCR 1.7-2.0. Peaked to 4.60 in this admission. now trending down - nephrology consulted, though to be due to outlet obstruction vs ATN vs low effective arterial volume - cont trending renal function. biopsy still a consideration if it gets worse again CK normal proteinuria: 2.35 mg/mg TONIA screen is positive with elevaed CH50, noraml C3 and C4 Elevated kappa/lambda ratio ERNIE urine and serum pending Biopsy of kidney if renal dysfunction still persist on Monday Pradaxa on hold because of this. # a fib w/ RVR - previously on sotalol. dc'ed 2 to prolonged QTc. amiodarone also dc'ed 2/ elevated LFTs - complicated by low BP due to other issues. cardiology following. metoprolol was on hold for low BP but 02/22 evening restarting 50mg po bid per cardiology. 02/23 tachycardia, appreciate cardiology recs. - hypokalemia, cont replacing. cont tele monitor. pradaxa on hold. consider renal dosing when restarting tsh is normal Up titration be on metoprolol 100 mg b.i.d. per Cardiology Appears he used to be on 200 mg b.i.d. at home Increase metoprolol to 125 mg b.i.d. # hx HTN - torsemide on hold. cont lasix iv. metoprolol started at lower dose since his BP's have been soft. giving albumin 50G x 1 to assist with intravascular volume # recent IVH 01/2023 - monitored at [facility] [place], upon discharge his pradaxa was restarted #NIDDM - accuchecks w/ ISS # cellulitis/UTI - cont ciprofloxacin, follow WBC and cultures finish the course. # stool occult positive - unclear why this was taken. consult GI - 02/23 GI recommend monitoring, no scope for now h and h remains stable # transaminitis - he has had elevated LFT as far back as 2020. unclear etiology and it doesn't appear it has been investigated. his LFTs are trending up and it is unclear if this is due to CHF or another cause. - amiodarone since dc'ed. d/c zetia and statin - liver ultrasou
[2023-02-27 14:19] LABS: Albumin 24%; Creat 24 Hr 0.84; Protein,total, 24 Hr Ur 2040 mg/24h
[2023-02-27 14:21] LABS: Pro/Creat Ratio 2422
[2023-02-27] MEDS: PHYTONADIONE INJ 10 MG/ML AMP SUB-Q (14:41)
--- NOTE | 2023-02-27 15:18 | PCPTNOTE ---
Attempted to see patient for PT, however patient sound asleep and woke up enough to state no to therapy and went back to sleep. Patient unable to be seen at this time.
--- NOTE | 2023-02-27 16:02 | PM.PNCARD ---
Progress Note: A&P Assessment and Plan (1) Atrial fibrillation with RVR: Code(s): I48.91 - Unspecified atrial fibrillation Status: Acute Assessment and Plan: Persistent atrial fibrillation with RVR, difficult to control particular in light of relative hypotension. Continue metoprolol tartrate 125 mg twice daily. Would like to up titrate further for better heart rate control, or, BP has been somewhat limiting. BP improved up titrate metoprolol for heart rate control as permitted. Patient is not a good candidate for systemic anticoagulation in light of history of subdural hematoma status post fall, significant anemia, worsening thrombocytopenia. Discussed as an outpatient consideration for left atrial appendage occlusion to reduce stroke risk and bleeding complication risk as he is at very high risk for embolic stroke without anticoagulation and very high risk for bleeding complications which may be fatal with long-term systemic anticoagulation. Patient verbalized understanding. Furthermore, given the difficult nature management AV node ablation and pacemaker implantation more effective in consistent heart rate control warranted as previously discussed. Patient verbalized understanding. Neither of these can be performed at this institution. Will workup heart rate control in general as permitted and acceptable outpatient follow-up with electrophysiology soon as possible. Continue telemetry to monitor heart rate response for now. Pradaxa has been on hold due to bleeding concerns and anemia. Patient remains on midodrine 5 mg twice daily for BP support. Minimize as much as possible. Caution with ambulation to avoid risk for falls and injuries. Patient is at high risk for complications given history of fall, subdural hematoma, stroke risk off anticoagulation at very high risk for bleeding complications in light of subdural hematoma and ongoing fall risk. Physical therapy occupational therapy. (2) Acute on chronic heart failure with preserved ejection fraction (HFpEF): Code(s): I50.33 - Acute on chronic diastolic (congestive) heart failure Status: Acute Assessment and Plan: Relatively stable, more right-sided symptoms. IV Lasix on hold due to hypotension. Continue to monitor volume status. Monitor renal function closely. Patient stable on room air at this time. Continue Jardiance 25 mg daily. (3) Acute on chronic renal failure: Code(s): N17.9 - Acute kidney failure, unspecified; N18.9 - Chronic kidney disease, unspecified Status: Acute Assessment and Plan: Renal function stable creatinine 3.2 yet BUN remains elevated at 62. Monitor volume status closely. Appreciate Nephrology involvement and recommendations. (4) Chronic anemia: Code(s): D64.9 - Anemia, unspecified Status: Acute Assessment and Plan: Patient remains significantly anemic hemoglobin stable relatively at 7.8 today. Follow H& H. Monitor for bleeding. Subjective Date/time seen: Date of service: 02/27/23 16:02 Interval history: Cardiology follow up for AF, CHF State he is feeling well today. Does not have any specific complaints. Date of service 02/24/23: Heart rate remains elevated despite increasing metoprolol yesterday. He continues to deny feeling any palpitations. Date of service : Asymptomatic . HR generally 100-120 , BP soft Date of service 02/27/2023: Patient appears mildly confused this afternoon describing how he got upset after being told there is no wrench at his house as he claimed there was. Denies palpitations, chest pain. States his breathing is fine at this time. He remains in AFib with RVR heart rate 110s to 120s typically. He states he feels a lot better today as he was upset yesterday. Review of Systems Review of Systems: - Chest pain - Shortness of breath - Orthopnea + Lower extremity edema All systems reviewed & are unremarkable except as noted in HPI and
[2023-02-27 16:53] LABS: Glucose Point of Care 300 mg/dl (65-105)
[2023-02-27] MEDS: INSULIN ASPART (*BKC) 100 UNITS/ML SUB-Q ×2 (17:00→21:49)
[2023-02-27 21:12] LABS: Glucose Point of Care 213 mg/dl (65-105)
--- NOTE | 2023-02-27 23:43 | PC.NURSE ---
Pt very difficult to rouse during med pass. Pt showed minimal response to voice or shaking and required multiple vigorous sternal rubs to become alert, after several minutes patient maintained open eyes on command and responded appropriately to orientation questions, patient continued to appear very lethargic and fatigued after event. Dr Velasquez notified of mental status change and head CT was ordered.
[2023-02-28] VITALS (18 sets, daily range): BP systolic 81–113; BP diastolic 43–71; PULSE 110–128; RESP 18–25; TEMP 36.2–36.6; O2SAT 63–98
[2023-02-28] MEDS: MIDODRINE HCL 2.5 MG TABLET 5 MG PO ×3 (00:28→18:35)
[2023-02-28 03:20] LABS: Basophils Percent Auto 0.5 % (0.2-1.2); Eosinophils Absolute Auto 0.1 K/mm3 (0-0.3); Eosinophils Percent Auto 1.4 % (0-4.4); Hematocrit 26.2 % (42.0-52.0); Hemoglobin 7.5 g/dL (14.0-18.0); Immature Granulocyte Absolute 0.03 K/mm3 (0.00-0.031); Immature Granulocyte Percent A 0.5 % (0-0.5); Lymphocytes Absolute Auto 0.93 K/mm3 (0.9-3.2); Lymphocytes Percent Auto 14.6 % (18.3-44.2); Mean Corpuscular HGB Conc 28.6 g/dl (32-36); Mean Corpuscular Hemoglobin 25.8 pg (26-34); Mean Platelet Volume 11.8 fl (7.4-10.4); Monocytes Absolute Auto 0.5 K/mm3 (0.1-0.6); Monocytes Percent Auto 8.5 % (2.6-8.5); Neutrophils Absolute Auto 4.8 K/mm3 (1.3-6.7); Neutrophils Percent Auto 74.5 % (45.5-73.1); Nucleated Red Blood Cells Perc 0.3 % (0.0-0.2); Platelet Count Result 148 k/mm3 (150-375); Red Blood Count 2.91 M/mm3 (4.6-6.20); Red Cell Distribution Width 23.5 % (11.5-14.5); White Blood Count 6.4 K/mm3 (4.5-10.0)
[2023-02-28 03:30] LABS: Ammonia < 9 umol/L (9-30)
[2023-02-28 03:32] LABS: Alanine Aminotransferase 116 U/L (6-50); Alkaline Phosphatase 139 U/L (38-126); Anion Gap 19 mmol/L (8-16); Aspartate Amino Transferase 96 U/L (17-59); Blood Urea Nitrogen 66 mg/dL (9-20); Calcium 9.4 mg/dL (8.4-10.2); Carbon Dioxide 21 mmol/L (22-30); Chloride 102 mmol/L (98-107); Estimated CRCL calculation 19 ml/min; Estimated Glomerular Filt Rate 18; Glucose 182 mg/dL (65-110); INR 3.1; Magnesium 2.3 mg/dL (1.6-2.3); Phosphorus 4.8 mg/dL (2.5-4.5); Potassium 3.9 mmol/L (3.4-5.0); Prothrombin Time 34.2 Seconds (11.1-14.7); Sodium 142 mmol/L (137-145)
[2023-02-28 03:34] LABS: Partial Thromboplastin Time 80.2 SECONDS (22.3-36.8)
[2023-02-28 03:48] LABS: Anisocytosis 1+ (NORMAL); Ovalocytes 1+ (NORMAL); Polychromasia 1+ (NORMAL); Schistocytes None Seen (NORMAL)
[2023-02-28] MEDS: CEFEPIME 2 GM/NS 50 ML 2 GM/50 ML BAG IVPB (05:51)
[2023-02-28] MEDS: ALBUMIN HUMAN 25% 25 GM/100 ML 200 ML IVPB ×3 (05:54→18:34)
[2023-02-28 06:17] LABS: Reflex Lactic Acid Yes or No Add Lactic
[2023-02-28] MEDS: VANCOMYCIN 1,500 MG/NS 500 ML 1,500 MG/500 ML BAG 250 MG IVPB (07:16)
[2023-02-28 07:21] LABS: MRSA (PCR) NOT DETECTED (NOT DETECTE)
[2023-02-28 07:23] LABS: Lactic Acid 5.5 mmol/L (0.7-2.0)
[2023-02-28] MEDS: EMPAGLIFLOZIN 25 MG TABLET PO (08:02)
[2023-02-28] MEDS: GABAPENTIN 100 MG CAPSULE 200 MG PO ×2 (08:02→12:33)
[2023-02-28] MEDS: THERAPEUTIC MULTIVITAMINS/MINERALS TAB (*BKC) 1 TABLET PO (08:02)
[2023-02-28 08:23] LABS: Glucose Point of Care 146 mg/dl (65-105)
--- NOTE | 2023-02-28 08:50 | PCOTNOTE ---
Per RN, Patient is not doing very well with his labs and david=t feeling well at this time. Will check back this afternoon.
[2023-02-28 09:56] LABS: Appearance Urine Cloudy (Clear); Bacteria Urine None Seen /hpf; Bilirubin Urine Negative (Negative); Blood Urine 3+ (Negative); Color Urine Yellow (Yellow); Glucose Urine UA 3+ mg/dL (Negative); Ketones Urine Negative (Negative); Leukocyte Esterase Ur Negative LEU/UL (NEGATIVE); Need Manual Microscopic Reviewed; Nitrate Urine Negative (Negative); Non Pathogenic Casts >20; Protein Urine 2+ mg/dL (Negative); RBC Urine >100 /hpf (0-2); Specific Grav Ur 1.022 (1.001-1.035); Squamous Epithelial Cell Urine Few /hpf (Few); WBC Urine 0-5 /hpf (0-3)
[2023-02-28 10:00] LABS: Add Urine Microscopic? YES
--- NOTE | 2023-02-28 10:10 | P.PNNP_ITS ---
Progress Note: A&P Assessment and Plan (1) ELIZABETH (acute kidney injury): Code(s): N17.9 - Acute kidney failure, unspecified Status: Acute Assessment and Plan: * slow improvement noted * etiology? * suspicion falls on obstruction -- however, despite barrientos catheter placement, creatininie not coming down.... * continue to make good urine output * evaluation to date: * renal ultrasound with left renal atrophy * UA with blood and protein * urine electrolytes non-prenal * CPK low * serological testing noted * proceed with renal biopsy once INR safe * follow trend of repeat labs and UOP (2) Chronic kidney disease, stage 3b: Code(s): N18.32 - Chronic kidney disease, stage 3b Status: Acute Assessment and Plan: * baseline creatinine runs around 1.4 - 2.0mg/dl in the last several months * suspect secondary to hypertension, diabetes, and age related change (3) Paroxysmal atrial fibrillation: Code(s): I48.0 - Paroxysmal atrial fibrillation Status: Acute Assessment and Plan: * rate control strategy * Cardiology following * holding anticoagulation currently (4) Anemia: Code(s): D64.9 - Anemia, unspecified Status: Acute Assessment and Plan: * due to iron deficiency and ELIZABTEH along with CKD * follow trend of H/H (5) CHF (congestive heart failure): Code(s): I50.9 - Heart failure, unspecified Status: Acute Assessment and Plan: * appears right sided based on last Echo * good urine output noted (on diuretics) * follow volume status (6) Essential (primary) hypertension: Code(s): I10 - Essential (primary) hypertension Status: Acute Assessment and Plan: * soft BP/relative hypotension noted * BP meds on hold except for metoprolol * metoprolol is more for rate control * follow trend of hemodynamics (7) Type 2 diabetes mellitus: Qualifiers: Diabetes mellitus terminal press operator insulin use: without shelter use Diabetes mellitus complication status: without complication Qualified Code(s): E11.9 - Type 2 diabetes mellitus without complications Code(s): E11.9 - Type 2 diabetes mellitus without complications Status: Chronic Assessment and Plan: * follow accu-cheks * glycemic control per hospitalists Will continue to follow. Subjective Date/time seen: 02/28/23 10:10 Interval history: Follow-up for acute kidney injury/acute renal failure on chronic kidney disease. Issues with decreased mentation overnight along with hypotension earlier this AM (in the context of Afib); INR still elevated so renal biopsy cancelled for today; lactic acid elevated by AM labs as well. Exam Narrative: General: WD/WN male in NAD Heart: normal S1 and S2; no rub Lungs: decreased at bases Abdomen: soft, nontender, nondistended, positive bowel sounds Extremities: no cyanosis or clubbing; 1+ edema Skin: no nodules Objective Data Vital Signs Vital Signs: Vital Signs Temp Pulse Resp BP Pulse Ox O2 Del Method 02/28/23 08:00 Room Air 02/28/23 07:47 97.8 F 115 H 18 87/55 L 93 02/28/23 04:00 114 H 02/28/23 00:00 114 H 02/27/23 20:00 118 H 02/28/23 03:24 97.6 F 115 H 20 99/58 L 98 02/28/23 00:00 97.6 F 115 H 18 83/65 L 92 12
--- NOTE | 2023-02-28 10:10 | PM.PNNEP ---
Progress Note: A&P Assessment and Plan (1) ELIZABETH (acute kidney injury): Code(s): N17.9 - Acute kidney failure, unspecified Status: Acute Assessment and Plan: slow improvement noted etiology? suspicion falls on obstruction -- however, despite barrientos catheter placement, creatininie not coming down.... continue to make good urine output evaluation to date: renal ultrasound with left renal atrophy UA with blood and protein urine electrolytes non-prenal CPK low serological testing noted proceed with renal biopsy once INR safe follow trend of repeat labs and UOP (2) Chronic kidney disease, stage 3b: Code(s): N18.32 - Chronic kidney disease, stage 3b Status: Acute Assessment and Plan: baseline creatinine runs around 1.4 - 2.0mg/dl in the last several months suspect secondary to hypertension, diabetes, and age related change (3) Paroxysmal atrial fibrillation: Code(s): I48.0 - Paroxysmal atrial fibrillation Status: Acute Assessment and Plan: rate control strategy Cardiology following holding anticoagulation currently (4) Anemia: Code(s): D64.9 - Anemia, unspecified Status: Acute Assessment and Plan: due to iron deficiency and ELIZABETH along with CKD follow trend of H/H (5) CHF (congestive heart failure): Code(s): I50.9 - Heart failure, unspecified Status: Acute Assessment and Plan: appears right sided based on last Echo good urine output noted (on diuretics) follow volume status (6) Essential (primary) hypertension: Code(s): I10 - Essential (primary) hypertension Status: Acute Assessment and Plan: soft BP/relative hypotension noted BP meds on hold except for metoprolol metoprolol is more for rate control follow trend of hemodynamics (7) Type 2 diabetes mellitus: Qualifiers: Diabetes mellitus halfway insulin use: without rat exterminator use Diabetes mellitus complication status: without complication Qualified Code(s): E11.9 - Type 2 diabetes mellitus without complications Code(s): E11.9 - Type 2 diabetes mellitus without complications Status: Chronic Assessment and Plan: follow accu-cheks glycemic control per hospitalists Will continue to follow. Subjective Date/time seen: 02/28/23 10:10 Interval history: Follow-up for acute kidney injury/acute renal failure on chronic kidney disease. Issues with decreased mentation overnight along with hypotension earlier this AM (in the context of Afib); INR still elevated so renal biopsy cancelled for today; lactic acid elevated by AM labs as well. Exam Narrative: General: WD/WN male in NAD Heart: normal S1 and S2; no rub Lungs: decreased at bases Abdomen: soft, nontender, nondistended, positive bowel sounds Extremities: no cyanosis or clubbing; 1+ edema Skin: no nodules Objective Data Vital Signs Vital Signs: Vital Signs Temp Pulse Resp BP Pulse Ox O2 Del Method 02/28/23 08:00 Room Air 02/28/23 07:47 97.8 F 115 H 18 87/55 L 93 02/28/23 04:00 114 H 02/28/23 00:00 114 H 02/27/23 20:00 118 H 02/28/23 03:24 97.6 F 115 H 20 99/58 L 98 02/28/23 00:00 97.6 F 115 H 18 83/65 L 92 02/27/23 21:45 Room Air 02/27/23 21:46 119 H 02/27/23 21:45 119 H 02/27/23 21:15 97.8 F 124 H 19 94/64 L 92 02/27/23 16:00 106 H 02/27/23 13:46 97.5 F L 120 H 17 102/59 L 93 Intake/Output Intake/Output: Intake & Output 02/25/23 02/26/23 02/27/23 02/28/23 23:59 23:59 23:59 23:59 Intake Total 2150 2170 1880 200 Output Total 2450 2350 1050 400 Balance -300 -180 830 -200 Meds/Results Medications: Active Medications Generic Name Dose Route Start Last Admin Trade Name Freq PRN Reason Stop Dose Admin Dextrose 12.5 gm 02/17/23 22:12 Dextrose 50% 25 Gm/50 Ml Syringe IV PUSH PRN MD
[2023-02-28 11:53] LABS: Alveolar/Arterial O2 Gradient 45.6 mmHg; Base Excess ABG -6.6 mEq/l (+/-2.0); Fractional Inspired Oxygen 21 %; Oxygen Content ABG 10.3 %vol (16.0-22.0); Oxygen Saturation ABG 92.7 % (95.0-100.0); Oxyhemoglobin 88.5 % THb (90.0-100.0); PO2 ABG 65.8 mmHg (80.0-100.0); PO2 FiO2 Ratio Arterial Blood 3.13 %; Total Hemoglobin 8.2 g/dL (12.0-18.0); pH ABG 7.368 (7.350-7.450)
[2023-02-28 11:55] LABS: Site Drawn RIGHT BRACHIAL
[2023-02-28 12:14] LABS: Glucose Point of Care 224 mg/dl (65-105)
[2023-02-28] MEDS: INSULIN ASPART (*BKC) 100 UNITS/ML SUB-Q ×2 (12:33→22:33)
--- NOTE | 2023-02-28 12:55 | PCSTNOTE ---
Please refer to the Bedside Swallow Evaluation in the EMR. Please note, silent aspiration cannot be ruled out at bedside.
[2023-02-28] MEDS: metroNIDAZOLE 500 MG TABLET PO (14:05)
--- NOTE | 2023-02-28 14:29 | PCPTNOTE ---
Attempted to see patient for PT, however patient declined and reported he wanted to rest.
--- NOTE | 2023-02-28 15:05 | PCOTNOTE ---
Patient refused to participate in any activity this P.M. Patient stated he does not feel good and so tired.
--- NOTE | 2023-02-28 15:47 | PM.IMPN ---
Progress Note: A&P Assessment and Plan (1) Acute on chronic renal failure: Code(s): N17.9 - Acute kidney failure, unspecified; N18.9 - Chronic kidney disease, unspecified Status: Acute (2) Occult blood positive stool: Code(s): R19.5 - Other fecal abnormalities Status: Acute (3) Chronic anemia: Code(s): D64.9 - Anemia, unspecified Status: Acute (4) Elevated transaminase level: Code(s): R74.01 - Elevation of levels of liver transaminase levels Status: Acute (5) Intraventricular hemorrhage: Code(s): I61.5 - Nontraumatic intracerebral hemorrhage, intraventricular Status: Acute (6) Type 2 diabetes mellitus: Qualifiers: Diabetes mellitus senior care insulin use: without buttermaker use Diabetes mellitus complication status: without complication Qualified Code(s): E11.9 - Type 2 diabetes mellitus without complications Code(s): E11.9 - Type 2 diabetes mellitus without complications Status: Acute (7) CHF (congestive heart failure): Code(s): I50.9 - Heart failure, unspecified Status: Acute Plan 77M w/ PMH CAD s/p stent, CKD stage 3, carotid artery disease s/p carotid endarterectomy, CHF borderline reduced EF, p a fib failed cardioversion on pradaxa, NIDDM, hx of IVH, HTN, HLD, presents with weakness and anasarca. Admitted on 02/17/23 #weakness - PT/OT consulted # anasarca - etiology unclear, treat as below - mild improvement continue diuresis which is currently on hold due to hypotension # acute decompensated HF borderline reduced EF - echo from [facility] 01/19 EF 45-50%, enlarged RV size, slightly decreased RV function, LAE, GENARO, MAC, MV not well visualized, moderate MR, mid to mod TR, trace to small pericardial effusion - cardiology consulted. cont lasix 40mg iv qday, daily weights, fluid restriction, I/Os - 02/23, lungs w/ scant crackles. still with LE edema likely 2/2 to superimposed hepatic + renal issues. albumin 3.1 BNP 7470 Diuresis limited due to borderline blood pressure. Will add midodrine for blood pressure along with albumin. Will increase midodrine to 5 mg t.i.d. # ELIZABETH on CKD stage 3 - baseline sCR 1.7-2.0. Peaked to 4.60 in this admission. now trending down - nephrology consulted, though to be due to outlet obstruction vs ATN vs low effective arterial volume - cont trending renal function. biopsy still a consideration if it gets worse again CK normal proteinuria: 2.35 mg/mg TONIA screen is positive with elevaed CH50, noraml C3 and C4 Elevated kappa/lambda ratio ERNIE urine and serum pending Biopsy of kidney was planned however limited due to elevated INR and hence has been canceled. # a fib w/ RVR - previously on sotalol. dc'ed 2/ to prolonged QTc. amiodarone also dc'ed 2/2 elevated LFTs - complicated by low BP due to other issues. cardiology following. metoprolol was on hold for low BP but 02/22 evening restarting 50mg po bid per cardiology. 02/23 tachycardia, appreciate cardiology recs. - hypokalemia, cont replacing. cont tele monitor. pradaxa on hold. consider renal dosing when restarting tsh is normal Up titration be on metoprolol 100 mg b.i.d. per Cardiology Appears he used to be on 200 mg b.i.d. at home Increase metoprolol to 125 mg b.i.d. with hold parameters # hx HTN - torsemide on hold. cont lasix iv. metoprolol started at lower dose since his BP's have been soft. giving albumin 50G x 1 to assist with intravascular volume # recent IVH 01/2023 - monitored at [facility], upon discharge his pradaxa was restarted #NIDDM - accuchecks w/ ISS # cellulitis/UTI - cont ciprofloxacin, follow WBC and cultures finish the course. # stool occult positive - unclear why this was taken. consult GI - 02/23 GI recommend monitoring, no scope for now h and h remains stable # transaminitis - he has had elevated LFT as far back as 2020. unclear etiology and it doesn't appear it has been investigated. his LFTs are trending up and it is unclea
[2023-02-28 16:52] LABS: Glucose Point of Care 234 mg/dl (65-105)
[2023-02-28 17:36] LABS: Lactic Acid Reflex 8.3 mmol/L (0.7-2.0)
[2023-02-28] MEDS: SODIUM CHLORIDE 0.9% IV 250 ML 999 ML IV CONT (18:56)
[2023-02-28] MEDS: SODIUM CHLORIDE 0.9% IV 1,000 ML 75 ML IV CONT (19:03)
[2023-02-28 20:11] LABS: Reflex Lactic Acid Yes or No Add Lactic
--- NOTE | 2023-02-28 20:33 | PC.NURSE ---
Patient transferred from room 240 to ICU 9 per bed by Michael JACQUES and Stacie BREWSTER, report given to Ross JACQUES. Patient family at bedside during transfer and all patient belongings sent with patient.
[2023-02-28] MEDS: metroNIDAZOLE 500 MG/ISO 100ML 500 MG/100 ML BAG 100 MG IVPB (20:46)
[2023-02-28] MEDS: METOPROLOL TARTRATE 25 MG TABLET PO (21:00)
[2023-02-28] MEDS: METOPROLOL TARTRATE 50 MG TAB 100 MG PO (21:00)
[2023-02-28 21:18] LABS: Magnesium 2.3 mg/dL (1.6-2.3); Phosphorus 6.3 mg/dL (2.5-4.5)
[2023-02-28 21:25] LABS: Alanine Aminotransferase 98 U/L (6-50); Albumin Level 5.4 g/dL (3.5-5.1); Alkaline Phosphatase 124 U/L (38-126); Anion Gap 26 mmol/L (8-16); Aspartate Amino Transferase 118 U/L (17-59); Bilirubin,Total 3.8 mg/dL (0.2-1.3); Blood Urea Nitrogen 73 mg/dL (9-20); Calcium 9.3 mg/dL (8.4-10.2); Carbon Dioxide 16 mmol/L (22-30); Chloride 100 mmol/L (98-107); Estimated CRCL calculation 17 ml/min; Estimated Glomerular Filt Rate 15; Glucose 248 mg/dL (65-110); Potassium 4.4 mmol/L (3.4-5.0); Sodium 142 mmol/L (137-145)
[2023-02-28 21:26] LABS: Lactic Acid 7.3 mmol/L (0.7-2.0)
[2023-02-28] MEDS: SODIUM BICARBONATE 8.4% 150 MEQ in WATER, STERILE FOR INJECTION 950 ML 75 MEQ IV CONT (22:18)
[2023-02-28 23:49] LABS: Glucose Point of Care 271 mg/dl (65-105)
[2023-03-01] VITALS (29 sets, daily range): BP systolic 78–114; BP diastolic 42–74; PULSE 104–131; RESP 18–22; TEMP 35.8–37; O2SAT 91–98; BMI 31.8
[2023-03-01] MEDS: LORazepam INJ (*CRX) 2 MG/ML VIAL IV PUSH ×3 (01:03→16:37)
--- NOTE | 2023-03-01 01:03 | PC.NURSE ---
Addendum entered by Vito Jacobson RN 03/01/23 01:15: Another 2mg given at 0115 per and in the presence of Dr. Velasquez. Original Note: 2mg Ativan given at [address] Velasquez for procedural sedation. Given in the presence of MD, documented in MAY.
[2023-03-01] MEDS: metroNIDAZOLE 500 MG/ISO 100ML 500 MG/100 ML BAG 100 MG IVPB ×3 (01:53→12:23)
[2023-03-01] MEDS: ALBUMIN HUMAN 25% 25 GM/100 ML 200 ML IVPB ×3 (01:57→12:24)
[2023-03-01] MEDS: PHYTONADIONE ADULT INJ 10 MG in DEXTROSE 5% IN WATER 50 ML 100 MG IVPB (02:08)
[2023-03-01 03:47] LABS: Basophils Percent Auto 0.4 % (0.2-1.2); Hematocrit 27.6 % (42.0-52.0); Hemoglobin 7.3 g/dL (14.0-18.0); Immature Granulocyte Absolute 0.05 K/mm3 (0.00-0.031); Immature Granulocyte Percent A 0.6 % (0-0.5); Lymphocytes Absolute Auto 0.88 K/mm3 (0.9-3.2); Lymphocytes Percent Auto 10.3 % (18.3-44.2); Mean Corpuscular HGB Conc 26.4 g/dl (32-36); Mean Corpuscular Hemoglobin 26.1 pg (26-34); Mean Corpuscular Volume 98.6 fl (80-100); Mean Platelet Volume 12.9 fl (7.4-10.4); Monocytes Absolute Auto 0.7 K/mm3 (0.1-0.6); Monocytes Percent Auto 8.2 % (2.6-8.5); Neutrophils Absolute Auto 6.9 K/mm3 (1.3-6.7); Neutrophils Percent Auto 80.5 % (45.5-73.1); Nucleated Red Blood Cells Absolute Auto 0.1 K/mm3 (0.0-0.012); Nucleated Red Blood Cells Perc 0.7 % (0.0-0.2); Platelet Count Result 149 k/mm3 (150-375); Red Cell Distribution Width 24.5 % (11.5-14.5); White Blood Count 8.5 K/mm3 (4.5-10.0)
[2023-03-01 04:07] LABS: INR 3.6; Prothrombin Time 38.9 Seconds (11.1-14.7)
[2023-03-01 04:08] LABS: Partial Thromboplastin Time 79.3 SECONDS (22.3-36.8)
[2023-03-01 04:32] LABS: Anisocytosis 1+ (NORMAL); Burr Cells 1+ (NORMAL); Hypochromasia 1+ (NORMAL); Ovalocytes 1+ (NORMAL); Platelet Estimate Adequate (Adequate); Polychromasia 1+ (NORMAL); Schistocytes Rare (NORMAL)
[2023-03-01] MEDS: CEFEPIME 2 GM/NS 50 ML 2 GM/50 ML BAG IVPB (04:34)
[2023-03-01 04:54] LABS: Alanine Aminotransferase 102 U/L (6-50); Albumin Level 5.4 g/dL (3.5-5.1); Alkaline Phosphatase 114 U/L (38-126); Anion Gap 22 mmol/L (8-16); Aspartate Amino Transferase 155 U/L (17-59); Bilirubin,Total 3.5 mg/dL (0.2-1.3); Blood Urea Nitrogen 79 mg/dL (9-20); Calcium 9.1 mg/dL (8.4-10.2); Carbon Dioxide 19 mmol/L (22-30); Chloride 100 mmol/L (98-107); Estimated CRCL calculation 17 ml/min; Estimated Glomerular Filt Rate 16; Glucose 226 mg/dL (65-110); Magnesium 2.3 mg/dL (1.6-2.3); Potassium 4.8 mmol/L (3.4-5.0); Sodium 141 mmol/L (137-145)
--- NOTE | 2023-03-01 05:20 | WPDPROCEDUR ---
Procedures Central Line Placement Right IJ: Central Line Date: 03/01/23 Central Line Time: 01:40 Consent: I have discussed with the patient and/or surrogate, the non-emergent placement of a central venous catheter, including its clinical necessity/indication and associated potential risks and complications. The patient and/or surrogate understand(s) and acknowledge(s) the need to proceed with central venous catheter insertion as an important element of the patient's clinical management. Time Out Performed: Yes Patient Position: trendelenburg Patient placed on monitor/pulse ox: Yes Provider Prep: mask, sterile gown, sterile gloves, Max. sterile barrier precautions, cap and hand hygiene with conventional soap/water or alcohol based hand rub Central line prep: 2% Chlorhexidine scrub Local anesthesia used: other anesthetic (Ativan) Sterile US Technique with sterile gel/sterile probe covers: Yes Central line lumen inserted: triple Telugu: 15 Length (cm): 15 Depth of Insertion (cm): 15 Post Procedure: sutured in place, good blood return, all ports aspirated, flushed, capped, transparent dressing, hemostatic product, antimicrobial product, securement product and aseptic technique maintained throughout procedure Post procedure x-ray: tip of catheter in good position and no pneumothorax seen Patient tolerated procedure: no complications Complications: none
[2023-03-01] MEDS: CENTRAL LINE FLUSH 10 ML IV PUSH ×2 (06:12→13:15)
[2023-03-01 07:39] LABS: Glucose Point of Care 202 mg/dl (65-105)
[2023-03-01] MEDS: FENTANYL 2,500MCG/NS250ML(*CRX 2,500 MCG/250 ML BAG IV CONT (08:40)
[2023-03-01] MEDS: MIDAZOLAM 100MG/NS 100ML(*CRX) 100 MG/100 ML BAG IV CONT (08:47)
--- NOTE | 2023-03-01 08:55 | WPDCNINT ---
Assessment and Plan Assessment and plan (1) Acute respiratory failure: Code(s): J96.00 - Acute respiratory failure, unspecified whether with hypoxia or hypercapnia Status: Acute Assessment and Plan: Acute respiratory failure likely related to shock, hypoxia, altered mental status. -03/01: intubated for airway protection and hypoxia -currently on CMV mode of ventilation, peep of 5 and 45% FiO2, maintain O2 sats greater than 92% -chest x-ray and ABGs reviewed -sedated with fentanyl and Versed infusion, maintain RASS of 0 to -2, daily sedation vacation (2) Shock: Code(s): R57.9 - Shock, unspecified Status: Acute Assessment and Plan: Shock, multifactorial could be septic versus cardiogenic versus hypovolemic secondary to diuresis -elevated lactic acid which peaked at 8.3 -patient given 1 L IV fluid bolus, -on bicarb infusion 75 mL/hour -patient also on albumin for volume expansion -lactic acid slowly trending down -acute on chronic kidney injury -continue phenylephrine, maintain MAP > 65-70 mmHg, SBP > 100 mmHg for adequate end organ perfusion (3) Acute kidney injury superimposed on CKD: Code(s): N17.9 - Acute kidney failure, unspecified; N18.9 - Chronic kidney disease, unspecified Status: Acute Assessment and Plan: Acute on chronic kidney disease stage 3 (baseline creatinine seems to be between 1.50-2.00) -on admission patient's creatinine was 4.20 -on arrival to the ICU on 02/27 her creatinine was 3.20 -given 1 L IV fluid bolus -new sodium bicarb infusion -continue albumin for volume expansion -nephrology already following the patient -monitor urine output, renal function and electrolytes -discussed with Nephrology, given that the patient is negative fluid balance, will give additional IV fluids (4) Afib: Code(s): I48.91 - Unspecified atrial fibrillation Status: Acute Assessment and Plan: Patient with AFib RVR, has failed cardioversion, failed amiodarone due to elevated LFTs, failed sotalol due to prolonged QTc. 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 -agree with John Paul-Synephrine at this time, no other recommendations -hold anticoagulation (5) Acute on chronic heart failure with preserved ejection fraction (HFpEF): Code(s): I50.33 - Acute on chronic diastolic (congestive) heart failure Status: Acute Assessment and Plan: Patient with diastolic heart failure -anasarca with bilateral lower extremity pitting edema -was aggressively diuresed, currently in significant negative fluid balance -hold diuresis at this time as patient is in shock, and receiving gentle hydration -will continue to monitor (6) Anemia: Code(s): D64.9 - Anemia, unspecified Status: Acute Assessment and Plan: Patient with anemia, likely related to patient being on Pradaxa, shock, sepsis, -stool occult was positive, this could also be related to GI -will increase Protonix IV to q.12h -will transfuse as needed (7) Elevated LFTs: Code(s): R79.89 - Other specified abnormal findings of blood chemistry Status: Acute Assessment and Plan: Elevated LFTs could be related to amiodarone, hypotension/shock, right heart failure, chronic kidney disease -LFTs are trending down, will continue to monitor -elevated bilirubin -02/23: Abdominal ultrasound 9 mm pancreatic cyst. The differential diagnosis includes pseudocyst, intraductal papillary mucinous neoplasm (IPMN), mucinous cystic neoplasm (MCN), serous cystadenoma, and neuroendocrine tumor. Consider abdomen MRI without and with contrast in 2 years. Level was normal without focal lesion gallbladder was normal in size no gallstones or gallbladder wall thickening
--- NOTE | 2023-03-01 08:55 | WPDPROCEDUR ---
Procedures Intubation Intubation Date: 03/01/23 Intubation Time: 08:10 Consent: Pt is a full code A pre-procedural Time-Out was completed immediately before starting the procedure and confirmed: Patient Identification, Site, Procedure, Patient Position and the Availability of Requisite Equipment: Yes Sedative: etomidate Laryngoscope: fiber optic video scope Assist device used: fiber optic device ET tube size: 8 Tube secured depth (cm): 24 Tube secured location: lips Tube placement confirmation: visualized tube passing through cords, equal breath sounds bilaterally, no breath sounds over epigastrium and confirmation by capnometry Patient tolerated procedure: well Intubation complications: none
[2023-03-01] MEDS: LACTATED RINGERS 500 ML IV CONT (09:19)
[2023-03-01] MEDS: RAPID SEQUENCE INTUBATION KIT 1 EACH (09:19)
[2023-03-01] MEDS: PANTOPRAZOLE SODIUM IV 40 MG VIAL IV PUSH ×2 (09:25→09:28)
[2023-03-01] MEDS: MIDODRINE HCL 2.5 MG TABLET 5 MG PO ×2 (09:26→12:41)
[2023-03-01] MEDS: MINERAL OIL/WHITE PETROLATUM OINTMENT 1 APPLIC EACH EYE (09:28)
[2023-03-01 09:39] LABS: Alveolar/Arterial O2 Gradient 171.1 mmHg; Base Excess ABG -7.4 mEq/l (+/-2.0); Carboxyhemoglobin 1.1 % THb (0-2.0); Fractional Inspired Oxygen 50 %; HCO3 ABG 17.3 mEq/l (22.0-26.0); Methemoglobin ABG 0.3 %THb (0-1.5); Oxygen Content ABG 10.1 %vol (16.0-22.0); Oxyhemoglobin 96.7 % THb (90.0-100.0); PCO2 ABG 31.3 mmHg (35.0-45.0); PO2 ABG 162.7 mmHg (80.0-100.0); PO2 FiO2 Ratio Arterial Blood 3.25 %; Reduced Hemoglobin 1.9 %THb (0-5.0); pH ABG 7.361 (7.350-7.450)
[2023-03-01 09:41] LABS: Modified Allen's Test Pass; Site Drawn LEFT RADIAL; Total Hemoglobin 7.1 g/dL (12.0-18.0)
[2023-03-01 09:42] LABS: Arterial Blood Gas Ventilator rate 22 /MIN; Device VENTILATOR
[2023-03-01 09:43] LABS: Arterial Blood Gas PEEP 5 cmH2O; Arterial Blood Gas Tidal Volume 450 ml; Arterial Blood Gas Vent Mode CMV
--- NOTE | 2023-03-01 10:19 | PCOTNOTE ---
Pt. is currently intubated. D/C OT orders. Reorder when appropriate to participate.
[2023-03-01 10:54] LABS: Lactic Acid Reflex 6.9 mmol/L (0.7-2.0)
[2023-03-01 11:10] LABS: Vancomycin Random 11.3 ug/mL (10-20)
[2023-03-01] MEDS: SODIUM CHLORIDE 0.9% IV 500 ML IV CONT (12:24)
[2023-03-01 12:33] LABS: Glucose Point of Care 207 mg/dl (65-105)
[2023-03-01] MEDS: INSULIN ASPART (*BKC) 100 UNITS/ML SUB-Q (12:41)
[2023-03-01] MEDS: VANCOMYCIN 1,500 MG/NS 500 ML 1,500 MG/500 ML BAG 250 MG IVPB (13:15)
--- NOTE | 2023-03-01 13:20 | PM.PNCARD ---
Progress Note: A&P Assessment and Plan (1) Acute respiratory failure: Code(s): J96.00 - Acute respiratory failure, unspecified whether with hypoxia or hypercapnia Status: Acute Assessment and Plan: Acute respiratory failure necessitating intubation and mechanical ventilatory support. Multifactorial most likely secondary to current shock, hypoxia and altered mental status. He remains sedated on Versed and fentanyl. Wean as tolerated and appropriate. Defer to Critical Care in this regard. (2) Shock: Code(s): R57.9 - Shock, unspecified Status: Acute Assessment and Plan: Likely multifactorial including sepsis, hypovolemia secondary to severe anemia and intravascular volume depletion related diuresis and negative fluid balance. IV fluid boluses tolerated. Wean pressors as is feasible. Repeat blood cultures pending. EF by echocardiogram 02/18/2023 65-70% with RV enlargement and hypokinesis moderate pulmonary hypertension RVSP 55 mm Hg. Metoprolol discontinued. He remains on midodrine 5 mg 3 times daily. Continue metronidazole, cefepime. I would hold Jardiance for now given acute on chronic kidney injury, hypotension/shock. LFTs worsening once again as above. Unfortunately in this very pleasant gentleman prognosis very poor in light of multiorgan system failure. Comfort measure discussions appropriate given the multitude and complexity of acute medical issues. Continue to monitor LFTs, coagulation studies. (3) Atrial fibrillation with RVR: Code(s): I48.91 - Unspecified atrial fibrillation Status: Acute Assessment and Plan: Persistent atrial fibrillation with RVR, difficult to control particular in light of relative hypotension. Heart rate elevated but reasonable. Metoprolol has been held secondary to shock on pressor support. (4) Acute on chronic heart failure with preserved ejection fraction (HFpEF): Code(s): I50.33 - Acute on chronic diastolic (congestive) heart failure Status: Acute Assessment and Plan: Relatively stable, more right-sided symptoms. IV Lasix on hold due to hypotension. Continue to monitor volume status. Monitor renal function closely. (5) Acute on chronic renal failure: Code(s): N17.9 - Acute kidney failure, unspecified; N18.9 - Chronic kidney disease, unspecified Status: Acute Assessment and Plan: Renal function worsening once again elevated BUN and creatinine currently 79 and 3.7 respectively. Monitor volume status closely. Agree with IV fluid resuscitation judiciously. (6) Chronic anemia: Code(s): D64.9 - Anemia, unspecified Status: Acute Assessment and Plan: Patient remains significantly anemic hemoglobin stable relatively at 7.3 today. Follow H& H. Monitor for bleeding. Remains off systemic anticoagulation. DVT prophylaxis advised. Monitor platelet count. Subjective Date/time seen: 03/01/23 13:20 Interval history: Cardiology follow up for AF, CHF State he is feeling well today. Does not have any specific complaints. 02/24/23: Heart rate remains elevated despite increasing metoprolol yesterday. He continues to deny feeling any palpitations. 02/27/2023: Patient appears mildly confused this afternoon describing how he got upset after being told there is no wrench at his house as he claimed there was. Denies palpitations, chest pain. States his breathing is fine at this time. He remains in AFib with RVR heart rate 110s to 120s typically. He states he feels a lot better today as he was upset yesterday. Date of service 03/01/2023: Overnight, patient became hypotensive with increasing lactic acid transfer to the ICU for further management. Central line was placed, however, due to agitation apparently patient had received Ativan with worsening mentation resulting in respiratory distress necessitating intubation for airway for traction in oxygenation. Patient was also hypotensive
--- NOTE | 2023-03-01 13:29 | P.PNNP_ITS ---
Progress Note: A&P Assessment and Plan (1) ELIZABETH (acute kidney injury): Code(s): N17.9 - Acute kidney failure, unspecified Status: Acute Assessment and Plan: * worse this AM * etiology? -- suspect an element of ATN now * sinitial uspicion fell on obstruction -- however, despite barrientos catheter placement, creatininie not coming down.... * evaluation to date: * renal ultrasound with left renal atrophy * UA with blood and protein * urine electrolytes non-prenal * CPK low * serological testing noted * had planned renal biopsy but INR elevated * follow trend of repeat labs and UOP (2) Chronic kidney disease, stage 3b: Code(s): N18.32 - Chronic kidney disease, stage 3b Status: Acute Assessment and Plan: * baseline creatinine runs around 1.4 - 2.0mg/dl in the last several months * suspect secondary to hypertension, diabetes, and age related change (3) Shock: Code(s): R57.9 - Shock, unspecified Status: Acute Assessment and Plan: * likely multiple issues: * cardiogenic versus hypovolemic versus septic.... * noted elevated lactic acid * given negative fluid balance with diuresis, IVFs now * bicarb infusion to compensate for acidosis * continue vasopressor support (4) Acute respiratory failure: Code(s): J96.00 - Acute respiratory failure, unspecified whether with hypoxia or hypercapnia Status: Acute Assessment and Plan: * due to shock, hypoxia, and altered mental status * intubated this AM for airway protection and ongoing hypoxia * continue ventilator support (5) Paroxysmal atrial fibrillation: Code(s): I48.0 - Paroxysmal atrial fibrillation Status: Acute Assessment and Plan: * rate control strategy * Cardiology following * holding anticoagulation currently (6) Anemia: Code(s): D64.9 - Anemia, unspecified Status: Acute Assessment and Plan: * due to iron deficiency and ELIZABETH along with CKD * follow trend of H/H (7) CHF (congestive heart failure): Code(s): I50.9 - Heart failure, unspecified Status: Acute Assessment and Plan: * appears right sided based on last Echo * good urine output noted (on diuretics) * follow volume status (8) Type 2 diabetes mellitus: Qualifiers: Diabetes mellitus snf insulin use: without meterman use Diabetes mellitus complication status: without complication Qualified Code(s): E11.9 - Type 2 diabetes mellitus without complications Code(s): E11.9 - Type 2 diabetes mellitus without complications Status: Chronic Assessment and Plan: * follow accu-cheks * glycemic control per hospitalists Discussed case with Dr. Valiente. Subjective Date/time seen: 03/01/23 13:29 Interval history: Follow-up for acute kidney injury/acute renal failure on chronic kidney disease. Events noted overnight and earlier this morning -- worsening hypotension and la ctic acidosis noted yesterday afternoon/evening, transferred to ICU and central line placed with subsequent initiation of vasopressor therapy; mental status wprse this AM with inability to protect his airway so intubated and placed on mechanical ventilation. Exam Narrative: General: elderly male intubated and on mechanical ventilation Heart: tachycardic, normal S1 and S2; no rub Lungs: coarse breath sounds throughtout Abdomen: soft, nontender, nondistended, positive bowel sounds Extremities: no cyanosis or clubb
--- NOTE | 2023-03-01 13:29 | PM.PNNEP ---
Progress Note: A&P Assessment and Plan (1) ELIZABETH (acute kidney injury): Code(s): N17.9 - Acute kidney failure, unspecified Status: Acute Assessment and Plan: worse this AM etiology? -- suspect an element of ATN now sinitial uspicion fell on obstruction -- however, despite barrientos catheter placement, creatininie not coming down.... evaluation to date: renal ultrasound with left renal atrophy UA with blood and protein urine electrolytes non-prenal CPK low serological testing noted had planned renal biopsy but INR elevated follow trend of repeat labs and UOP (2) Chronic kidney disease, stage 3b: Code(s): N18.32 - Chronic kidney disease, stage 3b Status: Acute Assessment and Plan: baseline creatinine runs around 1.4 - 2.0mg/dl in the last several months suspect secondary to hypertension, diabetes, and age related change (3) Shock: Code(s): R57.9 - Shock, unspecified Status: Acute Assessment and Plan: likely multiple issues: cardiogenic versus hypovolemic versus septic.... noted elevated lactic acid given negative fluid balance with diuresis, IVFs now bicarb infusion to compensate for acidosis continue vasopressor support (4) Acute respiratory failure: Code(s): J96.00 - Acute respiratory failure, unspecified whether with hypoxia or hypercapnia Status: Acute Assessment and Plan: due to shock, hypoxia, and altered mental status intubated this AM for airway protection and ongoing hypoxia continue ventilator support (5) Paroxysmal atrial fibrillation: Code(s): I48.0 - Paroxysmal atrial fibrillation Status: Acute Assessment and Plan: rate control strategy Cardiology following holding anticoagulation currently (6) Anemia: Code(s): D64.9 - Anemia, unspecified Status: Acute Assessment and Plan: due to iron deficiency and ELIZABETH along with CKD follow trend of H/H (7) CHF (congestive heart failure): Code(s): I50.9 - Heart failure, unspecified Status: Acute Assessment and Plan: appears right sided based on last Echo good urine output noted (on diuretics) follow volume status (8) Type 2 diabetes mellitus: Qualifiers: Diabetes mellitus fci insulin use: without fci use Diabetes mellitus complication status: without complication Qualified Code(s): E11.9 - Type 2 diabetes mellitus without complications Code(s): E11.9 - Type 2 diabetes mellitus without complications Status: Chronic Assessment and Plan: follow accu-cheks glycemic control per hospitalists Discussed case with Dr. Valiente. Subjective Date/time seen: 03/01/23 13:29 Interval history: Follow-up for acute kidney injury/acute renal failure on chronic kidney disease. Events noted overnight and earlier this morning -- worsening hypotension and lactic acidosis noted yesterday afternoon/evening, transferred to ICU and central line placed with subsequent initiation of vasopressor therapy; mental status wprse this AM with inability to protect his airway so intubated and placed on mechanical ventilation. Exam Narrative: General: elderly male intubated and on mechanical ventilation Heart: tachycardic, normal S1 and S2; no rub Lungs: coarse breath sounds throughtout Abdomen: soft, nontender, nondistended, positive bowel sounds Extremities: no cyanosis or clubbing; 1+ edema Skin: warm and intact Objective Data Vital Signs Vital Signs: Vital Signs Temp Pulse Resp BP Pulse Ox O2 Del Method O2 Flow Rate 03/01/23 13:20 98.2 F 128 H 22 H 100/68 97 03/01/23 12:00 118 H 03/01/23 08:00 124 H 03/01/23 12:00 127 H 22 H 97 Mechanical Ventilation 03/01/23 12:00 97.4 F L 127 H 22 H 100/74 97 03/01/23 11:10 114 H 98 Mechanical Ventilation 03/01/23 08:00 108 H 22 H 95 Mechanical Ventila
[2023-03-01 13:30] LABS: Reflex Lactic Acid Yes or No Add Lactic
[2023-03-01 14:13] LABS: Lactic Acid 7.4 mmol/L (0.7-2.0)
[2023-03-01] MEDS: SODIUM BICARBONATE 8.4% 150 MEQ in WATER, STERILE FOR INJECTION 950 ML 75 MEQ IV CONT (15:56)
[2023-03-01] MEDS: MORPHINE SULFATE INJ (*CRX) 10 MG/ML AMP 5 MG IV PUSH (16:37)
--- NOTE | 2023-03-01 18:16 | P.DN_ITS ---
Discharge Summary Date and Time Date of : 03/01/23 Time of : 16:42 Provider Pronounced By: Jamia Vazquez RN Samantha Eastman RN Probable Cause of Probable Cause of : shock Summary Hospital Course: Mr. Rao, a 77M w/ multiple comorbidities presented with swelling and shortness of breath on 02/17/23. On 02/28 he developed shock and lactic acidosis, transferred to ICU. On 03/01/23 the family elected to withdraw care and shortly after extubation the patient . Additional Data Confirmation of as documented by pronouncing clinician: Pupillary Reflex, Palpable Pulses, Response to Stimuli, Heart Tones and Breath Sounds Name of Provider Notified: Dr. Rocco Riley Time Provider Notified: 17:29 Was code activated?: No Provider Requests Autopsy: No Family Requests Autopsy: No Health And Safety Tech Notified: Yes Date [facility] Notified of : 03/01/23 Time [facility] Notified of : 17:30
== END 2023-03-01 16:42 | disposition expired | DRG 682 ==
LOC: ANHED 09:51 → ANH3MEDSUR 11:45 → ANH2MED 13:35 → ANHICU 02-28 20:31
PROVIDERS: General Practice; Internal Medicine; Internal Medicine Nephrology; Student in an Organized Health Care Education/Training Program; Admitting Provider Internal Medicine; Emergency Provider Emergency Medicine; PCP Family Medicine; Visit Provider Internal Medicine
DX: N17.9 Acute kidney failure, unspecified (principal); A41.9 Sepsis, unspecified organism; I50.33 Acute on chronic diastolic (congestive) heart failure; I61.5 Nontraumatic intracerebral hemorrhage, intraventricular; J69.0 Pneumonitis due to inhalation of food and vomit; J96.01 Acute respiratory failure with hypoxia; R65.21 Severe sepsis with septic shock; L03.116 Cellulitis of left lower limb; L03.115 Cellulitis of right lower limb; Z20.822 Contact with and (suspected) exposure to COVID-19; E11.22 Type 2 diabetes mellitus with diabetic chronic kidney disease; N18.32 Chronic kidney disease, stage 3b; I25.10 Atherosclerotic heart disease of native coronary artery without angina pectoris; D64.9 Anemia, unspecified; R57.8 Other shock; R57.1 Hypovolemic shock; I48.0 Paroxysmal atrial fibrillation; N13.9 Obstructive and reflux uropathy, unspecified; R33.9 Retention of urine, unspecified; G47.30 Sleep apnea, unspecified; E86.0 Dehydration; E78.5 Hyperlipidemia, unspecified; Z96.649 Presence of unspecified artificial hip joint; Z79.01 Long term (current) use of anticoagulants; Z95.5 Presence of coronary angioplasty implant and graft; Z98.41 Cataract extraction status, right eye; E87.6 Hypokalemia; R19.5 Other fecal abnormalities; I95.9 Hypotension, unspecified; Z66 Do not resuscitate
CPT/HCPCS: 31500; 36415; 36600; 70450; 71045; 71250; 74176; 76705; 76775; 80053; 80074; 80202; 81001; 82140; 82274; 82375; 82550; 82570; 82607; 82728; 82746; 82805; 82948; 83050; 83540; 83550; 83605; 83735; 83880; 83883; 84100; 84156; 84300; 84484; 84540; 85025; 85027; 85046; 85610; 85652; 85730; 86038; 86039; 86160; 86162; 86334; 86335; 87040; 87086; 87637; 87641; 92610; 93005; 93306; 94002; 94762; 96374; 97110; 97116; 97161; 97165; 97530; 97535; 99285; A9270; C1751; C9113; G0378; J0692; J1644; J1815; J1836; J1940; J2060; J2250; J2270; J2371; J3010; J3370; J3430; J7030; J7040; J7060; J7120; P9047; Q4081